=== PATIENT | male | born 1940 | race Caucasian/White ===

== ENCOUNTER → 2020-04-03 13:45 | Outpatient (BNVA) | payer MEDICARE, BC, SELFPAY | PROVIDERS: PCP Internal Medicine; Referring Provider Internal Medicine; Visit Provider Internal Medicine | DX: J44.9 Chronic obstructive pulmonary disease, unspecified (principal); J40 Bronchitis, not specified as acute or chronic; J30.9 Allergic rhinitis, unspecified; Z79.51 Long term (current) use of inhaled steroids | CPT/HCPCS: 99213 ==

== ENCOUNTER → 2020-05-01 13:27 | Outpatient (BNVA) | payer MEDICARE, BC, SELFPAY | PROVIDERS: PCP Internal Medicine; Referring Provider Internal Medicine; Visit Provider Internal Medicine | DX: J44.9 Chronic obstructive pulmonary disease, unspecified (principal); J30.9 Allergic rhinitis, unspecified; R26.81 Unsteadiness on feet; Z79.899 Other long term (current) drug therapy | CPT/HCPCS: 99212 ==

== ENCOUNTER 2020-05-09 | Outpatient (REF) | payer MEDICARE, BC, SELFPAY ==
[2020-05-09 11:08] LABS: MANUAL DIFF FLAG NO
[2020-05-09 11:10] LABS: Basophils Percent Auto 0.3 % (0-2); Eosinophils Absolute Auto 0.1 X10*3/uL (0.0-0.4); Hematocrit 25.4 % (42-52); Hemoglobin 8.5 g/dl (14.0-18.0); Imm Gran Abs Auto 0.33 X10*3/uL (0.00-0.03); Imm Gran Pct Auto 2.8 % (0.0-0.4); Lymphocytes Absolute Auto 1.6 X10*3/uL (1.2-4.9); Lymphocytes Percent Auto 13.5 % (20-40); Mean Corpuscular HGB Conc 33.5 g/dl (31.0-36.0); Mean Corpuscular Hemoglobin 32.4 pg (27.0-33.0); Mean Corpuscular Volume 96.9 fL (80-98); Mean Platelet Volume 10.2 fL (9.4-12.4); Monocytes Absolute Auto 0.7 X10*3/uL (0.1-1.2); Monocytes Percent Auto 6.1 % (2-11); Neutrophils Absolute Auto 9.1 X10*3/uL (2.0-8.3); Neutrophils Percent Auto 76.3 % (45-73); Platelet Count 264 X10*3/uL (160-400); Red Blood Count 2.62 X10*6/uL (4.60-5.80); Red Cell Distribution Width 16.1 % (11.0-16.0); White Blood Count 11.9 X10*3/uL (4.8-10.8)
== END 2020-05-09 00:01 | disposition home or self-care (01) ==
LOC: HO.LHD
PROVIDERS: Visit Provider Internal Medicine
DX: D64.9 Anemia, unspecified (principal)
CPT/HCPCS: 36415; 85025

== ENCOUNTER 2020-05-28 12:38 | Outpatient (REF) | payer MEDICARE, BC, SELFPAY ==
[2020-05-28 12:45] LABS: MANUAL DIFF FLAG NO
[2020-05-28 12:52] LABS: Basophils Percent Auto 0.3 % (0-2); Eosinophils Absolute Auto 0.1 X10*3/uL (0.0-0.4); Eosinophils Percent Auto 0.8 % (0-4); Hematocrit 26.7 % (42-52); Hemoglobin 8.7 g/dl (14.0-18.0); Imm Gran Abs Auto 0.24 X10*3/uL (0.00-0.03); Imm Gran Pct Auto 2.1 % (0.0-0.4); Lymphocytes Absolute Auto 2.6 X10*3/uL (1.2-4.9); Lymphocytes Percent Auto 21.9 % (20-40); Mean Corpuscular HGB Conc 32.6 g/dl (31.0-36.0); Mean Corpuscular Hemoglobin 31.5 pg (27.0-33.0); Mean Corpuscular Volume 96.7 fL (80-98); Mean Platelet Volume 10.7 fL (9.4-12.4); Monocytes Absolute Auto 0.8 X10*3/uL (0.1-1.2); Monocytes Percent Auto 6.5 % (2-11); Neutrophils Percent Auto 68.4 % (45-73); Platelet Count 364 X10*3/uL (160-400); Red Blood Count 2.76 X10*6/uL (4.60-5.80); Red Cell Distribution Width 16.1 % (11.0-16.0); White Blood Count 11.7 X10*3/uL (4.8-10.8)
[2020-05-28 13:33] LABS: Alanine Aminotransferase 19 U/L (0-40); Albumin Level 3.6 g/dL (3.5-5.0); Alkaline Phosphatase 55 U/L (39-117); Anion Gap 15 (12-20); Aspartate Amino Transferase 12 U/L (5-37); Blood Urea Nitrogen 24 mg/dL (9-16); Calcium 8.7 mg/dL (8.4-10.2); Carbon Dioxide 21 mmol/L (22-29); Chloride 109 mmol/L (96-108); Cholesterol 136 mg/dL; Estimated Glomerular Filt Rate > 60; Glucose Random 73 mg/dL (60-115); HDL Cholesterol 45 mg/dL; LDL Cholesterol Calculated 56 mg/dl; Potassium 4.4 mmol/l (3.3-5.1); Sodium 141 mmol/L (135-145); Total Protein 5.7 g/dL (6.5-8.0); Triglycerides 176 mg/dL
[2020-05-28 13:38] LABS: Vitamin D 25-OH Total 48.8 ng/mL (>30)
[2020-05-28 13:41] LABS: Bilirubin Total 0.3 mg/dL (0.0-1.0)
[2020-05-28 13:48] LABS: Creatinine Urine 70.85 mg/dL; Protein/Creatinine Ratio, Ur 1.92 (<0.2); Total Protein Urine Random 136 mg/dL (<12)
[2020-05-28 14:15] LABS: Folate > 20.0 ng/mL (> or = 4.0); Vitamin B12 > 2000 pg/mL (200-900)
[2020-05-28 14:17] LABS: Erythrocyte Sedimentation Rate 46 MM/HR (0-15)
[2020-05-28 17:27] LABS: Creatinine Urine 70.52 mg/dL
[2020-05-28 17:39] LABS: Microalbum/Creatinine Ratio Ur 1286.1 ug/mg cr
== END 2020-05-28 12:39 | disposition home or self-care (01) ==
LOC: HO.LNP 12:38
PROVIDERS: PCP Internal Medicine; Referring Provider Student in an Organized Health Care Education/Training Program; Visit Provider Internal Medicine
DX: E11.22 Type 2 diabetes mellitus with diabetic chronic kidney disease (principal); N18.9 Chronic kidney disease, unspecified; D63.1 Anemia in chronic kidney disease; I25.10 Atherosclerotic heart disease of native coronary artery without angina pectoris
CPT/HCPCS: 36415; 80053; 80061; 82043; 82306; 82607; 82746; 84156; 85025; 85652

== ENCOUNTER → 2020-05-29 11:16 | Outpatient (BNVA) | payer MEDICARE, BC, SELFPAY | PROVIDERS: PCP Internal Medicine; Visit Provider Internal Medicine | DX: J44.9 Chronic obstructive pulmonary disease, unspecified (principal); J30.9 Allergic rhinitis, unspecified; J45.909 Unspecified asthma, uncomplicated; D64.9 Anemia, unspecified; R26.81 Unsteadiness on feet | CPT/HCPCS: 99212 ==

== ENCOUNTER 2020-06-27 | Outpatient (REF) | payer MEDICARE, BC, SELFPAY ==
[2020-06-27 10:49] LABS: Hematocrit 25.9 % (42-52); Hemoglobin 8.6 g/dl (14.0-18.0); Mean Corpuscular HGB Conc 33.2 g/dl (31.0-36.0); Mean Corpuscular Volume 96.3 fL (80-98); Mean Platelet Volume 10.7 fL (9.4-12.4); Platelet Count 316 X10*3/uL (160-400); Red Blood Count 2.69 X10*6/uL (4.60-5.80); Red Cell Distribution Width 13.8 % (11.0-16.0); White Blood Count 13.9 X10*3/uL (4.8-10.8)
[2020-06-27 11:18] LABS: Alanine Aminotransferase 20 U/L (0-40); Albumin Level 3.8 g/dL (3.5-5.0); Alkaline Phosphatase 60 U/L (39-117); Anion Gap 16 (12-20); Aspartate Amino Transferase 10 U/L (5-37); Bilirubin Total 0.3 mg/dL (0.0-1.0); Blood Urea Nitrogen 39 mg/dL (9-16); Calcium 9.8 mg/dL (8.4-10.2); Carbon Dioxide 24 mmol/L (22-29); Chloride 104 mmol/L (96-108); Estimated Glomerular Filt Rate > 60; Glucose Random 196 mg/dL (60-115); Potassium 5.1 mmol/l (3.3-5.1); Sodium 139 mmol/L (135-145); Total Protein 5.8 g/dL (6.5-8.0)
== END 2020-06-27 00:01 | disposition home or self-care (01) ==
LOC: HO.LHD
PROVIDERS: Visit Provider Internal Medicine
DX: D64.9 Anemia, unspecified (principal)
CPT/HCPCS: 36415; 80053; 85027; Q3014

== ENCOUNTER 2020-06-27 23:25 | Inpatient (IN) | payer MEDICARE, BC, SELFPAY ==
[2020-06-27 23:43] VITALS: BP 121/55; PULSE 86; RESP 22; TEMP 36.4; O2SAT 95; BMI 26.6
[2020-06-28] VITALS (18 sets, daily range): BP systolic 128–177; BP diastolic 56–98; PULSE 73–88; RESP 14–24; TEMP 36.1–36.9; O2SAT 93–99
--- NOTE | 2020-06-28 00:16 | ECG_ITS ---
Test Reason : SOB Blood Pressure : / mmHG Vent. 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
--- NOTE | 2020-06-28 00:16 | XR_ITS ---
EXAMINATION: XR CHEST CLINICAL INFORMATION: Shortness of breath COMPARISON: 02/25/2020 TECHNIQUE: Frontal view of the chest was obtained. FINDINGS: Median sternotomy wires appear intact. Cardiac leads overlie the chest. Surgical clips overlie the mediastinum. The lungs are well expanded. There is no focal consolidation, edema, or effusion. No pneumothorax. The cardiomediastinal silhouette is within normal limits. No acute osseous abnormality. XR/XR chest 1V IMPRESSION: No acute pulmonary finding.
[2020-06-28] MEDS: Albuterol Sulfate (0.083%) 2.5 MG/3 ML VIAL.NEB 5 MG INHALE (01:24)
[2020-06-28 01:29] LABS: Basophils Percent Auto 0.1 % (0-2); Eosinophils Absolute Auto 0.1 X10*3/uL (0.0-0.4); Eosinophils Percent Auto 0.3 % (0-4); Hematocrit 25.7 % (42-52); Hemoglobin 8.5 g/dl (14.0-18.0); Imm Gran Abs Auto 0.37 X10*3/uL (0.00-0.03); Imm Gran Pct Auto 2.4 % (0.0-0.4); Lymphocytes Percent Auto 6.2 % (20-40); MANUAL DIFF FLAG NO; Mean Corpuscular HGB Conc 33.1 g/dl (31.0-36.0); Mean Corpuscular Hemoglobin 32.3 pg (27.0-33.0); Mean Corpuscular Volume 97.7 fL (80-98); Mean Platelet Volume 10.4 fL (9.4-12.4); Monocytes Absolute Auto 1.1 X10*3/uL (0.1-1.2); Monocytes Percent Auto 6.8 % (2-11); Neutrophils Percent Auto 84.2 % (45-73); Platelet Count 316 X10*3/uL (160-400); Red Blood Count 2.63 X10*6/uL (4.60-5.80); Red Cell Distribution Width 14.1 % (11.0-16.0); White Blood Count 15.4 X10*3/uL (4.8-10.8)
--- NOTE | 2020-06-28 01:29 | ED.SOB ---
HPI - SOB/Dyspnea General Chief Complaint: Dyspnea Stated Complaint: ASTHMA Time Seen by Provider: 06/28/20 00:02 Source: patient and EMS Mode of arrival: EMS Limitations: no limitations History of Present Illness HPI Narrative: 79-year-old male with history of COPD/asthma, former smoker, on daily steroid and bronchodilators therapy for his condition, was seen at his PCP office today for difficulty breathing was given bronchodilator partially felt better, then shortly started to worsen again called 911 with chief complain of coughing and difficulty breathing. Patient declined chest pain, patient had previous admission for COPD exacerbation in the past. Patient to not use supplemental oxygen at home. No lower extremity swelling or any or tenderness. Related Data Home Medications Medication Instructions Recorded Confirmed albuterol sulfate 90 mcg/actuation 90 mcg INHALATION Q6-8H PRN 03/17/20 06/27/20 aerosol inhaler alprazolam 0.5 mg tablet 0.5 mg PO DAILY PRN 03/17/20 06/27/20 blood sugar diagnostic #10 ea 03/17/20 06/27/20 ferrous sulfate 325 mg (65 mg 325 mg PO DAILY 03/17/20 06/27/20 iron) tablet,delayed release fluticasone 250 mcg-salmeterol 50 1 inh INHALATION DAILY 03/17/20 06/27/20 mcg/dose blistr powdr for inhalation fluticasone propionate 50 1 spray INTRANASAL DAILY 03/17/20 06/27/20 mcg/actuation nasal spray,suspension insulin glargine 100 unit/mL 100 unit SUBCUT DAILY 03/17/20 06/27/20 subcutaneous solution insulin lispro 100 unit/mL 100 sliding scale dose SUBCUT DAILY 03/17/20 06/27/20 subcutaneous solution ipratropium 0.5 mg-albuterol 3 mg 0.5 ml INHALATION Q4-6H 03/17/20 06/27/20 (2.5 mg base)/3 mL nebulization soln losartan 50 mg tablet 50 mg PO DAILY 03/17/20 06/27/20 tizanidine 4 mg tablet 4 mg PO TID 03/17/20 06/27/20 hydrocodone 5 mg-acetaminophen 325 1 tab PO BID PRN 05/29/20 06/27/20 mg tablet Previous Rx's Medication Instructions Recorded nystatin 100,000 unit/mL oral 4 ml PO .4 times a day PRN 90 Days 04/18/20 suspension #180 ml pantoprazole 40 mg tablet,delayed 40 mg PO DAILY #90 tab 05/06/20 release oxycodone 5 mg tablet 5 mg PO DAILY PRN 30 Days #30 tab 05/13/20 prednisone 5 mg tablet 5 mg PO DAILY 90 Days #90 tab 05/26/20 insulin syringe-needle U-100 0.5 #4 box 05/28/20 mL 31 gauge x 5/16 atorvastatin 20 mg tablet 20 mg PO DAILY #90 tab 06/03/20 furosemide 20 mg tablet 20 mg PO Q OTHER DAY 60 Days #30 06/18/20 tab diltiazem HCl 180 mg 180 mg PO BID 90 Days #180 cap 06/23/20 capsule,extended release 24 hr metformin 500 mg tablet 500 mg PO BID 90 Days #180 tab 06/23/20 sucralfate 1 gram tablet 1 g PO BID #180 tab 06/23/20 montelukast 10 mg tablet 10 mg PO DAILY #90 tab 06/25/20 Allergies Allergy/AdvReac Type Severity Reaction Status Date / Time ELLEN Inhibitors Allergy Severe DIFFICULTY Verified 06/28/20 01:47 [ELLEN INHIBITORS] BREATHING egg [EGGS] Allergy Severe DIFFICULTY Verified 06/28/20 01:47 BREATHING nut - unspecified [nut] Allergy Severe ANAPHYLAXIS Verified 06/28/20 01:47 acetic acid [VINEGAR] Allergy Unknown UNKNOWN Verified 06/28/20 01:47 hydrochlorothiazide Allergy Unknown Unknown Verified 06/28/20 01:47 mold Allergy Unknown SHORTNESS Verified 06/28/20 01:47 OF BREATH niacin [From SIMCOR] Allergy Unknown SHORTNESS Verified 06/28/20 01:47 OF BREATH penicillin V Allergy Unknown throat Verified 06/28/20 01:47 swelling simvastatin Allergy Unknown Unknown Verified 06/28/20 01:47 Sulfa (Sulfonamide Allergy Unknown SWELLING Verified 06/28/20 01:47 Antibiotics) [SULFA (SULFONAMIDE ANTIBIOTICS)] tramadol Allergy Unknown Unknown Verified 06/27/20 12:44 wheat Allergy Unknown UNKNOWN Verified 06/27/20 12:44 corn syrup [CORN SYRUP] AdvReac Mild N/D Verified 06/27/20 12:44 lactose [LACTOSE] AdvReac Mild N/V/D Unverified 04/03/20 14:54 FLU VACCINE Allergy Unknown Difficulty Uncoded 04/03/20 14:54 Breathing Review of Systems Review of Systems: All other systems are reviewed and are negative Constitutional: Reports as per HPI and Reports no additional constitutional complaints Eyes: Reports as per HPI and Reports no additional eye complaints Reports system reviewed and no additional complaints, except as documented Cardiovascular: Reports as per HPI and Reports no additional cardiovascular complaints Respiratory: Reports as per HPI and Reports no additional respiratory complaints Gastrointestinal: Reports as per HPI and Reports no additional gastrointestinal complaints Genitourinary: Reports no additional female genitourinary complaints Musculoskeletal: Reports no additional musculoskeletal complaints Skin/Breast: Reports system reviewed and no additional complaints, except as docu Psychiatric: Reports no additional psychiatric complaints Endocrine: Reports no additional endocrine complaints Hematologic/Lymphatic: Reports no additional hematologic/lymphatic complaints Allergic/Immunologic: Reports no additional allergic/immunologic complaints Reports system reviewed and no additional complaints, except as documented and Reports Abnormal speech present [facility] Past Medical History Medical History Allergic rhinitis Anxiety Bronchitis Cancer of skin of right ear Cataracts, bilateral Cholelithiasis Chronic kidney disease (CKD) stage G2/A1, mildly decreased glomerular filtration rate (GFR) between 60-89 mL/min/1.73 square meter and albuminuria creatinine ratio less than 30 mg/g COPD (chronic obstructive pulmonary disease) Coronary artery disease Erectile dysfunction GERD (gastroesophageal reflux disease) Hx of hiatal hernia Hypertension Osteoporosis Peripheral vascular disease PMR (polymyalgia rheumatica) Surgical History Hx of appendectomy S/P triple vessel bypass Family History Family History Family/Other Cancer Social History Social History Smoking Status: Former smoker Packs Per Day: 1 Advance Directives: No Physical Exam Vital Signs: Vital Signs: Last Vital Signs Temp 98.4 F 06/28/20 00:46 Pulse 78 06/28/20 01:35 Resp 20 06/28/20 00:46 BP 155/65 H 06/28/20 00:46 Pulse Ox 96 06/28/20 00:46 Body Mass Index 26.6 Vital signs have been reviewed as normal and appeared to be correct. Blood pressure in the high range. Heart rate normal. Respiration rate normal. Temperature normal. Oxygen saturation normal. Appearance: Alert. Oriented X3. No acute distress. Head: Normal external exam. Normocephalic. Atraumatic. No Jamil signs noted. No raccoon eyes noted Eyes: PERRLA. EOMI. Conjunctiva and sclera normal. Eyelids normal. ENT: EAC normal. TM's Normal. Pharynx normal. Uvula midline. Moist mucous membranes. No trismus noted. No drooling noted. No muffled voice noted. Neck: Normal inspection. Neck supple. FROM. No adenopathy. Thyroid Normal. No meningeal signs. No neck mass noted. CVS: Normal heart rate and rhythm. Heart sound normal. No murmurs noted. Pulses normal throughout. Respiratory: Mild respiratory distress. Painless inspiration. Moderate diffuse expiratory wheezes. No rales/rhonchi noted. Chest nontender. No accessory muscle usage noted, decreased air movement noted. Abdomen: Soft and nontender. Bowel sounds normal in all 4 quadrants. No distention noted. No organomegaly noted. No visible injury noted. Back: No CVA tenderness. Full range of motion noted. Skin: Skin warm and dry. Normal skin color. Normal skin turgor. No rashes/lesions/lacerations noted. Extremities: No lower extremity edema. Extremities exhibit normal range of motion. Extremities nontender. Neuro: Oriented X 3. No motor deficit. No sensory deficit. Reflexes normal. Course Course Course Narrative: Assessment and plan. 79-year-old male with history of COPD presented with COPD exacerbation. Admit for continuous bronchodilator, Solu-Medrol IV, magnesium. Leukocytosis (chronic likely secondary to chronic prednisone use). Not meeting criteria for SIRS. Lactic acidosis due to albuterol. MDM - SOB/Dyspnea Lab Data Result diagrams: 06/28/20 01:17 06/28/20 01:17 Labs: Lab Results 06/28/20 06/28/20 06/28/20 Range/Units 01:17 01:17 01:17 WBC 15.4 H (4.8-10.8) X10*3/uL RBC 2.63 L (4.60-5.80) X10*6/uL Hgb 8.5 L (14.0-18.0) g/dl Hct 25.7 L (42-52) % MCV 97.7 (80-98) fL MCH 32.3 (27.0-33.0) pg MCHC 33.1 (31.0-36.0) g/dl RDW 14.1 (11.0-16.0) % Plt Count 316 (160-400) X10*3/uL MPV 10.4 (9.4-12.4) fL Immature Gran % (Auto) 2.4 H (0.0-0.4) % Neut % (Auto) 84.2 H (45-73) % Lymph % (Auto) 6.2 L (20-40) % [place] % (Auto) 6.8 (2-11) % Eos % (Auto) 0.3 (0-4) % Baso % (Auto) 0.1 (0-2) % Lymph # (Auto) 1.0 L (1.2-4.9) X10*3/uL [place] # (Auto) 1.1 (0.1-1.2) X10*3/uL Eos # (Auto) 0.1 (0.0-0.4) X10*3/uL Baso # (Auto) 0.0 (0.0-0.2) X10*3/uL Abs Immat Gran (auto) 0.37 H (0.00-0.03) X10*3/uL Absolute Neuts (auto) 13.0 H (2.0-8.3) X10*3/uL Absolute Nucleated RBC 0.000 (0.0-0.012) X10*3/uL Nucleated RBC % (auto) 0.0 (0.0-0.2) /100WBC Sodium 140 (135-145) mmol/L Potassium 4.8 (3.3-5.1) mmol/l Chloride 104 (96-108) mmol/L Carbon Dioxide 25 (22-29) mmol/L Anion Gap 16 (12-20) BUN 42 H (9-16) mg/dL Creatinine 1.39 (0.5-1.4) mg/dL Estim Creat Clear Calc 41.0 Estimated GFR 49 Random Glucose 137 H (60-115) mg/dL Lactic Acid 3.3 H* (0.5-2.0) mmol/L Calcium 9.9 (8.4-10.2) mg/dL B-Natriuretic Peptide (<100) pg/mL Lipase 28 (8-78) U/L 06/28/20 Range/Units 01:17 WBC (4.8-10.8) X10*3/uL RBC (4.60-5.80) X10*6/uL Hgb (14.0-18.0) g/dl Hct (42-52) % MCV (80-98) fL MCH (27.0-33.0) pg MCHC (31.0-36.0) g/dl RDW (11.0-16.0) % Plt Count (160-400) X10*3/uL MPV (9.4-12.4) fL Immature Gran % (Auto) (0.0-0.4) % Neut % (Auto) (45-73) % Lymph % (Auto) (20-40) % [place] % (Auto) (2-11) % Eos % (Auto) (0-4) % Baso % (Auto) (0-2) % Lymph # (Auto) (1.2-4.9) X10*3/uL [place] # (Auto) (0.1-1.2) X10*3/uL Eos # (Auto) (0.0-0.4) X10*3/uL Baso # (Auto) (0.0-0.2) X10*3/uL Abs Immat Gran (auto) (0.00-0.03) X10*3/uL Absolute Neuts (auto) (2.0-8.3) X10*3/uL Absolute Nucleated RBC (0.0-0.012) X10*3/uL Nucleated RBC % (auto) (0.0-0.2) /100WBC Sodium (135-145) mmol/L Potassium (3.3-5.1) mmol/l Chloride (96-108) mmol/L Carbon Dioxide (22-29) mmol/L Anion Gap (12-20) BUN (9-16) mg/dL Creatinine (0.5-1.4) mg/dL Estim Creat Clear Calc Estimated GFR Random Glucose (60-115) mg/dL Lactic Acid (0.5-2.0) mmol/L Calcium (8.4-10.2) mg/dL B-Natriuretic Peptide 160 H (<100) pg/mL Lipase (8-78) U/L Imaging Data Chest x-ray: Radiologist's impression: No acute pathology. ECG Data Interpretation: Normal sinus rhythm at 75 beats per minutes, LVH, left axis deviation, normal intervals. Discharge Plan Discharge Clinical Impression: Acute exacerbation of chronic obstructive pulmonary disease Patient Disposition: Admitted As Inpatient
[2020-06-28] MEDS: Albuterol/Iprat 2.5/0.5MG 3 ML AMPUL.NEB INHALE (01:33)
[2020-06-28] MEDS: Magnesium Sulfate/H2O 2 GM/50 ML PIGGYBACK IV (01:55)
[2020-06-28 01:59] LABS: Lactic Acid 3.3 mmol/L (0.5-2.0)
[2020-06-28 02:02] LABS: Anion Gap 16 (12-20); Blood Urea Nitrogen 42 mg/dL (9-16); Calcium 9.9 mg/dL (8.4-10.2); Carbon Dioxide 25 mmol/L (22-29); Chloride 104 mmol/L (96-108); Estimated Glomerular Filt Rate 49; Glucose Random 137 mg/dL (60-115); Lipase 28 U/L (8-78); Potassium 4.8 mmol/l (3.3-5.1); Sodium 140 mmol/L (135-145)
[2020-06-28 02:05] LABS: B Type Natriuretic Peptide 160 pg/mL (<100)
[2020-06-28 02:14] LABS: Troponin-I High Sensitivity 48.9 ng/L (<3.5-35.0)
[2020-06-28 02:17] LABS: Influenza A PCR NEGATIVE (Negative); Influenza B PCR NEGATIVE (Negative); Resp Syncy Virus RNA Qual PCR NEGATIVE (Negative); SARS COV2 PCR INHOUSE NEGATIVE (Negative)
[2020-06-28 03:24] LABS: Reflex Lactate? Lactic Acid Added
--- NOTE | 2020-06-28 03:31 | P.HPHOSP_ITS ---
History of Present Illness Date of Service: 06/28/20 Chief Complaint: Shortness of breath, wheezing, failed outpatient treatment An 79 years old male with PMH of PMR, CKD, COPD on chronic prednisone who presents to the hospital with shortness of breath and wheezing, increased weakness. The patient reports that his baseline has been deteriorating over the last few months as he became much weaker and unable to get up and walk. His COPD has been fairly controlled over that time. Three days ago he started to have difficulty breathing associated with wheezes. He discussed with Dr. Holt and started home prednisone 40 mg daily with usage of the nebulizers 4 times a day but he continued to get worse and more dyspneic with any exertion so we decided to come to the hospital after discussing with Dr. Holt. In the emergency he was found to be hypoxic on multiple occasions on room air in 80s with minimal movement which recovers to 90s when he sits still. Treated with steroids, nebulizer and magnesium with fair response admitted to the hospital for further evaluation and treatment. Review of Systems Review of Systems: No fever, chills but reports general weakness and lethargy No chest pain, palpitation Dyspnea with minimal exertion, wheezes, cough No abdominal pain, nausea or vomiting No urinary symptoms No any rash or wounds PMFSH Medical History Allergic rhinitis Anxiety Bronchitis Cancer of skin of right ear Cataracts, bilateral Cholelithiasis Chronic kidney disease (CKD) stage G2/A1, mildly decreased glomerular filtration rate (GFR) between 60-89 mL/min/1.73 square meter and albuminuria creatinine ratio less than 30 mg/g COPD (chronic obstructive pulmonary disease) Coronary artery disease Erectile dysfunction GERD (gastroesophageal reflux disease) Hx of hiatal hernia Hypertension Osteoporosis Peripheral vascular disease PMR (polymyalgia rheumatica) Family History Family/Other Cancer Surgical History Hx of appendectomy S/P triple vessel bypass Social History Smoking Status: Unknown if ever smoked Packs Per Day: 1 Use of substances other than those prescribed or required for medical reasons: No Advance Directives: No Meds Allergies Allergy/AdvReac Type Severity Reaction Status Date / Time ELLEN Inhibitors Allergy Severe DIFFICULTY Verified 06/28/20 01:47 [ELLEN INHIBITORS] BREATHING egg [EGGS] Allergy Severe DIFFICULTY Verified 06/28/20 01:47 BREATHING nut - unspecified [nut] Allergy Severe ANAPHYLAXIS Verified 06/28/20 01:47 acetic acid [VINEGAR] Allergy Unknown UNKNOWN Verified 06/28/20 01:47 hydrochlorothiazide Allergy Unknown Unknown Verified 06/28/20 01:47 mold Allergy Unknown SHORTNESS Verified 06/28/20 01:47 OF BREATH niacin [From SIMCOR] Allergy Unknown SHORTNESS Verified 06/28/20 01:47 OF BREATH penicillin V Allergy Unknown throat Verified 06/28/20 01:47 swelling simvastatin Allergy Unknown Unknown Verified 06/28/20 01:47 Sulfa (Sulfonamide Allergy Unknown SWELLING Verified 06/28/20 01:47 Antibiotics) [SULFA (SULFONAMIDE ANTIBIOTICS)] tramadol Allergy Unknown Unknown Verified 06/27/20 12:44 wheat Allergy Unknown UNKNOWN Verified 06/27/20 12:44 corn syrup [CORN SYRUP] AdvReac Mild N/D Verified 06/27/20 12:44 lactose [LACTOSE] AdvReac Mild N/V/D Unverified 04/03/20 14:54 FLU VACCINE Allergy Unknown Difficulty Uncoded 04/03/20 14:54 Breathing Home Medications Medication Instructions Recorded Confirmed Type albuterol sulfate 90 mcg/actuation 90 mcg INHALATION Q6-8H PRN 03/17/20 06/27/20 History aerosol inhaler alprazolam 0.5 mg tablet 0.5 mg PO DAILY PRN 03/17/20 06/27/20 History blood sugar diagnostic #10 ea 03/17/20 06/27/20 History ferrous sulfate 325 mg (65 mg 325 mg PO DAILY 03/17/20 06/27/20 History iron) tablet,delayed release fluticasone 250 mcg-salmeterol 50 1 inh INHALATION DAILY 03/17/20 06/27/20 History mcg/dose blistr powdr for inhalation fluticasone propionate 50 1 spray INTRANASAL DAILY 03/17/20 06/27/20 History mcg/actuation nasal spray,suspension insulin glargine 100 unit/mL 100 unit SUBCUT DAILY 03/17/20 06/27/20 History subcutaneous solution insulin lispro 100 unit/mL 100 sliding scale dose SUBCUT DAILY 03/17/20 06/27/20 History subcutaneous solution ipratropium 0.5 mg-albuterol 3 mg 0.5 ml INHALATION Q4-6H 03/17/20 06/27/20 History (2.5 mg base)/3 mL nebulization soln losartan 50 mg tablet 50 mg PO DAILY 03/17/20 06/27/20 History tizanidine 4 mg tablet 4 mg PO TID 03/17/20 06/27/20 History hydrocodone 5 mg-acetaminophen 325 1 tab PO BID PRN 05/29/20 06/27/20 History mg tablet Physical Exam Vital Signs and Narrative: Vital Signs: Last Vital Signs Temp 98.4 F 06/28/20 00:46 Pulse 73 06/28/20 02:20 Resp 20 06/28/20 03:12 BP 140/63 H 06/28/20 02:20 Pulse Ox 96 06/28/20 02:20 Body Mass Index 26.6 Constitutional : Alert, oriented, in mild respiratory distress, O2 sats dropping to 80s during interview while the patient talking Neck : Normal inspection, Supple Cardiovascular : RRR, S1 S2, chronic lower extremities skin changes with no edema Respiratory : Decreased bilateral air entry, bilateral scattered wheezes and rhonchi, no crackles Gastrointestinal: soft, lax, Normal bowel sounds, Non tender Skin : Warm/Dry, No rash Neurological : Alert & oriented x3, No focal deficit Results Labs CBC and Chem 7: 06/28/20 01:17 06/28/20 01:17 Labs: Laboratory Results - last 24 hr 06/28/20 06/28/20 06/28/20 01:17 01:17 01:17 MCV 97.7 MCH 32.3 MCHC 33.1 RDW 14.1 Plt Count 316 MPV 10.4 Immature Gran % (Auto) 2.4 H Neut % (Auto) 84.2 H Lymph % (Auto) 6.2 L [place] % (Auto) 6.8 Eos % (Auto) 0.3 Baso % (Auto) 0.1 Lymph # (Auto) 1.0 L [place] # (Auto) 1.1 Eos # (Auto) 0.1 Baso # (Auto) 0.0 Abs Immat Gran (auto) 0.37 H Absolute Neuts (auto) 13.0 H Absolute Nucleated RBC 0.000 Nucleated RBC % (auto) 0.0 Anion Gap 16 Estim Creat Clear Calc 41.0 Estimated GFR 49 Random Glucose 137 H Lactic Acid Calcium 9.9 Troponin I High Sens B-Natriuretic Peptide Lipase 28 Coronavirus (PCR) NEGATIVE Influenza Type A (PCR) NEGATIVE Influenza Type B (PCR) NEGATIVE RSV RNA Qual (PCR) NEGATIVE 06/28/20 06/28/20 06/28/20 01:17 01:17 01:17 MCV MCH MCHC RDW Plt Count MPV Immature Gran % (Auto) Neut % (Auto) Lymph % (Auto) [place] % (Auto) Eos % (Auto) Baso % (Auto) Lymph # (Auto) [place] # (Auto) Eos # (Auto) Baso # (Auto) Abs Immat Gran (auto) Absolute Neuts (auto) Absolute Nucleated RBC Nucleated RBC % (auto) Anion Gap Estim Creat Clear Calc Estimated GFR Random Glucose Lactic Acid 3.3 H* Calcium Troponin I High Sens 48.9 H B-Natriuretic Peptide 160 H Lipase Coronavirus (PCR) Influenza Type A (PCR) Influenza Type B (PCR) RSV RNA Qual (PCR) Imaging Radiologist's Impressions: Impressions Chest X-Ray 06/28/20 00:16 IMPRESSION: No acute pulmonary finding. 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 Acute hypoxic respiratory failure COPD exacerbation O2 sat drops to 80s on multiple occasions in ED with minimal exertion CXR showing no infiltrates O2 supplement as needed DuoNeb q.4 Subacute a mole Q 2 p.r.n. Methylprednisone 40 mg daily Start azithromycin 500 daily To check home O2 evaluation Physical deconditioning Progressive over the last few months Related to chronic anemia, poor respiratory status, PMR flare up Pending bone Hubbard biopsy by Hematology On chronic prednisone, to continue steroids To check PT Chronic leukocytosis Likely related to chronic prednisone usage History CAD Continue Cardizem, atorvastatin and Lasix Diabetes type 2 Continue Lantus 100 units daily SSI Diabetic diet DVT PPX Lovenox
[2020-06-28] MEDS: Enoxaparin Sodium 40 MG/0.4 ML SYRINGE SUBCUT (04:13)
[2020-06-28] MEDS: Azithromycin 500 MG TABLET PO (04:14)
[2020-06-28 04:56] LABS: Glucose, Whole Blood 282 mg/dL (60-115)
[2020-06-28 05:22] LABS: ~Lactic Acid-LAB USE ONLY 3.8 mmol/L (0.5-2.0)
[2020-06-28 06:59] LABS: Reflex Lactate? 2 Y
[2020-06-28] MEDS: Albuterol/Iprat 2.5/0.5MG 3 ML AMPUL.NEB 0.5 ML INHALE ×3 (07:15→16:24)
[2020-06-28] MEDS: Omeprazole 20 MG CAPSULE.DR PO (07:20)
[2020-06-28 09:21] LABS: Glucose, Whole Blood 366 mg/dL (60-115)
[2020-06-28] MEDS: TiZANidine HCL 4 MG TABLET PO ×3 (10:58→22:00)
[2020-06-28] MEDS: Sucralfate 1 GM TABLET PO ×2 (10:59→21:59)
[2020-06-28] MEDS: Furosemide 20 MG TABLET PO (10:59)
[2020-06-28] MEDS: Losartan Potassium 50 MG TABLET PO (10:59)
[2020-06-28] MEDS: dilTIAZem HCL CD 180 MG CAP.ER.24H PO ×2 (11:00→22:01)
[2020-06-28] MEDS: Atorvastatin Calcium 20 MG TABLET PO (11:00)
[2020-06-28] MEDS: 0.9 % Sodium Chloride Flush 3 ML SYRINGE IVFLUSH ×2 (11:01→18:19)
[2020-06-28] MEDS: Fluticasone Propionate Nasal 16 GM SPRAY 1 SPRAY NOSTRIL-B (11:01)
[2020-06-28] MEDS: Montelukast Sodium 10 MG TABLET PO (11:01)
[2020-06-28] MEDS: ALPRAZolam 0.5 MG TABLET 1 MG PO (11:15)
[2020-06-28] MEDS: Insulin Glargine,Hum.rec.anlog 100 UNIT/ML 10 ML VIAL SUBCUT (11:48)
[2020-06-28 12:54] LABS: ~Lactic Acid-LAB USE ONLY 4.6 mmol/L (0.5-2.0)
--- NOTE | 2020-06-28 14:22 | PM.EVENT ---
Event Note Date of Service: 06/28/20 Event Note: patient seen and examined at bedside reported shortness of breath, was little lethargic but arousable and answering questions on exam lungs bilateral wheezing abdomen soft CVS rate and rhythm regular COPD exacerbation acute hypoxic respiratory failure continue oxygen supplementation steroid and nebulizer treatment lactic acidosis likely secondary to nebulizer treatment not from sepsis see H&P from today for more detail
--- NOTE | 2020-06-28 14:38 | PC.NURSE ---
Pt alert but needs reorientation to plan. Is aware of person and place. NSR on monitor. labored resp with minimal bed movement. cleansed of incontinent urine. trace black stool cleansed. skin pale warm dry. warm blanket. repositioned.
[2020-06-28 14:44] LABS: Glucose, Whole Blood 322 mg/dL (60-115)
[2020-06-28 15:59] LABS: Pt Ventilation O2% 2 L
[2020-06-28 16:05] LABS: ABG PCO2 35 mmhg (32-45); HCO3 ABG 23 mmol/l (22-26); PO2 ABG 72 mmhg (83-108); pH ABG 7.44 (7.35-7.45)
[2020-06-28 16:06] LABS: Blood Gas Serial # 5414; Oxygen Saturation ABG 94.6 %
--- NOTE | 2020-06-28 16:48 | PC.NURSE ---
pt has been sleepuing but arousable to light touch last 1 hr. barely touched food on tray. skin pwd. unlabored resp
[2020-06-28 18:24] LABS: Glucose, Whole Blood 273 mg/dL (60-115)
--- NOTE | 2020-06-28 18:30 | PC.NURSE ---
incontiente of urine. cleansed again and repositioned l side lying. some difficuly swallowing whole pill but succeeded with lots of water. no choking, gagging. skin pwd. sleeping on and off. awaits bed.
[2020-06-28 21:02] LABS: Glucose, Whole Blood 262 mg/dL (60-115)
[2020-06-28] MEDS: Insulin Lispro 100 UNIT/ML 3 ML VIAL SUBCUT (22:00)
[2020-06-28 22:48] LABS: Glucose, Whole Blood 379 mg/dL (60-115)
[2020-06-29] VITALS (11 sets, daily range): BP systolic 132–152; BP diastolic 65–68; PULSE 66–83; RESP 15–22; TEMP 36.4–36.8; O2SAT 92–99
[2020-06-29] MEDS: 0.9 % Sodium Chloride Flush 3 ML SYRINGE IVFLUSH ×2 (00:12→09:29)
[2020-06-29] MEDS: Azithromycin 500 MG TABLET PO (04:29)
[2020-06-29] MEDS: Enoxaparin Sodium 40 MG/0.4 ML SYRINGE SUBCUT (04:29)
[2020-06-29 06:54] LABS: Anion Gap 20 (12-20); Blood Urea Nitrogen 47 mg/dL (9-16); Calcium 9.6 mg/dL (8.4-10.2); Carbon Dioxide 21 mmol/L (22-29); Chloride 105 mmol/L (96-108); Creatinine Clr Calc Pharmacy 53.7; Estimated Glomerular Filt Rate > 60; Glucose Random 173 mg/dL (60-115); Potassium 4.7 mmol/l (3.3-5.1); Sodium 141 mmol/L (135-145)
[2020-06-29] MEDS: Albuterol/Iprat 2.5/0.5MG 3 ML AMPUL.NEB 0.5 ML INHALE ×4 (07:23→20:10)
[2020-06-29] MEDS: TiZANidine HCL 4 MG TABLET PO ×3 (09:21→22:05)
[2020-06-29] MEDS: Sucralfate 1 GM TABLET PO ×2 (09:21→22:03)
[2020-06-29] MEDS: Atorvastatin Calcium 20 MG TABLET PO (09:21)
[2020-06-29] MEDS: Losartan Potassium 50 MG TABLET PO (09:21)
[2020-06-29] MEDS: Omeprazole 20 MG CAPSULE.DR PO (09:22)
[2020-06-29] MEDS: Insulin Glargine,Hum.rec.anlog 100 UNIT/ML 10 ML VIAL SUBCUT (09:27)
[2020-06-29] MEDS: Insulin Lispro 100 UNIT/ML 3 ML VIAL SUBCUT ×4 (09:28→22:02)
[2020-06-29] MEDS: dilTIAZem HCL CD 180 MG CAP.ER.24H PO ×2 (10:30→22:03)
[2020-06-29] MEDS: Montelukast Sodium 10 MG TABLET PO (10:30)
[2020-06-29] MEDS: Fluticasone Propionate Nasal 16 GM SPRAY 1 SPRAY NOSTRIL-B (10:30)
[2020-06-29 12:11] LABS: Glucose, Whole Blood 314 mg/dL (60-115)
--- NOTE | 2020-06-29 16:02 | P.PNIM_ITS ---
Subjective Subjective Date of Service: 06/29/20 Interval History: Patient admitted for generalized weakness with difficulty in ambulation, hypoxic respiratory failure with underlying COPD, this a.m. patient denies shortness of breath but complaining of bilateral lower extremity weakness to the point that requires 2 assist with ambulation, denies chest pain, denies shortness of breath at rest, no chest pain, no headache, no dizziness. Review of Systems General generalized weakness, difficulty in ambulation, no headache, no dizziness, no fever chills. CVS no chest pain, no palpitation. Respiratory no cough, no sputum production, no respiratory distress. Gastrointestinal no nausea, no vomiting, no abdominal pain Physical Exam Vital Signs: Vital Signs: Last Vital Signs Temp 97.0 F 06/28/20 18:29 Pulse 83 06/29/20 15:06 Resp 20 06/29/20 12:30 BP 144/68 H 06/29/20 12:30 Pulse Ox 97 06/29/20 12:30 Body Mass Index 26.6 Const: Other: General patient resting comfortably in no resp. distress. Face edematous, puffy Neck is supple no JVD. CVS regular rate rhythm, Respiratory lungs diminished breath sound clear to auscultation, no respiratory distress Gastrointestinal abdomen soft, nontender, bowel sounds audible, no no guarding , no rigidity. Extremities no clubbing cyanosis or edema. Neuro is speech clear, bilateral lower extremity weakness > upper extremity. Skin no rash Objective Data Current Medications Generic Name Dose Route Start Last Admin Trade Name Freq PRN Reason Stop Dose Admin Acetaminophen 650 mg 06/28/20 03:29 Acetaminophen 325 Mg Tablet PO Q6H PRN Pain, Mild (Pain Scale 1-3) Hydrocodone Bitart/Acetaminophen 1 tab 06/28/20 03:29 Hydrocodone Bit/Acetam 5/325 Tablet PO BID PRN Pain Albuterol Sulfate 2.5 mg 06/28/20 03:29 Albuterol Sulfate (0.083%) 2.5 Mg/3 Ml Vial.Neb INHALE Q2H PRN Shortness of Breath/Wheezing Albuterol/Ipratropium 0.5 ml 06/28/20 04:00 06/29/20 15:04 Albuterol/Iprat 2.5/0.5mg 3 Ml Ampul.Neb INHALE 0.5 ml RQ4H MARIAM Administration Alprazolam 0.5 mg 06/28/20 03:29 Alprazolam 0.5 Mg Tablet PO DAILY PRN Anxiety Atorvastatin Calcium 20 mg 06/28/20 09:00 06/29/20 09:21 Atorvastatin Calcium 20 Mg Tablet PO 20 mg DAILY MARIAM Administration Azithromycin 500 mg 06/28/20 03:30 06/29/20 04:29 Azithromycin 500 Mg Tablet PO 500 mg Q24H MARIAM Administration Diltiazem HCl 180 mg 06/28/20 09:00 06/29/20 10:30 Diltiazem Hcl Cd 180 Mg Cap.Er.24h PO 180 mg BID MARIAM Administration Protocol Enoxaparin Sodium 40 mg 06/28/20 03:30 06/29/20 04:29 Enoxaparin Sodium 40 Mg/0.4 Ml Syringe SUBCUT 40 mg Q24H MARIAM Administration Fluticasone Propionate 1 spray 06/28/20 09:00 06/29/20 10:30 Fluticasone Propionate Nasal 16 Gm Wilber NOSTRIL-B 1 spray DAILY MARIAM Administration Furosemide 20 mg 06/28/20 09:00 06/28/20 10:59 Furosemide 20 Mg Tablet PO 20 mg Q48H MARIAM Administration Protocol Insulin Glargine 100 unit 06/28/20 09:00 06/29/20 09:27 Insulin Glargine,Hum.Rec.Anlog 100 Unit/Ml 10 Ml Vial SUBCUT 100 unit DAILY MARIAM Administration Insulin Human Lispro 0 unit 06/28/20 07:30 06/29/20 14:32 Insulin Lispro 100 Unit/Ml 3 Ml Vial SUBCUT 8 unit QIDACHS MARIAM Administration Protocol Losartan Potassium 50 mg 06/28/20 09:00 06/29/20 09:21 Losartan Potassium 50 Mg Tablet PO 50 mg DAILY MARIAM Administration Protocol Magnesium Hydroxide 30 ml 06/28/20 03:29 Milk Of Magnesia 30 Ml Oral.Susp PO DAILY PRN Constipation Methylprednisolone Sodium Succinate 40 mg 06/28/20 09:00 06/29/20 09:33 Methylprednisolone Sod Succ/Pf 40 Mg/Ml Vial IVPUSH 40 mg DAILY MARIAM Administration Montelukast Sodium 10 mg 06/28/20 09:00 06/29/20 10:30 Montelukast Sodium 10 Mg Tablet PO 10 mg DAILY MARIAM Administration Omeprazole 20 mg 06/28/20 06:30 06/29/20 09:22 Omeprazole 20 Mg Capsule. PO 20 mg DAILY@0630 MARIAM Administration Oxycodone HCl 5 mg 06/28/20 03:29 Oxycodone Hcl Immed Release 5 Mg Tablet PO DAILY PRN pain Sodium Chloride 3 ml 06/28/20 08:00 06/29/20 09:29 0.9 % Sodium Chloride Flush 3 Ml Syringe IVFLUSH 3 ml QSHIFT MARIAM Administration Sucralfate 1 gm 06/28/20 09:00 06/29/20 09:21 Sucralfate 1 Gm Tablet PO 1 gm BID MARIAM Administration Tizanidine HCl 4 mg 06/28/20 09:00 06/29/20 14:33 Tizanidine Hcl 4 Mg Tablet PO 4 mg TID MARIAM Administration Labs CBC & Chem 7: 06/28/20 01:17 06/29/20 06:36 Microbiology Microbiology Results: Microbiology 06/28/20 01:17 Blood - Venous Blood Culture - Preliminary No growth after 24 hours. 06/28/20 01:17 Blood - Venous Blood Culture - Preliminary No growth after 24 hours. Assessment and Plan (1) Acute respiratory failure with hypoxia: Status: Acute (2) Acute exacerbation of chronic obstructive pulmonary disease: Status: Acute (3) correction systemic steroid user: Status: Acute (4) Physical deconditioning: Status: Acute Assessment and Plan: An 79 years old male with PMH of PMR, CKD, COPD on chronic prednisone who presents to the hospital with shortness of breath and wheezing, increased weakness. 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 Grant ESR 46, will check CRP /CPK Await physical therapy input Chronic leukocytosis Likely related to chronic prednisone usage Chronic normocytic anemia with mild iron deficiency and chronic kidney disease status post bone marrow biopsy follow report History CAD Continue Cardizem, atorvastatin and Lasix Diabetes type 2 Continue Lantus 100 units daily,SSI and diabetic diet DVT PPX On Lovenox hematocrit dropping will change to compression boots
[2020-06-29 17:24] LABS: Glucose, Whole Blood 274 mg/dL (60-115)
--- NOTE | 2020-06-29 19:05 | PC.NURSE ---
attempted to give report. radha rn to call back in 5 minutes.
[2020-06-29 20:59] LABS: Glucose, Whole Blood 272 mg/dL (60-115)
[2020-06-29] MEDS: ALPRAZolam 0.5 MG TABLET PO (22:02)
[2020-06-30] VITALS (12 sets, daily range): BP systolic 146–165; BP diastolic 66–82; PULSE 72–85; RESP 17–20; TEMP 36–37.2; O2SAT 81–98
[2020-06-30] MEDS: 0.9 % Sodium Chloride Flush 3 ML SYRINGE IVFLUSH ×3 (00:10→23:39)
[2020-06-30] MEDS: Albuterol/Iprat 2.5/0.5MG 3 ML AMPUL.NEB 0.5 ML INHALE ×5 (00:17→19:32)
[2020-06-30] MEDS: Enoxaparin Sodium 40 MG/0.4 ML SYRINGE SUBCUT (04:31)
[2020-06-30] MEDS: Azithromycin 500 MG TABLET PO (04:31)
[2020-06-30] MEDS: Omeprazole 20 MG CAPSULE.DR PO (06:22)
[2020-06-30 08:12] LABS: Glucose, Whole Blood 145 mg/dL (60-115)
[2020-06-30] MEDS: Montelukast Sodium 10 MG TABLET PO (09:12)
[2020-06-30] MEDS: dilTIAZem HCL CD 180 MG CAP.ER.24H PO ×2 (09:12→20:32)
[2020-06-30] MEDS: Sucralfate 1 GM TABLET PO ×2 (09:12→20:27)
[2020-06-30] MEDS: Losartan Potassium 50 MG TABLET PO (09:12)
[2020-06-30] MEDS: Furosemide 20 MG TABLET PO (09:12)
[2020-06-30] MEDS: TiZANidine HCL 4 MG TABLET PO ×3 (09:13→20:26)
[2020-06-30] MEDS: Insulin Glargine,Hum.rec.anlog 100 UNIT/ML 10 ML VIAL SUBCUT (09:13)
[2020-06-30] MEDS: Atorvastatin Calcium 20 MG TABLET PO (09:13)
[2020-06-30] MEDS: Fluticasone Propionate Nasal 16 GM SPRAY 1 SPRAY NOSTRIL-B (09:15)
--- NOTE | 2020-06-30 10:24 | MHC.CM.PN ---
Addendum entered by Ayana Murillo RN 07/02/20 08:30: CAROL PINA () [phone] Original Note: IMM 06/30/20, PT DISCHARGE PLAN HOME W/RESUMPTION OF [facility] FOR NURSING/PT AND OT VS STR/PULMONARY REHAB, PER PT NEEDS ASSISTANCE WITH TRANSPORTATION BECAUSE HE HASN'T BEEN ABLE TO MANAGE STAIRS, PT REPORTS HE HAS BEEN MUCH WEAKER LATELY, PER PT'S HE HAS DECLINED SINCE LAST Tuesday06/23/20, PER PT HE HAS A VNA, OT/PT THROUGH [facility] AN USES A WHEELED WALKER AT HOME,PT'S ASSISTS W ADL'S, PT REPORTS HAVING R LEG PAIN SINCE A FALL PERVIOUS TO LAST ADMISSION. HCP-CAROL PINA () CELL [phone] ALTERNATE HERNAN EDGAR (DAUGHTER) [phone] PAIN MANAGEMENT FOR LEG PAIN- [facility] PAIN MANAGEMENT PULMONOLOGY- DR VERONICA EMANUEL CM SPOKE WITH WHO WAS CONCERNED ABOUT PT'S MOBILITY AND NEEDING A HOSPITAL BED. REPORTS PT CAN WALK TO THE BR ONCE A DAY AND THEN DOES NOT HAVE THE ENERGY TO WALK ANYMORE SO HE USES HIS URINAL AND HAS BEEN SLEEPING IN A RECLINER FOR THE LAST 6MOS, [facility]IF[facility] GIVEN INFO ON MEDICAL SUPPLY COMPANIES AND SPECIFICALLY [facility] DUE TO THEM ACCEPTING MEDICARE INSURANCE FOR PT'S WITH SPECIFIC DIAGNOSES SUCH COPD WHICH PT HAS. PT'S INSTRUCTED ON PROCESS AND REPORTS SHE WILL CALL DR EMANUEL'S OFFICE DUE TO NEED FOR DETAILED OUPATIENT NOTES, SCRIPT AND DOCUMENTATION OF NEED.
[2020-06-30] MEDS: Insulin Lispro 100 UNIT/ML 3 ML VIAL SUBCUT (11:59)
[2020-06-30] MEDS: Milk of Magnesia 30 ML ORAL.SUSP PO (12:03)
[2020-06-30 12:05] LABS: Glucose, Whole Blood 157 mg/dL (60-115)
--- NOTE | 2020-06-30 12:40 | HO.PM.IMPN ---
Subjective Subjective Date of Service: 07/01/20 Interval History: Patient complaining of generalized weakness, shortness of breath with movement, no other acute issues overnight. General generalized weakness, no headache, no dizziness no fever chills. CVS no chest pain, no palpitation. Respiratory no cough, no sputum production, no respiratory distress. Gastrointestinal no nausea , no vomiting, no abdominal pain Physical Exam Vital Signs: Vital Signs: Last Vital Signs Temp 96.8 F 06/30/20 11:42 Pulse 84 06/30/20 11:46 Resp 20 06/30/20 11:42 BP 165/77 H 06/30/20 11:42 Pulse Ox 98 06/30/20 11:42 Body Mass Index 26.6 Const: Other: General patient resting comfortably in no resp. distress. Face edematous, puffy Neck is supple no JVD. CVS regular rate rhythm, Respiratory lungs diminished breath sound, clear to auscultation, no respiratory distress Gastrointestinal abdomen soft, nontender, bowel sounds audible, no no guarding , no rigidity. Extremities no clubbing cyanosis, pitting edema. Neuro is speech clear, normal sensation,strength bilateral lower extremity improved since yesterday. Skin no rash Objective Data Current Medications Generic Name Dose Route Start Last Admin Trade Name Freq PRN Reason Stop Dose Admin Acetaminophen 650 mg 06/28/20 03:29 Acetaminophen 325 Mg Tablet PO Q6H PRN Pain, Mild (Pain Scale 1-3) Hydrocodone Bitart/Acetaminophen 1 tab 06/28/20 03:29 Hydrocodone Bit/Acetam 5/325 Tablet PO BID PRN Pain Albuterol Sulfate 2.5 mg 06/28/20 03:29 Albuterol Sulfate (0.083%) 2.5 Mg/3 Ml Vial.Neb INHALE Q2H PRN Shortness of Breath/Wheezing Albuterol/Ipratropium 0.5 ml 06/28/20 04:00 06/30/20 11:46 Albuterol/Iprat 2.5/0.5mg 3 Ml Ampul.Neb INHALE 0.5 ml RQ4H MARIAM Administration Alprazolam 0.5 mg 06/30/20 12:39 Alprazolam 0.5 Mg Tablet PO BID PRN Anxiety Atorvastatin Calcium 20 mg 06/28/20 09:00 06/30/20 09:13 Atorvastatin Calcium 20 Mg Tablet PO 20 mg DAILY MARIAM Administration Azithromycin 500 mg 06/28/20 03:30 06/30/20 04:31 Azithromycin 500 Mg Tablet PO 500 mg Q24H MARIAM Administration Diltiazem HCl 180 mg 06/28/20 09:00 06/30/20 09:12 Diltiazem Hcl Cd 180 Mg Cap.Er.24h PO 180 mg BID MARIAM Administration Protocol Enoxaparin Sodium 40 mg 06/28/20 03:30 06/30/20 04:31 Enoxaparin Sodium 40 Mg/0.4 Ml Syringe SUBCUT 40 mg Q24H MARIAM Administration Fluticasone Propionate 1 spray 06/28/20 09:00 06/30/20 09:15 Fluticasone Propionate Nasal 16 Gm Miracle NOSTRIL-B 1 spray DAILY MARIAM Administration Furosemide 20 mg 06/28/20 09:00 06/30/20 09:12 Furosemide 20 Mg Tablet PO 20 mg Q48H MARIAM Administration Protocol Insulin Glargine 100 unit 06/28/20 09:00 06/30/20 09:13 Insulin Glargine,Hum.Rec.Anlog 100 Unit/Ml 10 Ml Vial SUBCUT 100 unit DAILY MARIAM Administration Insulin Human Lispro 0 unit 06/28/20 07:30 06/30/20 11:59 Insulin Lispro 100 Unit/Ml 3 Ml Vial SUBCUT 2 unit QIDACHS MARIAM Administration Protocol Losartan Potassium 50 mg 06/28/20 09:00 06/30/20 09:12 Losartan Potassium 50 Mg Tablet PO 50 mg DAILY MARIAM Administration Protocol Magnesium Hydroxide 30 ml 06/28/20 03:29 06/30/20 12:03 Milk Of Magnesia 30 Ml Oral.Susp PO 30 ml DAILY PRN Administration Constipation Methylprednisolone Sodium Succinate 40 mg 06/28/20 09:00 06/30/20 09:11 Methylprednisolone Sod Succ/Pf 40 Mg/Ml Vial IVPUSH 40 mg DAILY MARIAM Administration Montelukast Sodium 10 mg 06/28/20 09:00 06/30/20 09:12 Montelukast Sodium 10 Mg Tablet PO 10 mg DAILY MARIAM Administration Omeprazole 20 mg 06/28/20 06:30 06/30/20 06:22 Omeprazole 20 Mg Capsule.Dr PO 20 mg DAILY@0630 MARIAM Administration Oxycodone HCl 5 mg 06/28/20 03:29 Oxycodone Hcl Immed Release 5 Mg Tablet PO DAILY PRN pain Sodium Chloride 3 ml 06/28/20 08:00 06/30/20 09:11 0.9 % Sodium Chloride Flush 3 Ml Syringe IVFLUSH 3 ml QSHIFT MARIAM Administration Sucralfate 1 gm 06/28/20 09:00 06/30/20 09:12 Sucralfate 1 Gm Tablet PO 1 gm BID MARIAM Administration Tizanidine HCl 4 mg 06/28/20 09:00 06/30/20 09:13 Tizanidine Hcl 4 Mg Tablet PO 4 mg TID MARIAM Administration Labs CBC & Chem 7: 06/28/20 01:17 06/29/20 06:36 Microbiology Microbiology Results: Microbiology 06/28/20 01:17 Blood - Venous Blood Culture - Preliminary No growth after 48 hours. 06/28/20 01:17 Blood - Venous Blood Culture - Preliminary No growth after 48 hours. Assessment and Plan (1) Acute respiratory failure with hypoxia: Problem details: This gentleman has an acute exacerbation of his respiratory problems, but there is no evidence of any acute infection at this time. He has chronic leukocytosis probably related to steroids. The new finding is presence of hypoxemia and with the use of oxygen supplementation he seems to be better. 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 Seen by Physical therapy they are recommending short-term rehab due to impaired sitting and standing balance decreased activity tolerance and impaired bed mobility Chronic leukocytosis Likely related to chronic prednisone usage Chronic normocytic anemia with mild iron deficiency and chronic kidney disease being followed by Hematology History CAD Continue Cardizem, atorvastatin and Lasix Diabetes type 2 Continue Lantus 100 units daily,SSI and diabetic diet DVT PPX On Lovenox hematocrit dropping will change to compression boots
[2020-06-30] MEDS: ALPRAZolam 0.5 MG TABLET PO (12:55)
--- NOTE | 2020-06-30 15:40 | PC.NURSE ---
P_IV not intact found in bed I-area cleansed ,sterile drsg applied E-will monitor
[2020-06-30 16:24] LABS: Glucose, Whole Blood 75 mg/dL (60-115)
[2020-06-30 20:59] LABS: Glucose, Whole Blood 64 mg/dL (60-115)
[2020-06-30 20:59] LABS: Glucose, Whole Blood 113 mg/dL (60-115)
[2020-07-01] VITALS (9 sets, daily range): BP systolic 126–155; BP diastolic 64–76; PULSE 69–82; RESP 18–19; TEMP 36.6–37; O2SAT 96–99
[2020-07-01] MEDS: Azithromycin 500 MG TABLET PO (03:02)
[2020-07-01] MEDS: ALPRAZolam 0.5 MG TABLET PO (03:05)
[2020-07-01] MEDS: Albuterol/Iprat 2.5/0.5MG 3 ML AMPUL.NEB 0.5 ML INHALE ×2 (04:48→07:19)
[2020-07-01] MEDS: Omeprazole 20 MG CAPSULE.DR PO (05:35)
[2020-07-01] MEDS: Milk of Magnesia 30 ML ORAL.SUSP PO (05:35)
[2020-07-01 08:14] LABS: Glucose, Whole Blood 49 mg/dL (60-115)
[2020-07-01 08:26] LABS: Glucose, Whole Blood 91 mg/dL (60-115)
[2020-07-01] MEDS: dilTIAZem HCL CD 180 MG CAP.ER.24H PO ×2 (08:33→21:21)
[2020-07-01] MEDS: Sucralfate 1 GM TABLET PO ×2 (08:33→21:20)
[2020-07-01] MEDS: TiZANidine HCL 4 MG TABLET PO ×3 (08:33→21:21)
[2020-07-01] MEDS: Montelukast Sodium 10 MG TABLET PO (08:33)
[2020-07-01] MEDS: Losartan Potassium 50 MG TABLET PO (08:33)
[2020-07-01] MEDS: predniSONE 10 MG TABLET PO (08:33)
[2020-07-01] MEDS: 0.9 % Sodium Chloride Flush 3 ML SYRINGE IVFLUSH ×2 (08:33→15:08)
[2020-07-01] MEDS: Atorvastatin Calcium 20 MG TABLET PO (08:33)
[2020-07-01] MEDS: Fluticasone Propionate Nasal 16 GM SPRAY 1 SPRAY NOSTRIL-B (08:37)
--- NOTE | 2020-07-01 08:41 | P.PNPL_ITS ---
Subjective Subjective Date of Service: 07/01/20 Principal diagnosis: Exacerbation of bronchial asthma/COPD Interval history: This note is of pulmonary consultation. 79 years old gentleman is followed by me for the past several years for his the chronic respiratory problems. He does have history of bronchial asthma/COPD, predominantly bronchial asthma because in between his acute exacerbations his pulmonary function is almost near normal. He has history of very frequent acute exacerbations., and has been dependent on oral steroids as well as small does of inhaled steroids. During the previous admissions he has had to evidence of by lateral basilar infections and during 1 admission it was proven to be secondary to MRSA infection. This gentleman has multiple comorbidities, and lately he has been very deconditioned, especially due to weakness of his lower extremities and inability to stand and walk. He has been mostly homebound, and getting home physical therapy as well as visits by the visiting nurses. Now he comes because of increased cough congested feeling and shortness of breath for the last few days, without fever or chills or chest pain. He was started on prednisone 40 mg a day as outpatient a few days ago, but in spite of that his respiratory status worsened. He feels congested, he does have cough but not able to expectorates. He also has mild to moderate nasal congestion with postnasal discharge, Contributing to his cough . His major problem however is the marked generalized weakness inability to stand and walk, which is not getting better. He has a long list of comorbidities including: Chronic anxiety with tendency to Hap panic attacks. Chronic allergic rhinitis. Bronchial asthma/COPD. Coronary artery disease. GERD symptoms, Diabetes mellitus, with development of peripheral neuropathy. Chronic kidney disease. Polymyalgia rheumatica Lately he has developed to anemia considered to be due to chronic disease. Patient has been a nonsmoker. Objective Data Labs CBC & Chem 7: 06/28/20 01:17 06/29/20 06:36 Labs: Laboratory Results - last 24 hr 06/30/20 06/30/20 06/30/20 08:08 11:41 16:20 POC Glucose 157 H 75 Total Creatine Kinase 23 L C-Reactive Protein 0.40 06/30/20 06/30/20 07/01/20 20:27 20:54 08:04 POC Glucose 64 113 49 L* Total Creatine Kinase C-Reactive Protein 07/01/20 08:22 POC Glucose 91 Total Creatine Kinase C-Reactive Protein Microbiology Microbiology Results: Microbiology 06/28/20 01:17 Blood - Venous Blood Culture - Preliminary No growth after 48 hours. 06/28/20 01:17 Blood - Venous Blood Culture - Preliminary No growth after 48 hours. Review of Systems Constitutional: Reports fatigue and Reports weakness Eyes: Reports dry eyes Reports nasal congestion and Reports nasal discharge Cardiovascular: Reports dyspnea and Reports dyspnea on exertion Respiratory: Reports cough, Reports dyspnea and Reports dyspnea on exertion Gastrointestinal: Reports heartburn Musculoskeletal: Reports abnormal gait, Reports back pain and Reports muscle weakness Reports abnormal gait and Reports weakness Psychiatric: Reports anxiety Endocrine: Reports fatigue Physical Exam Vital Signs: Vital Signs: Last Vital Signs Temp 98.6 F 07/01/20 08:05 Pulse 69 07/01/20 08:33 Resp 18 07/01/20 08:05 BP 140/74 H 07/01/20 08:33 Pulse Ox 98 07/01/20 08:05 Body Mass Index 26.6 Const: General: comfortable, no acute distress, alert and awake; No healthy appearing (chronically sick,) Orientation/consciousness: patient oriented x3 HENMT: Head: Yes normal to inspection General nose exam: No nasal polyps present and No nasal discharge present Face and sinus: Yes sinuses nontender and Yes other (mild nasal congestion ) Mouth: oropharynx normal Throat: Yes posterior oropharynx normal and Yes other (No thrush ) Eyes: General: appearance normal, both eyes and all related structures Neck: Neck: Yes normal visual inspection, Yes no lymphadenopathy, Yes trachea midline and Yes no JVD Thyroid: Thyroid normal Chest: Chest palpation & inspection: normal inspection of the chest Resp: Auscultation: no crackles, no rhonchi, no wheezes and diminished lung sounds Cardio: Palpation: normal PMI Rate: regular rate Rhythm: regular rhythm Heart sounds: no gallops and no murmurs GI: Palpation (GI): Soft to palpation, nontender, No hepatosplenomegaly present and no masses Auscultation: normal bowel sounds Back/Spine/Pelvis: Thoracic/Lumbar Spine: thoracic and lumbar spine normal to inspection Skin: General skin exam: no rashes or lesions noted Neuro: General: patient oriented x3 and No gait normal (not able to walk .) Cranial nerves: Yes CN's II-XII intact bilaterally Extrem: General: Yes normal to inspection, Yes no calf tenderness, Yes edema (trace of edema around the ankles.) and Yes venous stasis dermatitis Psych: Appearance: grossly normal Speech and movement: Normal speech and movement present Assessment and Plan Assessment and plan (1) Acute respiratory failure with hypoxia: Problem details: This gentleman has an acute exacerbation of his respiratory problems, but there is no evidence of any acute infection at this time. He has chronic leukocytosis probably related to steroids. The new finding is presence of hypoxemia and with the use of oxygen suppleme ntation he seems to be better. Status: Acute (2) Physical deconditioning: Problem details: Physical deconditioning is due to combination of multi factors and almost multi organ type of failure, associated with moderate anemia. Status: Acute (3) Acute exacerbation of chronic obstructive pulmonary disease: Problem details: He has some worsening of his chronic respiratory symptoms but as noted above does not seem to have any acute respiratory infection. Patient is dependent upon steroids for many years. We have discussed pros and cons. Try to keep him on the lowest possible does but sometime his need increases due to associated symptoms of backache considered to be due to polymyalgia rheumatic. This time he is getting better with IV Solu-Medrol and hopefully we can convert to oral prednisone with a tapering does over the next week Status: Acute (4) senior care systemic steroid user: Problem details: As noted above under COPD. It should be noted that the patient has anxiety with panic syndrome and off and demands to up his steroid dose. He has been fully apprised of risks of long-term steroid use but for quality of life he has opted to use oral prednisone in spite of expected side effects Status: Acute (5) PMR (polymyalgia rheumatica): Status: Acute (6) GERD (gastroesophageal reflux disease): Status: Acute (7) Hypertension: Status: Acute (8) Anxiety: Problem details: He does have chronic anxiety with the history of post traumatic stress disorder. It is easily controlled with small doses of alprazolam Status: Acute (9) Coronary artery disease: Problem details: CABG Dr. Diaz 2005, echo normal left ventricular October 2018 Status: Acute (10) Allergic rhinitis: Problem details: CONTINUE FLONASE 2 SPRAY EACH NOSTRIL DAILY, AND SINGULAIR 10 MG DAILY Status: Acute (11) Anemia: Problem details: IT IS SEC TO ANEMIA OF CHRONIC DISEASE , AND ALSO POSSIBLE LOW GRADE GI BLEEDS . CONT. TO G U WITH HEMATOLOGY . Status: Chronic (12) Bronchitis: Problem details: PATIENT HAS THE RECURRENT BOUTS OF ACUTE BRONCHITIS, MOSTLY INFLAMMATORY. AT PRESENT HIS AIRWAYS SEEMED TO BE QUITE CLEAR. NO NEED OF ANY ANTIBIOTICS AT THIS TIME. Status: Acute (13) COPD (chronic obstructive pulmonary disease): Problem details: PULMONARY STATUS IS STABLE . CONTINUE THE CURRENT REGIMEN, INCLUDING PREDNISONE 5 MG DAILY ADVAIR 250-50 ONE INH BID DUONEB UDs Q 6 HRS PRN W/A PROAIR 2 PUFFS Q 4-6 HRS PRN ( FOR OUTDOORS ) NYSTATIN SWISHES BID Status: Acute Time Spent With Patient Time: Total time spent is greater than 50% in coordination of care (as documented) at patient's floor/unit and/or counseling patient: Time with patient: 25 - 35 minutes
[2020-07-01 09:39] LABS: Glucose, Whole Blood 141 mg/dL (60-115)
[2020-07-01] MEDS: Insulin Lispro 100 UNIT/ML 3 ML VIAL SUBCUT (11:49)
[2020-07-01 12:08] LABS: Glucose, Whole Blood 244 mg/dL (60-115)
--- NOTE | 2020-07-01 12:13 | MHC.CM.PN ---
Addendum entered by Ayana Murillo RN 07/01/20 16:16: CM CONTACTED [facility] REGARDING PT AND THEY WILL REVIEW PT IN AM. Addendum entered by Ayana Murillo RN 07/01/20 16:15: PT CONTACTED Original Note: CM RECEIVED CALL FROM PT'S DAUGHTER/HCP HERNAN WHO HAS CONCERNS REGARDING PT'S 'S ABILITY TO CARE FOR HIM AT HOME AND PT REFUSING SHORT TERM REHAB. PER DAUGHTER HER AND ANOTHER MALE HAD TO LIFT PT OFF TOILET PRIOR TO HOSPITAL STAY, DAUGHTER DID ASK ABOUT SERVICES AVAILABLE AND PROCESS REGARDING HOSPITAL BED. PT'S DAUGHTER WILL ARRANGE FOR CONFERENCE CALL BETWEEEN PT, AND HERSELF AND ASKED CM TO SIT IN [employer] [place], CM AGREEABLE AND WILL WAIT FOR CALL FROM DAUGHTER WITH TIME. CM TO REQUEST BINDER [facility] THROUGH [facility] WHICH PT IS ACTIVE IN, CM WILL ALSO CONTACT [facility] WELL. CM RECEIVED CALL BACK FROM DAUGHTER WHO REPORTS PT HAS AGREED TO SHORT TERM REHAB, PER DAUGHTER CM TO ACCEPT OFFERED BED AT [facility].
[2020-07-01] MEDS: Albuterol Sulfate (0.083%) 2.5 MG/3 ML VIAL.NEB INHALE ×2 (12:37→23:44)
[2020-07-01] MEDS: Lactulose 20 GM/30 ML SOLUTION 15 GM PO (12:53)
--- NOTE | 2020-07-01 12:56 | MHC.CM.PN ---
CM RESCHEDULED PT'S BONE DENSITY TEST THAT HAD BEEN CANCELLED BY DAUGHTER DUE TO TRANSPORTATION ISSUES, CM SPOKE WITH DAUGHTER ABOUT SNF ARRANGING FOR TRANSPORTATION, APPT RESCHEDULED FOR 07/08/20 AT 2PM, DAUGHTER HERNAN NOTIFIED.
--- NOTE | 2020-07-01 14:22 | MHC.CM.PN ---
CM UPDATED [facility] OF PT'S DISPOSITION AND REQUESTED CASE MANAGEMENT/ [facility] FOR PT AND FAMILY. PER [facility] CONTACT THEY WILL REQUEST SOCIAL WORK BE ADDED WHEN PT IS READY TO RETURN HOME FROM STR.
[2020-07-01] MEDS: Albuterol/Iprat 2.5/0.5MG 3 ML AMPUL.NEB INHALE ×3 (15:20→20:40)
--- NOTE | 2020-07-01 15:32 | P.PNIM_ITS ---
Subjective Subjective Date of Service: 07/01/20 Interval History: Patient somnolent this morning likely due to using Xanax at night also noted to have low blood sugar, patient feels his breathing has significantly improved still complaining of weakness and wants to go home with physical therapy. Review of Systems General generalized weakness, no headache, no dizziness, no fever chills. CVS no chest pain, no palpitation. Respiratory no cough, no sputum production no respiratory distress. Gastrointestinal no nausea, no vomiting, no abdominal pain Physical Exam Vital Signs: Vital Signs: Last Vital Signs Temp 98.6 F 07/01/20 08:05 Pulse 69 07/01/20 08:58 Resp 18 07/01/20 08:05 BP 140/74 H 07/01/20 08:58 Pulse Ox 98 07/01/20 08:05 Body Mass Index 26.6 Const: Other: General patient resting comfortably in no resp. distress. Face edematous, puffy Neck is supple no JVD. CVS regular rate rhythm, Respiratory lungs diminished breath sound, clear to auscultation, no respiratory distress Gastrointestinal abdomen soft, nontender, bowel sounds audible, no no guarding , no rigidity. Extremities no clubbing cyanosis, pitting edema. Neuro is speech clear, normal sensation,strength bilateral lower extremity symmetrical 4/5. Skin no rash Objective Data Current Medications Generic Name Dose Route Start Last Admin Trade Name Freq PRN Reason Stop Dose Admin Acetaminophen 650 mg 06/28/20 03:29 Acetaminophen 325 Mg Tablet PO Q6H PRN Pain, Mild (Pain Scale 1-3) Hydrocodone Bitart/Acetaminophen 1 tab 06/28/20 03:29 Hydrocodone Bit/Acetam 5/325 Tablet PO BID PRN Pain Albuterol Sulfate 2.5 mg 06/28/20 03:29 07/01/20 12:37 Albuterol Sulfate (0.083%) 2.5 Mg/3 Ml Vial.Neb INHALE 2.5 mg Q2H PRN Administration Shortness of Breath/Wheezing Albuterol/Ipratropium 3 ml 07/01/20 16:00 07/01/20 15:20 Albuterol/Iprat 2.5/0.5mg 3 Ml Ampul.Neb INHALE 3 ml RQ4H MARIAM Administration Alprazolam 0.25 mg 07/01/20 12:33 Alprazolam 0.25 Mg Tablet PO BID PRN Anxiety Atorvastatin Calcium 20 mg 06/28/20 09:00 07/01/20 08:33 Atorvastatin Calcium 20 Mg Tablet PO 20 mg DAILY [facility] Administration Azithromycin 500 mg 06/28/20 03:30 07/01/20 03:02 Azithromycin 500 Mg Tablet PO 500 mg Q24H MARIAM Administration Diltiazem HCl 180 mg 06/28/20 09:00 07/01/20 08:33 Diltiazem Hcl Cd 180 Mg Cap.Er.24h PO 180 mg BID [facility] Administration Protocol Fluticasone Propionate 1 spray 06/28/20 09:00 07/01/20 08:37 Fluticasone Propionate Nasal 16 Gm [place] NOSTRIL-B 1 spray DAILY [facility] Administration Furosemide 20 mg 06/28/20 09:00 06/30/20 09:12 Furosemide 20 Mg Tablet PO 20 mg Q48H [facility] Administration Protocol Insulin Glargine 50 unit 07/02/20 09:00 Insulin Glargine,Hum.Rec.Anlog 100 Unit/Ml 10 Ml Vial SUBCUT DAILY [facility] Insulin Human Lispro 0 unit 06/28/20 07:30 07/01/20 11:49 Insulin Lispro 100 Unit/Ml 3 Ml Vial SUBCUT 4 unit QIDACHS [facility] Administration Protocol Losartan Potassium 50 mg 06/28/20 09:00 07/01/20 08:33 Losartan Potassium 50 Mg Tablet PO 50 mg DAILY [facility] Administration Protocol Magnesium Hydroxide 30 ml 06/28/20 03:29 07/01/20 05:35 Milk Of Magnesia 30 Ml Oral.Susp PO 30 ml DAILY PRN Administration Constipation Montelukast Sodium 10 mg 06/28/20 09:00 07/01/20 08:33 Montelukast Sodium 10 Mg Tablet PO 10 mg DAILY [facility] Administration Omeprazole 20 mg 06/28/20 06:30 07/01/20 05:35 Omeprazole 20 Mg Capsule.Dr PO 20 mg DAILY@0630 [facility] Administration Oxycodone HCl 5 mg 06/28/20 03:29 Oxycodone Hcl Immed Release 5 Mg Tablet PO DAILY PRN pain Prednisone 10 mg 07/01/20 09:00 07/01/20 08:33 Prednisone 10 Mg Tablet PO 10 mg DAILY [facility] Administration Psyllium Hydrophilic Mucilloid 3.4 gm 07/02/20 09:00 Psyllium Seed 3.4 Gm Powd.Pack PO DAILY MARIAM Sodium Chloride 3 ml 06/28/20 08:00 07/01/20 15:08 0.9 % Sodium Chloride Flush 3 Ml Syringe IVFLUSH 3 ml QSHIFT MARIAM Administration Sucralfate 1 gm 06/28/20 09:00 07/01/20 08:33 Sucralfate 1 Gm Tablet PO 1 gm BID MARIAM Administration Tizanidine HCl 4 mg 06/28/20 09:00 07/01/20 15:07 Tizanidine Hcl 4 Mg Tablet PO 4 mg TID MARIAM Administration Labs CBC & Chem 7: 06/28/20 01:17 06/29/20 06:36 Microbiology Microbiology Results: Microbiology 06/28/20 01:17 Blood - Venous Blood Culture - Preliminary No growth after 48 hours. 06/28/20 01:17 Blood - Venous Blood Culture - Preliminary No growth after 48 hours. 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 Acute hypoxic respiratory failure due to COPD exacerbation Patient clinically improving with less shortness of breath patient is not on home oxygen On admission O2 sat mid 80s in the emergency room, chest x-ray showed no infiltrate, currently on 2 L with finger oximetry 98% on DuoNeb q.4, prednisone 10 mg, Singulair and Flonase Patient seen by Dr. 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 Seen by Physical therapy they are recommending short-term rehab due to impaired sitting and standing balance decreased activity tolerance and impaired bed mobility initially patient was not agreeable but later agreed to go to rehab. Chronic leukocytosis Likely related to chronic prednisone usage Chronic normocytic anemia with mild iron deficiency and chronic kidney disease being followed by Hematology recommend outpatient Oncology follow History CAD Continue Cardizem, atorvastatin and Lasix Diabetes type 2 Noted to have low blood sugar this a.m. likely due to reducing dose of steroids will decrease dose of Lantus to 50 units and continue,SSI and diabetic diet Mood disorder patient is on Xanax 0.5 mg daily which she takes in 2 divided doses will reduce dose of Xanax to 0.25 mg b.i.d. as needed DVT PPX On Lovenox hematocrit dropping will change to compression boots
[2020-07-01 16:28] LABS: Glucose, Whole Blood 89 mg/dL (60-115)
[2020-07-01 20:04] LABS: Glucose, Whole Blood 142 mg/dL (60-115)
[2020-07-01] MEDS: ALPRAZolam 0.25 MG TABLET PO (21:25)
[2020-07-02 00:08] VITALS: BP 116/62; PULSE 76; RESP 16; TEMP 36.6; O2SAT 96
[2020-07-02] MEDS: Benzonatate 100 MG CAPSULE PO (00:11)
[2020-07-02] MEDS: 0.9 % Sodium Chloride Flush 3 ML SYRINGE IVFLUSH ×2 (00:11→07:32)
[2020-07-02] MEDS: Azithromycin 500 MG TABLET PO (04:31)
[2020-07-02] MEDS: Omeprazole 20 MG CAPSULE.DR PO (06:03)
[2020-07-02 06:23] LABS: MANUAL DIFF FLAG NO
[2020-07-02 06:35] LABS: Basophils Percent Auto 0.1 % (0-2); Eosinophils Absolute Auto 0.1 X10*3/uL (0.0-0.4); Eosinophils Percent Auto 0.8 % (0-4); Hemoglobin 8.8 g/dl (14.0-18.0); Imm Gran Abs Auto 0.41 X10*3/uL (0.00-0.03); Imm Gran Pct Auto 2.5 % (0.0-0.4); Lymphocytes Absolute Auto 2.7 X10*3/uL (1.2-4.9); Lymphocytes Percent Auto 15.9 % (20-40); Mean Corpuscular HGB Conc 33.8 g/dl (31.0-36.0); Mean Corpuscular Hemoglobin 32.2 pg (27.0-33.0); Mean Corpuscular Volume 95.2 fL (80-98); Mean Platelet Volume 10.5 fL (9.4-12.4); Monocytes Absolute Auto 1.1 X10*3/uL (0.1-1.2); Monocytes Percent Auto 6.6 % (2-11); Neutrophils Absolute Auto 12.4 X10*3/uL (2.0-8.3); Neutrophils Percent Auto 74.1 % (45-73); Platelet Count 304 X10*3/uL (160-400); Red Blood Count 2.73 X10*6/uL (4.60-5.80); Red Cell Distribution Width 13.7 % (11.0-16.0); White Blood Count 16.7 X10*3/uL (4.8-10.8)
[2020-07-02 07:15] LABS: Anion Gap 15 (12-20); Blood Urea Nitrogen 45 mg/dL (9-16); Calcium 8.7 mg/dL (8.4-10.2); Carbon Dioxide 28 mmol/L (22-29); Chloride 99 mmol/L (96-108); Creatinine Clr Calc Pharmacy 58.1; Estimated Glomerular Filt Rate > 60; Glucose Random 40 mg/dL (60-115); Sodium 138 mmol/L (135-145)
[2020-07-02] MEDS: Albuterol/Iprat 2.5/0.5MG 3 ML AMPUL.NEB INHALE ×2 (07:25→11:23)
[2020-07-02] MEDS: Montelukast Sodium 10 MG TABLET PO (07:30)
[2020-07-02] MEDS: dilTIAZem HCL CD 180 MG CAP.ER.24H PO (07:30)
[2020-07-02] MEDS: Losartan Potassium 50 MG TABLET PO (07:31)
[2020-07-02] MEDS: TiZANidine HCL 4 MG TABLET PO (07:31)
[2020-07-02] MEDS: Furosemide 20 MG TABLET PO (07:31)
[2020-07-02] MEDS: Atorvastatin Calcium 20 MG TABLET PO (07:31)
[2020-07-02 07:32] VITALS: PULSE 74; O2SAT 98
[2020-07-02] MEDS: Sucralfate 1 GM TABLET PO (07:33)
[2020-07-02] MEDS: Fluticasone Propionate Nasal 16 GM SPRAY 1 SPRAY NOSTRIL-B (07:33)
[2020-07-02] MEDS: predniSONE 10 MG TABLET PO (07:33)
[2020-07-02 07:34] LABS: Glucose, Whole Blood 50 mg/dL (60-115)
[2020-07-02 08:00] VITALS: BP 126/59; PULSE 74; RESP 18; TEMP 36.6; O2SAT 98
[2020-07-02 08:35] LABS: Glucose, Whole Blood 161 mg/dL (60-115)
--- NOTE | 2020-07-02 08:40 | MHC.CM.PN ---
CM RECEIVED CALL FROM PT'S WHO WANTED TO KNOW WHERE TO DROP OFF BELONGINGS TO PT, DIRECTIONS GIVE. 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
--- NOTE | 2020-07-02 09:24 | P.PNPL_ITS ---
Subjective Subjective Date of Service: 07/02/20 Principal diagnosis: Exacerbation of bronchial asthma/COPD Interval history: Mr Kim is feeling better today, during the night he had intermittent bouts of cough with minimal expectoration. Has soon as he can expectorates a small goblet of mucus he feels better. He has had no fever chills or chest pain. He still requires O2 2 L/minute. He is the on prednisone 10 mg a day which will be reduced to 5 mg a day for his maintenance dose. The prednisone is being given to him mainly for his PMR. His main problem is continued by weakness of lower extremities and inability to stand or ambulate. This is due to combination of peripheral neuropathy/steroid related myopathy . Respiratory carlson his main problem is reactive airways/bronchial asthma with frequent flare ups. He has lot of hypersensitivity to environmental agents. Objective Data Labs CBC & Chem 7: 07/02/20 05:59 07/02/20 05:59 Labs: Laboratory Results - last 24 hr 07/01/20 07/01/20 07/01/20 09:28 11:08 16:24 WBC RBC Hgb Hct MCV MCH MCHC RDW Plt Count MPV Immature Gran % (Auto) Neut % (Auto) Lymph % (Auto) [place] % (Auto) Eos % (Auto) Baso % (Auto) Lymph # (Auto) [place] # (Auto) Eos # (Auto) Baso # (Auto) Abs Immat Gran (auto) Absolute Neuts (auto) Absolute Nucleated RBC Nucleated RBC % (auto) Sodium Potassium Chloride Carbon Dioxide Anion Gap BUN Creatinine Estim Creat Clear Calc Estimated GFR POC Glucose 141 H 244 H 89 Random Glucose Calcium 07/01/20 07/02/20 07/02/20 20:00 05:59 05:59 WBC 16.7 H RBC 2.73 L Hgb 8.8 L Hct 26.0 L MCV 95.2 MCH 32.2 MCHC 33.8 RDW 13.7 Plt Count 304 MPV 10.5 Immature Gran % (Auto) 2.5 H Neut % (Auto) 74.1 H Lymph % (Auto) 15.9 L [place] % (Auto) 6.6 Eos % (Auto) 0.8 Baso % (Auto) 0.1 Lymph # (Auto) 2.7 [place] # (Auto) 1.1 Eos # (Auto) 0.1 Baso # (Auto) 0.0 Abs Immat Gran (auto) 0.41 H Absolute Neuts (auto) 12.4 H Absolute Nucleated RBC 0.000 Nucleated RBC % (auto) 0.0 Sodium 138 Potassium 4.0 Chloride 99 Carbon Dioxide 28 Anion Gap 15 BUN 45 H Creatinine 0.98 Estim Creat Clear Calc 58.1 Estimated GFR > 60 POC Glucose 142 H Random Glucose 40 L* Calcium 8.7 D 07/02/20 07/02/20 07:22 08:31 WBC RBC Hgb Hct MCV MCH MCHC RDW Plt Count MPV Immature Gran % (Auto) Neut % (Auto) Lymph % (Auto) [place] % (Auto) Eos % (Auto) Baso % (Auto) Lymph # (Auto) [place] # (Auto) Eos # (Auto) Baso # (Auto) Abs Immat Gran (auto) Absolute Neuts (auto) Absolute Nucleated RBC Nucleated RBC % (auto) Sodium Potassium Chloride Carbon Dioxide Anion Gap BUN Creatinine Estim Creat Clear Calc Estimated GFR POC Glucose 50 L* 161 H Random Glucose Calcium Microbiology Microbiology Results: Microbiology 06/28/20 01:17 Blood - Venous Blood Culture - Preliminary No growth after 48 hours. 06/28/20 01:17 Blood - Venous Blood Culture - Preliminary No growth after 48 hours. Review of Systems Constitutional: Reports weakness Musculoskeletal: Reports abnormal gait Reports abnormal gait and Reports weakness Physical Exam Vital Signs: Vital Signs: Last Vital Signs Temp 97.9 F 07/02/20 08:00 Pulse 74 07/02/20 08:00 Resp 18 07/02/20 08:00 BP 126/59 L 07/02/20 08:00 Pulse Ox 98 07/02/20 08:00 Body Mass Index 26.6 Const: General: comfortable, no acute distress, alert and awake; No healthy appearing (chronically sick and weak ) Orientation/consciousness: patient oriented x3 HENMT: Head: Yes normal to inspection General nose exam: No nasal polyps present, No nasal discharge present and Other nasal findings present (mild nasal congestion , chronic ) Face and sinus: Yes sinuses nontender Mouth: oropharynx normal (no obvious thrush ) Throat: Yes posterior oropharynx normal Eyes: General: appearance normal, both eyes and all related structures Neck: Neck: Yes normal visual inspection, Yes no lymphadenopathy, Yes trachea midline and Yes no JVD Thyroid: Thyroid normal Chest: Chest palpation & inspection: normal inspection of the chest and normal palpation of entire chest wall Resp: Auscultation: clear to auscultation bilaterally, no crackles, no wheezes and diminished lung sounds Cardio: Palpation: normal PMI Rate: regular rate Rhythm: regular rhythm Heart sounds: no gallops and no murmurs GI: Palpation (GI): Soft to palpation, nontender, No hepatosplenomegaly present and no masses Auscultation: normal bowel sounds Back/Spine/Pelvis: Thoracic/Lumbar Spine: thoracic and lumbar spine normal to inspection Skin: General skin exam: no rashes or lesions noted Neuro: General: patient oriented x3 and other (marked weakness of both legs .) Cranial nerves: Yes CN's II-XII intact bilaterally Extrem: General: Yes normal to inspection, Yes no calf tenderness, Yes edema (minimal edema around ankles ) and No venous stasis dermatitis Psych: Appearance: grossly normal Speech and movement: Normal speech and movement present Assessment and Plan Assessment and plan (1) Acute respiratory failure with hypoxia: Problem details: Improving slowly, but he still requires oxygen supplementation 2 L/minute. Status: Acute (2) Acute exacerbation of chronic obstructive pulmonary disease: Problem details: There was no evidence of pneumonia, he is prone to recurrent bouts of b ronchitis. He has the severe reactive airways disorder, at present he has improved. He requires small dose of prednisone on a long-term basis. He also needs continued use of Advair 250-50 b.i.d. and DuoNeb updrafts q.i.d.. He is prone to have with thrush of the upper airways and benefits from use of nystatin swish is twice a day. Status: Acute (3) PMR (polymyalgia rheumatica): Problem details: He is being followed by rheumatology. He needs small dose of prednisone like 5 mg a day for maintenance therapy. 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 It is easily controlled with small doses of alprazolam Status: Acute (6) Allergic rhinitis: Problem details: CONTINUE FLONASE 2 SPRAY EACH NOSTRIL DAILY, AND SINGULAIR 10 MG DAILY Status: Acute (7) Bronchitis: Problem details: PATIENT HAS THE RECURRENT BOUTS OF ACUTE BRONCHITIS, MOSTLY INFLAMMATORY. AT PRESENT HIS AIRWAYS SEEMED TO BE QUITE CLEAR. NO NEED OF ANY ANTIBIOTICS AT THIS TIME. Status: Acute Time Spent With Patient Time: Total time spent is greater than 50% in coordination of care (as documented) at patient's floor/unit and/or counseling patient: Time with patient: 15 - 24 minutes
--- NOTE | 2020-07-02 09:39 | PM.PNPUL ---
Subjective Subjective Date of Service: 07/02/20 Principal diagnosis: Exacerbation of bronchial asthma/COPD Objective Data Labs CBC & Chem 7: 07/02/20 05:59 07/02/20 05:59 Labs: Laboratory Results - last 24 hr 07/01/20 07/01/20 07/01/20 09:28 11:08 16:24 WBC RBC Hgb Hct MCV MCH MCHC RDW Plt Count MPV Immature Gran % (Auto) Neut % (Auto) Lymph % (Auto) [place] % (Auto) Eos % (Auto) Baso % (Auto) Lymph # (Auto) [place] # (Auto) Eos # (Auto) Baso # (Auto) Abs Immat Gran (auto) Absolute Neuts (auto) Absolute Nucleated RBC Nucleated RBC % (auto) Sodium Potassium Chloride Carbon Dioxide Anion Gap BUN Creatinine Estim Creat Clear Calc Estimated GFR POC Glucose 141 H 244 H 89 Random Glucose Calcium 07/01/20 07/02/20 07/02/20 20:00 05:59 05:59 WBC 16.7 H RBC 2.73 L Hgb 8.8 L Hct 26.0 L MCV 95.2 MCH 32.2 MCHC 33.8 RDW 13.7 Plt Count 304 MPV 10.5 Immature Gran % (Auto) 2.5 H Neut % (Auto) 74.1 H Lymph % (Auto) 15.9 L [place] % (Auto) 6.6 Eos % (Auto) 0.8 Baso % (Auto) 0.1 Lymph # (Auto) 2.7 [place] # (Auto) 1.1 Eos # (Auto) 0.1 Baso # (Auto) 0.0 Abs Immat Gran (auto) 0.41 H Absolute Neuts (auto) 12.4 H Absolute Nucleated RBC 0.000 Nucleated RBC % (auto) 0.0 Sodium 138 Potassium 4.0 Chloride 99 Carbon Dioxide 28 Anion Gap 15 BUN 45 H Creatinine 0.98 Estim Creat Clear Calc 58.1 Estimated GFR > 60 POC Glucose 142 H Random Glucose 40 L* Calcium 8.7 D 07/02/20 07/02/20 07:22 08:31 WBC RBC Hgb Hct MCV MCH MCHC RDW Plt Count MPV Immature Gran % (Auto) Neut % (Auto) Lymph % (Auto) [place] % (Auto) Eos % (Auto) Baso % (Auto) Lymph # (Auto) [place] # (Auto) Eos # (Auto) Baso # (Auto) Abs Immat Gran (auto) Absolute Neuts (auto) Absolute Nucleated RBC Nucleated RBC % (auto) Sodium Potassium Chloride Carbon Dioxide Anion Gap BUN Creatinine Estim Creat Clear Calc Estimated GFR POC Glucose 50 L* 161 H Random Glucose Calcium Microbiology Microbiology Results: Microbiology 06/28/20 01:17 Blood - Venous Blood Culture - Preliminary No growth after 48 hours. 06/28/20 01:17 Blood - Venous Blood Culture - Preliminary No growth after 48 hours. Review of Systems Constitutional: Reports weakness Musculoskeletal: Reports abnormal gait Reports abnormal gait and Reports weakness Physical Exam Vital Signs: Vital Signs: Last Vital Signs Temp 97.9 F 07/02/20 08:00 Pulse 74 07/02/20 08:00 Resp 18 07/02/20 08:00 BP 126/59 L 07/02/20 08:00 Pulse Ox 98 07/02/20 08:00 Body Mass Index 26.6 Assessment and Plan Time Spent With Patient Time: Total time spent is greater than 50% in coordination of care (as documented) at patient's floor/unit and/or counseling patient:
--- NOTE | 2020-07-02 09:40 | PM.EVENT ---
Event Note Date of Service: 07/02/20 Event Note: SPECIAL NOTE : THIS GENTLEMAN HAS CHRONIC BRONCHIAL ASTHMA/RECURRENT BRONCHITIS, AND HAS CHRONIC OBSTRUCTIVE PULMONARY DISEASE. HE IS STEROIDS DEPENDENT OVER THE LONG.. HE HAS MULTIPLE COMORBIDITIES SPECIALLY DIABETES MELLITUS AND PERIPHERAL NEUROPATHY. HE ALSO HAS POLYMYALGIA RHEUMATICA REQUIRING LONG-TERM USE OF STEROIDS. HE HAS DEVELOPED STEROIDS RELATED MYOPATHY. DUE TO ALL THE ABOVE FACTORS HIS AMBULATION AND MOBILITY IS SIGNIFICANTLY IMPAIRED. FOR HIS CHRONIC OBSTRUCTIVE PULMONARY DISEASE AND NEED TO CLEAR HIS AIRWAYS FREQUENTLY, HE NEEDS TO SLEEP IN A PROPPED UP POSITION, HE ALSO NEEDS FREQUENT CHANGES IN HIS POSITIONS. CURRENTLY HE NEEDS ACUTE REHABILITATION PROGRAM, BUT SUBSEQUENTLY HE WOULD BENEFIT FROM HAVING A HOSPITAL BED AT HIS HOME, FOR HIS COMFORT AND FREQUENT CHANGES IN POSITION.
--- NOTE | 2020-07-02 11:26 | PM.DS ---
DS: Providers Provider Date of Service: 07/02/20 Date of admission: 06/28/20 03:29 Primary care physician: Unknown Physician Consults: 06/30/20 07:52 Consult to Pulmonology Routine Consulting Provider: Chente Holt Reason for consultation: copd steroid dependent Has provider been notified: No DS: Diagnosis Discharge Diagnosis (1) Acute respiratory failure with hypoxia: Status: Acute Problem details: Improving slowly, but he still requires oxygen supplementation 2 L/minute. (2) Acute exacerbation of chronic obstructive pulmonary disease: Status: Acute Problem details: There was no evidence of pneumonia, he is prone to recurrent bouts of bronchitis. He has the severe reactive airways disorder, at present he has improved. He requires small dose of prednisone on a long-term basis. He also needs continued use of Advair 250-50 b.i.d. and DuoNeb updrafts q.i.d.. He is prone to have with thrush of the upper airways and benefits from use of nystatin swish is twice a day. (3) PMR (polymyalgia rheumatica): Status: Acute Problem details: He is being followed by rheumatology. He needs small dose of prednisone like 5 mg a day for maintenance therapy. Currently with the use of tizanidine 4 mg a day his muscle pains and aches are less (4) [facility] systemic steroid user: Status: Acute Problem details: See the above doubt (5) Anxiety: Status: Acute Problem details: He does have chronic anxiety with the history of post traumatic stress disorder. It is easily controlled with small doses of alprazolam (6) Allergic rhinitis: Status: Acute Problem details: CONTINUE FLONASE 2 SPRAY EACH NOSTRIL DAILY, AND SINGULAIR 10 MG DAILY (7) Bronchitis: Status: Acute Problem details: PATIENT HAS THE RECURRENT BOUTS OF ACUTE BRONCHITIS, MOSTLY INFLAMMATORY. AT PRESENT HIS AIRWAYS SEEMED TO BE QUITE CLEAR. NO NEED OF ANY ANTIBIOTICS AT THIS TIME. DS: Medications Discharge Medications Home Medications: Home Medications Medication Instructions Recorded Confirmed albuterol sulfate 90 mcg/actuation 90 mcg INHALATION Q6-8H PRN 03/17/20 06/27/20 aerosol inhaler blood sugar diagnostic #10 ea 03/17/20 06/27/20 ferrous sulfate 325 mg (65 mg 325 mg PO DAILY 03/17/20 06/27/20 iron) tablet,delayed release fluticasone 250 mcg-salmeterol 50 1 inh INHALATION DAILY 03/17/20 06/27/20 mcg/dose blistr powdr for inhalation fluticasone propionate 50 1 spray INTRANASAL DAILY 03/17/20 06/27/20 mcg/actuation nasal spray,suspension insulin lispro 100 unit/mL 100 sliding scale dose SUBCUT DAILY 03/17/20 06/27/20 subcutaneous solution losartan 50 mg tablet 50 mg PO DAILY 03/17/20 06/27/20 tizanidine 4 mg tablet 4 mg PO TID 03/17/20 06/27/20 hydrocodone 5 mg-acetaminophen 325 1 tab PO BID PRN 05/29/20 06/27/20 mg tablet Previous Rx's Medication Instructions Recorded nystatin 100,000 unit/mL oral 4 ml PO .4 times a day PRN 90 Days 04/18/20 suspension #180 ml pantoprazole 40 mg tablet,delayed 40 mg PO DAILY #90 tab 05/06/20 release prednisone 5 mg tablet 5 mg PO DAILY 90 Days #90 tab 05/26/20 insulin syringe-needle U-100 0.5 #4 box 05/28/20 mL 31 gauge x 5/16 atorvastatin 20 mg tablet 20 mg PO DAILY #90 tab 06/03/20 furosemide 20 mg tablet 20 mg PO Q OTHER DAY 60 Days #30 06/18/20 tab diltiazem HCl 180 mg 180 mg PO BID 90 Days #180 cap 06/23/20 capsule,extended release 24 hr sucralfate 1 gram tablet 1 g PO BID #180 tab 06/23/20 montelukast 10 mg tablet 10 mg PO DAILY #90 tab 06/25/20 alprazolam 0.25 mg PO BID PRN #14 tab 07/02/20 benzonatate 100 mg PO TID PRN #30 cap 07/02/20 guaifenesin [Mucinex] 600 mg PO BID PRN #30 tab 07/02/20 insulin glargine [Lantus U-100 12 unit SUBCUT BEDTIME #10 ml 07/02/20 Insulin] ipratropium-albuterol 3 ml INHALATION RQID #90 ml 07/02/20 psyllium husk (aspartame) 3.4 g PO DAILY #30 ea 07/02/20 [Metamucil Fiber Singles] DS: Summary Hospital Course Hospital Course: History of presenting illness Chief Complaint: Shortness of breath, wheezing, failed outpatient treatment An 79 years old male with PMH of PMR, CKD, COPD on chronic prednisone who presents to the hospital with shortness of breath and wheezing, increased weakness. The patient reports that his baseline has been deteriorating over the last few months as he became much weaker and unable to get up and walk. His COPD has been fairly controlled over that time. Three days ago he started to have difficulty breathing associated with wheezes. He discussed with Dr. Holt and started home prednisone 40 mg daily with usage of the nebulizers 4 times a day but he continued to get worse and more dyspneic with any exertion so we decided to come to the hospital after discussing with Dr. Holt. In the emergency he was found to be hypoxic on multiple occasions on room air in 80s with minimal movement which recovers to 90s when he sits still. Treated with steroids, nebulizer and magnesium with fair response admitted to the hospital for further evaluation and treatment. Hospital course 79 years old male with PMH of PMR, CKD, COPD on chronic prednisone who presents to the hospital with shortness of breath and wheezing, increased weakness. Acute hypoxic respiratory failure due to COPD exacerbation Patient clinically improving with less shortness of breath patient is not on home oxygen, currently on 2 L of oxygen, high respiratory status seems stable, continue DuoNeb qid, prednisone 5 mg, Singulair and Flonase, continue Mucinex as needed Patient seen by Dr. 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 Recently started on tizanidine. Minimize narcotics. Chronic leukocytosis Likely related to chronic prednisone usage Chronic normocytic anemia with mild iron deficiency and chronic kidney disease being followed by Hematology recommend outpatient Oncology follow History CAD Continue Cardizem, atorvastatin and Lasix being followed by Dr. Encarnacion as outpatient, cardiac status is stable Diabetes type 2 Noted to have low blood sugar therefore dose of Lantus has been reduced to 12 unit Glucophage has been discontinued continue diabetic diet and insulin sliding scale Mood disorder patient is on Xanax 0.25 mg as needed for anxiety Time Spent with Patient Time attestation: Total time spent providing and/or coordinating discharge services: Discharge coordination time: Greater than 30 minutes Physical Exam Vital Signs: Vital Signs: Last Vital Signs Temp 97.9 F 07/02/20 08:00 Pulse 74 07/02/20 08:00 Resp 18 07/02/20 08:00 BP 126/59 L 07/02/20 08:00 Pulse Ox 98 07/02/20 08:00 Body Mass Index 26.6 General patient resting comfortably in no resp. distress. Face edematous, puffy Neck is supple no JVD. CVS regular rate rhythm, Respiratory lungs diminished course breath sound, , no respiratory distress Gastrointestinal abdomen soft, nontender, bowel sounds audible, no guarding , no rigidity. Extremities no clubbing cyanosis, pitting edema. Neuro speech clear, normal sensation, mild decreased strength left lower extremity . Skin no rash DS: Data Data Completed and Pending Labs on day of discharge: Laboratory Tests 06/28/20 06/28/20 06/28/20 01:17 01:17 01:17 WBC 15.4 H RBC 2.63 L Hgb 8.5 L Hct 25.7 L MCV 97.7 MCH 32.3 MCHC 33.1 RDW 14.1 Plt Count 316 MPV 10.4 Immature Gran % (Auto) 2.4 H Neut % (Auto) 84.2 H Lymph % (Auto) 6.2 L [place] % (Auto) 6.8 Eos % (Auto) 0.3 Baso % (Auto) 0.1 Lymph # (Auto) 1.0 L [place] # (Auto) 1.1 Eos # (Auto) 0.1 Baso # (Auto) 0.0 Abs Immat Gran (auto) 0.37 H Absolute Neuts (auto) 13.0 H Absolute Nucleated RBC 0.000 Nucleated RBC % (auto) 0.0 ABG pH ABG pCO2 ABG pO2 ABG HCO3 ABG O2 Saturation ABG Base Excess Oxygen Given Sodium 140 Potassium 4.8 Chloride 104 Carbon Dioxide 25 Anion Gap 16 BUN 42 H Creatinine 1.39 Estim Creat Clear Calc 41.0 Estimated GFR 49 POC Glucose Random Glucose 137 H Lactic Acid Lactic Acid Fup @ 2Hr Lactic Acid Fup @ 4Hr Calcium 9.9 Total Creatine Kinase Troponin I High Sens C-Reactive Protein B-Natriuretic Peptide Lipase 28 Coronavirus (PCR) NEGATIVE Influenza Type A (PCR) NEGATIVE Influenza Type B (PCR) NEGATIVE RSV RNA Qual (PCR) NEGATIVE 06/28/20 06/28/20 06/28/20 01:17 01:17 01:17 WBC RBC Hgb Hct MCV MCH MCHC RDW Plt Count MPV Immature Gran % (Auto) Neut % (Auto) Lymph % (Auto) [place] % (Auto) Eos % (Auto) Baso % (Auto) Lymph # (Auto) [place] # (Auto) Eos # (Auto) Baso # (Auto) Abs Immat Gran (auto) Absolute Neuts (auto) Absolute Nucleated RBC Nucleated RBC % (auto) ABG pH ABG pCO2 ABG pO2 ABG HCO3 ABG O2 Saturation ABG Base Excess Oxygen Given Sodium Potassium Chloride Carbon Dioxide Anion Gap BUN Creatinine Estim Creat Clear Calc Estimated GFR POC Glucose Random Glucose Lactic Acid 3.3 H* Lactic Acid Fup @ 2Hr Lactic Acid Fup @ 4Hr Calcium Total Creatine Kinase Troponin I High Sens 48.9 H C-Reactive Protein B-Natriuretic Peptide 160 H Lipase Coronavirus (PCR) Influenza Type A (PCR) Influenza Type B (PCR) RSV RNA Qual (PCR) 06/28/20 06/28/20 06/28/20 04:49 04:49 04:49 WBC RBC Hgb Hct MCV MCH MCHC RDW Plt Count MPV Immature Gran % (Auto) Neut % (Auto) Lymph % (Auto) [place] % (Auto) Eos % (Auto) Baso % (Auto) Lymph # (Auto) [place] # (Auto) Eos # (Auto) Baso # (Auto) Abs Immat Gran (auto) Absolute Neuts (auto) Absolute Nucleated RBC Nucleated RBC % (auto) ABG pH ABG pCO2 ABG pO2 ABG HCO3 ABG O2 Saturation ABG Base Excess Oxygen Given Sodium Potassium Chloride Carbon Dioxide Anion Gap BUN Creatinine Estim Creat Clear Calc Estimated GFR POC Glucose 282 H Random Glucose Lactic Acid Lactic Acid Fup @ 2Hr 3.8 H* Lactic Acid Fup @ 4Hr Calcium Total Creatine Kinase Troponin I High Sens 37.0 H C-Reactive Protein B-Natriuretic Peptide Lipase Coronavirus (PCR) Influenza Type A (PCR) Influenza Type B (PCR) RSV RNA Qual (PCR) 06/28/20 06/28/20 06/28/20 08:50 12:23 14:22 WBC RBC Hgb Hct MCV MCH MCHC RDW Plt Count MPV Immature Gran % (Auto) Neut % (Auto) Lymph % (Auto) [place] % (Auto) Eos % (Auto) Baso % (Auto) Lymph # (Auto) [place] # (Auto) Eos # (Auto) Baso # (Auto) Abs Immat Gran (auto) Absolute Neuts (auto) Absolute Nucleated RBC Nucleated RBC % (auto) ABG pH ABG pCO2 ABG pO2 ABG HCO3 ABG O2 Saturation ABG Base Excess Oxygen Given Sodium Potassium Chloride Carbon Dioxide Anion Gap BUN Creatinine Estim Creat Clear Calc Estimated GFR POC Glucose 366 H* 322 H Random Glucose Lactic Acid Lactic Acid Fup @ 2Hr Lactic Acid Fup @ 4Hr 4.6 H* Calcium Total Creatine Kinase Troponin I High Sens C-Reactive Protein B-Natriuretic Peptide Lipase Coronavirus (PCR) Influenza Type A (PCR) Influenza Type B (PCR) RSV RNA Qual (PCR) 06/28/20 06/28/20 06/28/20 15:45 18:18 20:47 WBC RBC Hgb Hct MCV MCH MCHC RDW Plt Count MPV Immature Gran % (Auto) Neut % (Auto) Lymph % (Auto) [place] % (Auto) Eos % (Auto) Baso % (Auto) Lymph # (Auto) [place] # (Auto) Eos # (Auto) Baso # (Auto) Abs Immat Gran (auto) Absolute Neuts (auto) Absolute Nucleated RBC Nucleated RBC % (auto) ABG pH 7.44 ABG pCO2 35 ABG pO2 72 L ABG HCO3 23 ABG O2 Saturation 94.6 ABG Base Excess -1.0 Oxygen Given 2 L Sodium Potassium Chloride Carbon Dioxide Anion Gap BUN Creatinine Estim Creat Clear Calc Estimated GFR POC Glucose 273 H 262 H Random Glucose Lactic Acid Lactic Acid Fup @ 2Hr Lactic Acid Fup @ 4Hr Calcium Total Creatine Kinase Troponin I High Sens C-Reactive Protein B-Natriuretic Peptide Lipase Coronavirus (PCR) Influenza Type A (PCR) Influenza Type B (PCR) RSV RNA Qual (PCR) 06/28/20 06/29/20 06/29/20 22:40 06:36 12:01 WBC RBC Hgb Hct MCV MCH MCHC RDW Plt Count MPV Immature Gran % (Auto) Neut % (Auto) Lymph % (Auto) [place] % (Auto) Eos % (Auto) Baso % (Auto) Lymph # (Auto) [place] # (Auto) Eos # (Auto) Baso # (Auto) Abs Immat Gran (auto) Absolute Neuts (auto) Absolute Nucleated RBC Nucleated RBC % (auto) ABG pH ABG pCO2 ABG pO2 ABG HCO3 ABG O2 Saturation ABG Base Excess Oxygen Given Sodium 141 Potassium 4.7 Chloride 105 Carbon Dioxide 21 L Anion Gap 20 BUN 47 H Creatinine 1.06 Estim Creat Clear Calc 53.7 Estimated GFR > 60 POC Glucose 379 H* 314 H Random Glucose 173 H Lactic Acid Lactic Acid Fup @ 2Hr Lactic Acid Fup @ 4Hr Calcium 9.6 Total Creatine Kinase Troponin I High Sens C-Reactive Protein B-Natriuretic Peptide Lipase Coronavirus (PCR) Influenza Type A (PCR) Influenza Type B (PCR) RSV RNA Qual (PCR) 06/29/20 06/29/20 06/30/20 17:05 20:51 08:07 WBC RBC Hgb Hct MCV MCH MCHC RDW Plt Count MPV Immature Gran % (Auto) Neut % (Auto) Lymph % (Auto) [place] % (Auto) Eos % (Auto) Baso % (Auto) Lymph # (Auto) [place] # (Auto) Eos # (Auto) Baso # (Auto) Abs Immat Gran (auto) Absolute Neuts (auto) Absolute Nucleated RBC Nucleated RBC % (auto) ABG pH ABG pCO2 ABG pO2 ABG HCO3 ABG O2 Saturation ABG Base Excess Oxygen Given Sodium Potassium Chloride Carbon Dioxide Anion Gap BUN Creatinine Estim Creat Clear Calc Estimated GFR POC Glucose 274 H 272 H 145 H Random Glucose Lactic Acid Lactic Acid Fup @ 2Hr Lactic Acid Fup @ 4Hr Calcium Total Creatine Kinase Troponin I High Sens C-Reactive Protein B-Natriuretic Peptide Lipase Coronavirus (PCR) Influenza Type A (PCR) Influenza Type B (PCR) RSV RNA Qual (PCR) 06/30/20 06/30/20 06/30/20 08:08 11:41 16:20 WBC RBC Hgb Hct MCV MCH MCHC RDW Plt Count MPV Immature Gran % (Auto) Neut % (Auto) Lymph % (Auto) [place] % (Auto) Eos % (Auto) Baso % (Auto) Lymph # (Auto) [place] # (Auto) Eos # (Auto) Baso # (Auto) Abs Immat Gran (auto) Absolute Neuts (auto) Absolute Nucleated RBC Nucleated RBC % (auto) ABG pH ABG pCO2 ABG pO2 ABG HCO3 ABG O2 Saturation ABG Base Excess Oxygen Given Sodium Potassium Chloride Carbon Dioxide Anion Gap BUN Creatinine Estim Creat Clear Calc Estimated GFR POC Glucose 157 H 75 Random Glucose Lactic Acid Lactic Acid Fup @ 2Hr Lactic Acid Fup @ 4Hr Calcium Total Creatine Kinase 23 L Troponin I High Sens C-Reactive Protein 0.40 B-Natriuretic Peptide Lipase Coronavirus (PCR) Influenza Type A (PCR) Influenza Type B (PCR) RSV RNA Qual (PCR) 06/30/20 06/30/20 07/01/20 20:27 20:54 08:04 WBC RBC Hgb Hct MCV MCH MCHC RDW Plt Count MPV Immature Gran % (Auto) Neut % (Auto) Lymph % (Auto) [place] % (Auto) Eos % (Auto) Baso % (Auto) Lymph # (Auto) [place] # (Auto) Eos # (Auto) Baso # (Auto) Abs Immat Gran (auto) Absolute Neuts (auto) Absolute Nucleated RBC Nucleated RBC % (auto) ABG pH ABG pCO2 ABG pO2 ABG HCO3 ABG O2 Saturation ABG Base Excess Oxygen Given Sodium Potassium Chloride Carbon Dioxide Anion Gap BUN Creatinine Estim Creat Clear Calc Estimated GFR POC Glucose 64 113 49 L* Random Glucose Lactic Acid Lactic Acid Fup @ 2Hr Lactic Acid Fup @ 4Hr Calcium Total Creatine Kinase Troponin I High Sens C-Reactive Protein B-Natriuretic Peptide Lipase Coronavirus (PCR) Influenza Type A (PCR) Influenza Type B (PCR) RSV RNA Qual (PCR) 07/01/20 07/01/20 07/01/20 08:22 09:28 11:08 WBC RBC Hgb Hct MCV MCH MCHC RDW Plt Count MPV Immature Gran % (Auto) Neut % (Auto) Lymph % (Auto) [place] % (Auto) Eos % (Auto) Baso % (Auto) Lymph # (Auto) [place] # (Auto) Eos # (Auto) Baso # (Auto) Abs Immat Gran (auto) Absolute Neuts (auto) Absolute Nucleated RBC Nucleated RBC % (auto) ABG pH ABG pCO2 ABG pO2 ABG HCO3 ABG O2 Saturation ABG Base Excess Oxygen Given Sodium Potassium Chloride Carbon Dioxide Anion Gap BUN Creatinine Estim Creat Clear Calc Estimated GFR POC Glucose 91 141 H 244 H Random Glucose Lactic Acid Lactic Acid Fup @ 2Hr Lactic Acid Fup @ 4Hr Calcium Total Creatine Kinase Troponin I High Sens C-Reactive Protein B-Natriuretic Peptide Lipase Coronavirus (PCR) Influenza Type A (PCR) Influenza Type B (PCR) RSV RNA Qual (PCR) 07/01/20 07/01/20 07/02/20 16:24 20:00 05:59 WBC 16.7 H RBC 2.73 L Hgb 8.8 L Hct 26.0 L MCV 95.2 MCH 32.2 MCHC 33.8 RDW 13.7 Plt Count 304 MPV 10.5 Immature Gran % (Auto) 2.5 H Neut % (Auto) 74.1 H Lymph % (Auto) 15.9 L [place] % (Auto) 6.6 Eos % (Auto) 0.8 Baso % (Auto) 0.1 Lymph # (Auto) 2.7 [place] # (Auto) 1.1 Eos # (Auto) 0.1 Baso # (Auto) 0.0 Abs Immat Gran (auto) 0.41 H Absolute Neuts (auto) 12.4 H Absolute Nucleated RBC 0.000 Nucleated RBC % (auto) 0.0 ABG pH ABG pCO2 ABG pO2 ABG HCO3 ABG O2 Saturation ABG Base Excess Oxygen Given Sodium Potassium Chloride Carbon Dioxide Anion Gap BUN Creatinine Estim Creat Clear Calc Estimated GFR POC Glucose 89 142 H Random Glucose Lactic Acid Lactic Acid Fup @ 2Hr Lactic Acid Fup @ 4Hr Calcium Total Creatine Kinase Troponin I High Sens C-Reactive Protein B-Natriuretic Peptide Lipase Coronavirus (PCR) Influenza Type A (PCR) Influenza Type B (PCR) RSV RNA Qual (PCR) 07/02/20 07/02/20 07/02/20 05:59 07:22 08:31 WBC RBC Hgb Hct MCV MCH MCHC RDW Plt Count MPV Immature Gran % (Auto) Neut % (Auto) Lymph % (Auto) [place] % (Auto) Eos % (Auto) Baso % (Auto) Lymph # (Auto) [place] # (Auto) Eos # (Auto) Baso # (Auto) Abs Immat Gran (auto) Absolute Neuts (auto) Absolute Nucleated RBC Nucleated RBC % (auto) ABG pH ABG pCO2 ABG pO2 ABG HCO3 ABG O2 Saturation ABG Base Excess Oxygen Given Sodium 138 Potassium 4.0 Chloride 99 Carbon Dioxide 28 Anion Gap 15 BUN 45 H Creatinine 0.98 Estim Creat Clear Calc 58.1 Estimated GFR > 60 POC Glucose 50 L* 161 H Random Glucose 40 L* Lactic Acid Lactic Acid Fup @ 2Hr Lactic Acid Fup @ 4Hr Calcium 8.7 D Total Creatine Kinase Troponin I High Sens C-Reactive Protein B-Natriuretic Peptide Lipase Coronavirus (PCR) Influenza Type A (PCR) Influenza Type B (PCR) RSV RNA Qual (PCR) Preliminary micro results at discharge 06/28/20 01:17 Blood Culture - Preliminary Blood - Venous No growth after 48 hours. 06/28/20 01:17 Blood Culture - Preliminary Blood - Venous No growth after 48 hours. Discharge Plan Discharge Patient Disposition: er [facility] Referrals: [facility] [Other] [facility] [Other] (BONE DENSITY ON 07/08/20 AT 2PM) [facility]io [Outside] (SHORT TERM REHAB, PHYSICAL THERAPY AND PULMONARY ) Physician,Unknown [Primary Care Provider] - Discharge Medications: New Lantus U-100 Insulin 100 unit/mL Solution 12 unit subcut BEDTIME Qty: 10 RF: 0 Metamucil Fiber Singles 3.4 gram Powder In Packet 3.4 g PO DAILY Qty: 30 RF: 0 benzonatate 100 mg Capsule 100 mg PO TID PRN (Reason: cough) Qty: 30 RF: 0 alprazolam 0.25 mg Tablet 0.25 mg PO BID PRN (Reason: Anxiety) Qty: 14 RF: 0 guaifenesin [Mucinex] 600 mg Tablet Extended Release 12hr 600 mg PO BID PRN (Reason: cough) Qty: 30 RF: 0 ipratropium-albuterol 0.5 mg-3 mg(2.5 mg base)/3 mL Solution For Nebulization 3 ml inhalation RQID Qty: 90 RF: 0 Continued nystatin 100,000 unit/mL suspension 4 ml PO .4 times a day PRN (Reason: thrush) 90 Days Qty: 180 RF: 1 pantoprazole 40 mg tablet,delayed release (DR/EC) 40 mg PO DAILY Qty: 90 RF: 3 prednisone 5 mg tablet 5 mg PO DAILY 90 Days Qty: 90 RF: 1 (DME) insulin syringe-needle U-100 0.5 mL 31 gauge x 5/16 syringe See Rx Instructions ml .ROUTE .MEDSUPPLY Qty: 4 RF: 3 atorvastatin 20 mg tablet 20 mg PO DAILY Qty: 90 RF: 3 furosemide [Lasix] 20 mg tablet 20 mg PO Q OTHER DAY 60 Days Qty: 30 RF: 1 montelukast 10 mg tablet 10 mg PO DAILY Qty: 90 RF: 3 diltiazem HCl 180 mg capsule,extended release 24hr 180 mg PO BID 90 Days Qty: 180 RF: 2 sucralfate 1 gram tablet 1 g PO BID Qty: 180 RF: 3 albuterol sulfate 90 mcg/actuation HFA aerosol inhaler 90 mcg inhalation Q6-8H PRN (Reason: Wheezing) RF: 0 fluticasone propion-salmeterol 250-50 mcg/dose blister with device 1 inh inhalation DAILY RF: 0 tizanidine 4 mg tablet 4 mg PO TID RF: 0 losartan 50 mg tablet 50 mg PO DAILY RF: 0 insulin lispro 100 unit/mL solution 100 sliding scale dose subcut DAILY RF: 0 (DME) blood sugar diagnostic Strip See Rx Instructions strip .ROUTE .MEDSUPPLY Qty: 10 RF: 0 fluticasone propionate 50 mcg/actuation spray,suspension 1 spray intranasal DAILY RF: 0 ferrous sulfate 325 mg (65 mg iron) tablet,delayed release (DR/EC) 325 mg PO DAILY RF: 0 hydrocodone-acetaminophen 5-325 mg tablet 1 tab PO BID PRN (Reason: Pain) RF: 0 Discontinued oxycodone 5 mg tablet 5 mg PO DAILY PRN (Reason: pain) 30 Days Qty: 30 RF: 0 metformin 500 mg tablet 500 mg PO BID 90 Days Qty: 180 RF: 3 alprazolam 0.5 mg tablet 0.5 mg PO DAILY PRN (Reason: Anxiety) RF: 0 Lantus U-100 Insulin 100 unit/mL solution 100 unit subcut DAILY RF: 0 ipratropium-albuterol 0.5 mg-3 mg(2.5 mg base)/3 mL solution for nebulization 0.5 ml inhalation Q4-6H RF: 0 Discharge Orders: Discharge Order (Routine); Ordered 07/02/20 Ordered By: Ariel Randle Diet: diabetic diet and low fat, low cholesterol Activity on Discharge: As tolerated Visit Report Forms: Patient Portal Discharge page Care Plan Goals: Physical therapy for muscle strengthing Health Concerns: asthma wean o2 not on home o2 Plan of Treatment: Close outpatient follow-up with primary care physician, Dr. Holt from pulmonology and Dr. Encarnacion from Cardiology
[2020-07-02 11:27] VITALS: PULSE 73; O2SAT 98
[2020-07-02 11:42] LABS: Glucose, Whole Blood 138 mg/dL (60-115)
[2020-07-02 12:03] LABS: COVID-19 Test Negative (Negative); IDNOW Serial# 9DD0AD1C
--- NOTE | 2020-07-02 12:34 | MHC.CM.PN ---
[facility] AT 1:30PM VIA BLS TRANSPORTATION, PT'S / HCP CAROL HAS BEEN NOTIFIED. CM CONTACTED DR. CHAUHAN'S OFFICE REGARDING PAPERWORK NEEDED FOR MEDICAL BED, PER DR CHAUHAN'S EMDICAL PLASTERING SUPERVISOR THIS IS USUALLY DONE BY PCP HOWEVER THEY ARE WILLING TO START PROCESS FOR PT. UPDATED.
== END 2020-07-02 13:43 | disposition skilled nursing facility (03) | DRG 190 ==
LOC: HO.ED 06-28 01:39 → HO.S3 06-29 19:07
PROVIDERS: Internal Medicine; Admitting Provider Student in an Organized Health Care Education/Training Program; Emergency Provider Emergency Medicine; Visit Provider Hospitalist
DX: J44.0 Chronic obstructive pulmonary disease with (acute) lower respiratory infection (principal); J96.01 Acute respiratory failure with hypoxia; E87.2 Acidosis; J44.1 Chronic obstructive pulmonary disease with (acute) exacerbation; I25.10 Atherosclerotic heart disease of native coronary artery without angina pectoris; Z20.828 Contact with and (suspected) exposure to other viral communicable diseases; N18.9 Chronic kidney disease, unspecified; E11.22 Type 2 diabetes mellitus with diabetic chronic kidney disease; D72.829 Elevated white blood cell count, unspecified; M35.3 Polymyalgia rheumatica; E11.42 Type 2 diabetes mellitus with diabetic polyneuropathy; D63.1 Anemia in chronic kidney disease; Z87.891 Personal history of nicotine dependence; Z95.1 Presence of aortocoronary bypass graft; Z88.0 Allergy status to penicillin; Z88.2 Allergy status to sulfonamides; Z79.4 Long term (current) use of insulin; Z79.51 Long term (current) use of inhaled steroids; Z79.52 Long term (current) use of systemic steroids; Z79.899 Other long term (current) drug therapy; F41.9 Anxiety disorder, unspecified; J20.9 Acute bronchitis, unspecified
CPT/HCPCS: 0241U; 36415; 71045; 80048; 80053; 82550; 82803; 82947; 83605; 83690; 83880; 84484; 85025; 85027; 86140; 87040; 87635; 93005; 94640; 94644; 96365; 96366; 96375; 97110; 97162; 99285; J1650; J2920; J2930; J3475

== ENCOUNTER 2020-07-08 13:38 | Outpatient (REF) | payer OTHER, MEDICARE, BC, SELFPAY ==
--- NOTE | 2020-07-08 13:42 | MM_ITS ---
EXAMINATION: BONE DENSITOMETRY CLINICAL INDICATION: Other osteoporosis without current pathological fracture. COMPARISON: Baseline BD dated 05/02/2015. TECHNIQUE: Using a [email or web address] DXA System (software version: 13.1) manufactured by [employer], dual-energy x-ray absorptiometry was performed of the lumbar spine and left hip. The images are of good technical quality. Summary results are attached. FINDINGS: AP SPINE L1-L4: Current: BMD 1.019 g/cm2, Z-score -0.8, T-score -1.7, osteopenia, 0.3% increase from baseline (<5% change is not significant). Baseline: BMD 1.016 g/cm2. LEFT FEMUR, NECK: Current: BMD 0.546 g/cm2, Z-score -2.4, T-score -4.0, osteoporosis. Baseline: BMD 0.668 g/cm2. LEFT FEMUR, TOTAL: Current: BMD 0.700 g/cm2, Z-score -1.6, T-score -2.8, osteoporosis, 15.4% decrease from baseline (<5% change is not significant). Baseline: BMD 0.827 g/cm2. IDENTIFIED RISK FACTORS: Osteoporosis, secondary osteoporosis, glucocorticoids (chronic). HISTORY OF FRACTURE: None listed. MEDICATIONS: Calcium supplements or multivitamin, vitamin D. MM/XR DEXA axial skeleton IMPRESSION: 1. DIAGNOSIS: Osteoporosis based on the lowest T-score value of -4.0 in the femoral neck applying World Health Organization criteria. 2. 10-YEAR FRACTURE RISK PREDICTION, FRAX: Major osteoporotic fracture (clinical spine, forearm, hip or shoulder) 26.5%. Hip fracture 16.6%. 3. Treatment Recommendations: NOF guidelines recommend consideration for treatment in postmenopausal women and men age 50 and older presenting with the following: -A hip or vertebral (clinical or morphometric) fracture. -T-score less than or equal to -2.5 at the femoral neck or spine after appropriate evaluation to exclude secondary causes. -Low bone mass at the hip or spine and a 10-year fracture probability by FRAX of greater than or equal to 3% for hip fracture or greater than or equal to 20% for major osteoporotic fracture based on the [place] adapted WHO algorithm. 4. Other Recommendations: All treatment decisions require clinical judgment and consideration of individual patient factors, including patient preferences, comorbidities, previous drug use, risk factors not captured in the FRAX model (e.g. frailty, falls, vitamin D deficiency, increased bone turnover, interval significant decline in bone density) and possible under or overestimation of fracture risk by FRAX. Additional medical evaluation for secondary cause of low bone mineral density may be appropriate. FUTURE SCAN RECOMMENDATION: People with diagnosed cases of osteoporosis or at high risk for fracture should have regular bone mineral density tests. For patients eligible for Medicare, routine testing is allowed once every 2 years. The testing frequency can be increased to one year for patients who have rapidly progressing disease, those who are receiving or discontinuing medical therapy to restore bone mass, or have additional risk factors.
== END 2020-07-08 13:39 | disposition home or self-care (01) ==
LOC: HO.MAMMO 13:38
PROVIDERS: Visit Provider Student in an Organized Health Care Education/Training Program
DX: M81.8 Other osteoporosis without current pathological fracture (principal)
CPT/HCPCS: 77080

== ENCOUNTER 2020-07-27 21:56 | Emergency (ER) | payer OTHER, SELFPAY ==
--- NOTE | 2020-07-27 | ECG_ITS ---
Test Reason : COUGH Blood Pressure : / mmHG Vent. Rate : 089 BPM Atrial Rate : 089 BPM P-R Int : 132 ms QRS Dur : 108 ms QT Int : 350 ms P-R-T Axes : 050 014 234 degrees QTc Int : 425 ms Normal sinus rhythm Possible Inferior infarct (cited on or before 28-JUN-2020) ST & T wave abnormality, consider lateral ischemia Abnormal ECG When compared with ECG of 28-JUN-2020 00:42, T wave inversion now evident in Anterolateral leads Referred By: Brady Hardy Electronically Signed By:SERJIO MAI
--- NOTE | ~2020-07-27 | XR_ITS ---
EXAMINATION: XR CHEST CLINICAL INFORMATION: Question COVID pneumonia COMPARISON: 06/28/2020 TECHNIQUE: Frontal view of the chest was obtained. FINDINGS: The patient's head and chin overlie the lung apices, particularly the left. Elevation or mass. No pleural effusion or pneumothorax. Sternal wires and mediastinal vascular clips. Tortuous aorta. Normal heart size. Degenerative changes of the shoulders. XR/XR chest 1V IMPRESSION: No acute pulmonary disease.
--- NOTE | 2020-07-27 22:06 | ED_ITS ---
HPI - SOB/Dyspnea General Chief Complaint: Upper Respiratory Symptoms Stated Complaint: sob covid Time Seen by Provider: 07/27/20 22:06 Source: patient Mode of arrival: ambulatory Limitations: no limitations History of Present Illness HPI Narrative: Patient with history of COPD on chronic prednisone treatment 5 mg daily tested positive for COVID 2 days ago comes here for cough and increased shortness of breath after the news of COVID result, saturating 95% room air on arrival coughing a lot without any significant phlegm feeling okay otherwise MD elicited complaint: shortness of breath and cough Pertinent past history: COPD Onset (ago): day(s) (Today) Timing: constant Severity: mild Exacerbating factors: exertion Relieving factors: oxygen Known history of: COPD Related Data Home Medications Medication Instructions Recorded Confirmed albuterol sulfate 90 mcg/actuation 90 mcg INHALATION Q6-8H PRN 03/17/20 06/27/20 aerosol inhaler blood sugar diagnostic #10 ea 03/17/20 06/27/20 ferrous sulfate 325 mg (65 mg 325 mg PO DAILY 03/17/20 06/27/20 iron) tablet,delayed release fluticasone 250 mcg-salmeterol 50 1 inh INHALATION DAILY 03/17/20 06/27/20 mcg/dose blistr powdr for inhalation fluticasone propionate 50 1 spray INTRANASAL DAILY 03/17/20 06/27/20 mcg/actuation nasal spray,suspension insulin lispro 100 unit/mL 100 sliding scale dose SUBCUT DAILY 03/17/20 06/27/20 subcutaneous solution losartan 50 mg tablet 50 mg PO DAILY 03/17/20 06/27/20 tizanidine 4 mg tablet 4 mg PO TID 03/17/20 06/27/20 hydrocodone 5 mg-acetaminophen 325 1 tab PO BID PRN 05/29/20 06/27/20 mg tablet Previous Rx's Medication Instructions Recorded nystatin 100,000 unit/mL oral 4 ml PO .4 times a day PRN 90 Days 04/18/20 suspension #180 ml pantoprazole 40 mg tablet,delayed 40 mg PO DAILY #90 tab 05/06/20 release prednisone 5 mg tablet 5 mg PO DAILY 90 Days #90 tab 05/26/20 insulin syringe-needle U-100 0.5 #4 box 05/28/20 mL 31 gauge x 5/16 atorvastatin 20 mg tablet 20 mg PO DAILY #90 tab 06/03/20 furosemide 20 mg tablet 20 mg PO Q OTHER DAY 60 Days #30 06/18/20 tab diltiazem HCl 180 mg 180 mg PO BID 90 Days #180 cap 06/23/20 capsule,extended release 24 hr sucralfate 1 gram tablet 1 g PO BID #180 tab 06/23/20 montelukast 10 mg tablet 10 mg PO DAILY #90 tab 06/25/20 alprazolam 0.25 mg PO BID PRN #14 tab 07/02/20 benzonatate 100 mg PO TID PRN #30 cap 07/02/20 guaifenesin [Mucinex] 600 mg PO BID PRN #30 tab 07/02/20 insulin glargine [Lantus U-100 12 unit SUBCUT BEDTIME #10 ml 07/02/20 Insulin] ipratropium-albuterol 3 ml INHALATION RQID #90 ml 07/02/20 psyllium husk (aspartame) 3.4 g PO DAILY #30 ea 07/02/20 [Metamucil Fiber Singles] epinephrine 0.3 mg/0.3 mL 0.3 mg IM Q10M PRN #2 ea 07/25/20 injection, auto-injector benzonatate [Tessalon Perles] 100 mg PO TID PRN #30 cap 07/27/20 prednisone 40 mg PO DAILY #12 tab 07/27/20 Allergies Allergy/AdvReac Type Severity Reaction Status Date / Time ELLEN Inhibitors Allergy Severe DIFFICULTY Verified 06/28/20 01:47 [ELLEN INHIBITORS] BREATHING egg [EGGS] Allergy Severe DIFFICULTY Verified 06/28/20 01:47 BREATHING nut - unspecified [nut] Allergy Severe ANAPHYLAXIS Verified 06/28/20 01:47 acetic acid [VINEGAR] Allergy Unknown UNKNOWN Verified 06/28/20 01:47 hydrochlorothiazide Allergy Unknown Unknown Verified 06/28/20 01:47 mold Allergy Unknown SHORTNESS Verified 06/28/20 01:47 OF BREATH niacin [From SIMCOR] Allergy Unknown SHORTNESS Verified 06/28/20 01:47 OF BREATH penicillin V Allergy Unknown throat Verified 06/28/20 01:47 swelling simvastatin Allergy Unknown Unknown Verified 06/28/20 01:47 Sulfa (Sulfonamide Allergy Unknown SWELLING Verified 06/28/20 01:47 Antibiotics) [SULFA (SULFONAMIDE ANTIBIOTICS)] tramadol Allergy Unknown Unknown Verified 06/27/20 12:44 wheat Allergy Unknown UNKNOWN Verified 06/27/20 12:44 corn syrup [CORN SYRUP] AdvReac Mild N/D Verified 06/27/20 12:44 lactose [LACTOSE] AdvReac Mild N/V/D Verified 06/28/20 14:37 FLU VACCINE Allergy Unknown Difficulty Uncoded 04/03/20 14:54 Breathing Review of Systems Review of Systems: Constitutional : No Weight loss, No Fever, No Chills ENT/Mouth : No sore throat, No Rhinorrhea Eyes: No Eye Pain, No Swelling Cardiovascular : No Chest Pain, no palpitations Respiratory : +Cough, No Sputum, no shortness of breath Gastrointestinal : no Nausea, No Vomiting, No Diarrhea, No abdominal Pain, no black stools Genitourinary : No Dysuria, No Urinary Frequency Musculoskeletal : No joint pain, No Myalgias, No Joint Swelling Skin : No Skin Lesions, No rash Neuro : No Weakness, No Numbness, No Dizziness, No Headache Psych : No Anxiety/Panic, No Depression Heme/Lymph: No Bruising, No Lymphadenopathy Endocrine : No Polyuria, No Polydipsia All other systems reviewed and are negative [facility] Past Medical History Medical History Allergic rhinitis Anxiety Bronchitis Cancer of skin of right ear Cataracts, bilateral Cholelithiasis Chronic kidney disease (CKD) stage G2/A1, mildly decreased glomerular filtration rate (GFR) between 60-89 mL/min/1.73 square meter and albuminuria creatinine ratio less than 30 mg/g COPD (chronic obstructive pulmonary disease) Coronary artery disease Erectile dysfunction GERD (gastroesophageal reflux disease) Hx of hiatal hernia Hypertension Osteoporosis Peripheral vascular disease PMR (polymyalgia rheumatica) Surgical History Hx of appendectomy S/P triple vessel bypass Family History Family History Family/Other Cancer Social History Social History Household Members: Spouse Housing: House Smoking Status: Unknown if ever smoked Packs Per Day: 1 Smoked in Last 30 Days: No Use of substances other than those prescribed or required for medical reasons: No Any prior treatment program specific to substance use: No Advance Directives: No Advance Directives Information Provided: Yes service: No Current occupational status: retired Physical Exam Vital Signs: Vital Signs: Last Vital Signs Temp 99.8 F 07/27/20 22:37 Pulse 89 07/27/20 22:16 Resp 18 07/27/20 22:16 BP 127/62 07/27/20 22:16 Pulse Ox 95 07/27/20 22:37 Body Mass Index 26.1 Appearance: Alert. Oriented X3. No acute distress. Eyes: Pupils equal, round and reactive to light. ENT: Pharynx normal. Neck: Normal inspection. Neck supple. CVS: Normal heart rate and rhythm. Pulses normal. Respiratory: No respiratory distress. Prolonged expiration, no wheezing no rales Abdomen: Soft and nontender. Bowel sounds are present, no mass palpable, no CVA tenderness Skin: Skin warm and dry. Normal skin color. Normal skin turgor. Extremities: No lower extremity edema. Neuro: Oriented X 3. No motor deficit. No sensory deficit. MDM - SOB/Dyspnea MDM Narrative Medical decision making narrative: Patient COVID positive chest x-ray negative for any infiltrate saturating 95% patient already on prednisone 5 mg daily will increase the dose to 40 mg daily for next 6 days advised to continue his inhaler and come to ER if increased shortness of breath Differential Diagnosis Differential diagnosis: Likely acute exacerbation of chronic obstructive airways disease Medical Records Attestation: I reviewed the patient's medical records. Lab Data Attestation: I reviewed the patient's lab results. Labs: Lab Results 07/27/20 Range/Units 22:29 COVID-19 ([facility]AVANI) Positive A (Negative) COVID-19 Clin Com See Note Imaging Data Chest x-ray: Attestation: I personally reviewed and interpreted this imaging study as follows: Radiologist's impression: [facility], [place] [address]RLoo ReportSigned Patient: Kwesi Kim WMR#: [id number]: [id number]:[id number]/Sex: 79 / MADM Date: 07/27/20Loc: HO.EDAttending Dr: Ordering Physician: Brady Hardy MD Date of Service: 07/27/20 Procedure(s): XR chest 1V Accession Number(s): [id number] cc: Brady Hardy MD~ EXAMINATION: XR CHEST CLINICAL INFORMATION: Question COVID pneumonia COMPARISON: 06/28/2020 TECHNIQUE: Frontal view of the chest was obtained. FINDINGS: The patient's head and chin overlie the lung apices, particularly the left. Elevation or mass. No pleural effusion or pneumothorax. Sternal wires and mediastinal vascular clips. Tortuous aorta. Normal heart size. Degenerative changes of the shoulders. XR/XR chest 1V IMPRESSION: No acute pulmonary disease. Discharge Plan Discharge Clinical Impression: COVID-19 Patient Disposition: Home, Self-Care Instructions: COVID-19 (Coronavirus Disease 2019) (ED) Additional Instructions: Increased dose of prednisone to 40 mg daily for next 6 days. Report to the ER if worsening of shortness of breath Prescriptions: New prednisone 20 mg tablet 40 mg PO DAILY Qty: 12 RF: 0 benzonatate [Tessalon Perles] 100 mg capsule 100 mg PO TID PRN (Reason: cough) Qty: 30 RF: 0 No Action nystatin 100,000 unit/mL suspension 4 ml PO .4 times a day PRN (Reason: thrush) 90 Days Qty: 180 RF: 1 pantoprazole 40 mg tablet,delayed release (DR/EC) 40 mg PO DAILY Qty: 90 RF: 3 prednisone 5 mg tablet 5 mg PO DAILY 90 Days Qty: 90 RF: 1 (DME) insulin syringe-needle U-100 0.5 mL 31 gauge x 5/16 syringe See Rx Instructions ml .ROUTE .MEDSUPPLY Qty: 4 RF: 3 atorvastatin 20 mg tablet 20 mg PO DAILY Qty: 90 RF: 3 furosemide [Lasix] 20 mg tablet 20 mg PO Q OTHER DAY 60 Days Qty: 30 RF: 1 montelukast 10 mg tablet 10 mg PO DAILY Qty: 90 RF: 3 epinephrine 0.3 mg/0.3 mL auto-injector 0.3 mg IM Q10M PRN (Reason: anaphylaxis) Qty: 2 RF: 0 Lantus U-100 Insulin 100 unit/mL Solution 12 unit subcut BEDTIME Qty: 10 RF: 0 Metamucil Fiber Singles 3.4 gram Powder In Packet 3.4 g PO DAILY Qty: 30 RF: 0 benzonatate 100 mg Capsule 100 mg PO TID PRN (Reason: cough) Qty: 30 RF: 0 alprazolam 0.25 mg Tablet 0.25 mg PO BID PRN (Reason: Anxiety) Qty: 14 RF: 0 guaifenesin [Mucinex] 600 mg Tablet Extended Release 12hr 600 mg PO BID PRN (Reason: cough) Qty: 30 RF: 0 ipratropium-albuterol 0.5 mg-3 mg(2.5 mg base)/3 mL Solution For Nebulization 3 ml inhalation RQID Qty: 90 RF: 0 diltiazem HCl 180 mg capsule,extended release 24hr 180 mg PO BID 90 Days Qty: 180 RF: 2 sucralfate 1 gram tablet 1 g PO BID Qty: 180 RF: 3 albuterol sulfate 90 mcg/actuation HFA aerosol inhaler 90 mcg inhalation Q6-8H PRN (Reason: Wheezing) RF: 0 fluticasone propion-salmeterol 250-50 mcg/dose blister with device 1 inh inhalation DAILY RF: 0 tizanidine 4 mg tablet 4 mg PO TID RF: 0 losartan 50 mg tablet 50 mg PO DAILY RF: 0 insulin lispro 100 unit/mL solution 100 sliding scale dose subcut DAILY RF: 0 (DME) blood sugar diagnostic Strip See Rx Instructions strip .ROUTE .MEDSUPPLY Qty: 10 RF: 0 fluticasone propionate 50 mcg/actuation spray,suspension 1 spray intranasal DAILY RF: 0 ferrous sulfate 325 mg (65 mg iron) tablet,delayed release (DR/EC) 325 mg PO DAILY RF: 0 hydrocodone-acetaminophen 5-325 mg tablet 1 tab PO BID PRN (Reason: Pain) RF: 0
[2020-07-27 22:16] VITALS: BP 127/62; PULSE 89; RESP 18; TEMP 37.7; O2SAT 95; BMI 26.1
[2020-07-27 22:37] VITALS: TEMP 37.7; O2SAT 95
[2020-07-27 23:07] LABS: COVID-19 Test Positive (Negative); IDNOW Serial# 9DD0AD1C
[2020-07-28] MEDS: predniSONE 20 MG TABLET 40 MG PO (00:13)
== END 2020-07-28 02:11 | disposition home or self-care (01) ==
PROVIDERS: Emergency Provider Internal Medicine
DX: U07.1 COVID-19 (principal); I12.9 Hypertensive chronic kidney disease with stage 1 through stage 4 chronic kidney disease, or unspecified chronic kidney disease; N18.2 Chronic kidney disease, stage 2 (mild)
CPT/HCPCS: 36415; 71045; 87635; 93005; 99283; 99285

== ENCOUNTER 2020-07-31 13:06 | Inpatient (IN) | payer OTHER, MEDICARE, BC, SELFPAY ==
[2020-07-31] VITALS (12 sets, daily range): BP systolic 131–177; BP diastolic 54–85; PULSE 71–92; RESP 18–27; TEMP 36.4–37.3; O2SAT 91–98; BMI 25.2; BMI 27.3
--- NOTE | ~2020-07-31 | XR_ITS ---
EXAMINATION: XR CHEST CLINICAL INFORMATION: 79-year-old male patient with worsening hypoxia. COMPARISON: CT the chest on 07/31/2020. (Covid pneumonia). Chest x-ray on 07/08/2020. (No acute). TECHNIQUE: AP portable semierect view view of the chest was obtained. The time of examination was 10:45 AM. FINDINGS: Since July 27, the patient has developed abnormal lung opacities in both upper lobes greater on the right than left and the right middle lobe. The extent of disease is similar to that seen on the CT examination of 07/31/2020 and is consistent with atypical pneumonia due to Covid. There is no pleural effusion. The dependent atelectatic changes of both lower lobes on the CT exam are not apparent on this semierect portable view. XR/XR chest 1V IMPRESSION: Atypical pneumonia involving both upper lobes worse on the right than left. Involvement also is seen in the right middle lobe. There has has been a deterioration of both lungs since the admission film of 07/27/2020.
--- NOTE | ~2020-07-31 | XR_ITS ---
EXAMINATION: XR CHEST CLINICAL INFORMATION: Follow-up Covid infection COMPARISON: Previous chest x-rays most recent 08/03/2020 TECHNIQUE: Frontal view of the chest was obtained. FINDINGS: The patient is rotated to the left. The cardiac and mediastinal contours are stable. 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 There are bilateral areas of increased attenuation and denser atelectasis or small infiltrate. These are seen in the lower lungs appear increased from previous exam. There is no pleural effusion or pneumothorax. There are degenerative changes of the spine. XR/XR chest 1V IMPRESSION: Limited exam due to patient positioning. Increasing bilateral lower lung infiltrates previous exams.
--- NOTE | ~2020-07-31 | CT_ITS ---
EXAMINATION: CT CHEST WITHOUT CONTRAST CLINICAL INFORMATION: COVID pneumonia, hypoxia COMPARISON: Chest radiograph 07/27/2020, CT chest noncontrast 05/07/2019. TECHNIQUE: Multidetector volumetric CT imaging of the chest was done. Axial MIP volume rendering provided. Sagittal and coronal reformatted images were obtained. This CT examination was performed using dose optimization techniques as appropriate, variously including the following: *Automated exposure control *Adjustment of mA and/or kV according to patient size (this includes techniques or standardized protocols for targeted exams where dose is matched to indication/reason for exam; i.e. extremities or head) *Use of iterative reconstruction technique DLP: 277 mGy-cm FINDINGS: LUNGS: There is patchy bilateral geographic central and peripheral groundglass opacities, greater on the right and greater in the upper zones consistent with the history COVID pneumonia. There is bilateral posterior basilar subsegmental atelectasis. There is no flowing lobar or segmental airspace consolidation. No pneumothorax or pneumomediastinum. The central airways are clear. MEDIASTINUM: No hilar or mediastinal mass or adenopathy. No pericardial effusion. Thoracic aorta normal in caliber. Stable nodule posterior lower pole right thyroid. No supraclavicular adenopathy. PLEURA: There is no pleural effusion. No pleural mass or thickening. AXILLA: No lymphadenopathy. UPPER ABDOMEN: Unremarkable. OSSEOUS STRUCTURES: Prior median sternotomy. No acute bony abnormality. CT/CT chest wo con IMPRESSION: 1. Patchy bilateral groundglass opacities greater on right, consistent with history COVID pneumonia. 2. No confluent lobar or segmental airspace consolidation or effusion.
--- NOTE | 2020-07-31 13:23 | ECG_ITS ---
Test Reason : SOB Blood Pressure : / mmHG Vent. Rate : 089 BPM Atrial Rate : 089 BPM P-R Int : 128 ms QRS Dur : 100 ms QT Int : 466 ms P-R-T Axes : 022 -03 126 degrees QTc Int : 566 ms Normal sinus rhythm Minimal voltage criteria for LVH, may be normal variant Inferior infarct , age undetermined Abnormal ECG When compared to the previous EKG of ST changes have improved Referred By: Brady Hardy Electronically Signed By:RAFA LOERA MD
--- NOTE | 2020-07-31 13:28 | ED_ITS ---
HPI - SOB/Dyspnea General Chief Complaint: Dyspnea Stated Complaint: +COVID,INCREASED SOB, COUGH Time Seen by Provider: 07/31/20 13:23 Source: patient Mode of arrival: EMS Limitations: no limitations History of Present Illness HPI Narrative: Patient with hx of COPD on chronic prednisone treatment 5 mg daily for PMR was seen here on 07/27 for COVID positive at that time patient was saturating 95% started on higher dose of prednisone 40 mg gradually patient getting worse and worse very exhausted short of breath and coughing a lot still saturating 95% at room air but tachypneic MD elicited complaint: shortness of breath and cough Pertinent past history: COPD Onset (ago): day(s) (6) Timing: constant Severity: moderate Exacerbating factors: exertion and coughing Relieving factors: nothing Known history of: COPD Associated symptoms: other (weakness) Treatment prior to arrival: oxygen Related Data Home Medications Medication Instructions Recorded Confirmed albuterol sulfate 90 mcg/actuation 90 mcg INHALATION Q6-8H PRN 03/17/20 07/31/20 aerosol inhaler ferrous sulfate 325 mg (65 mg 325 mg PO DAILY 03/17/20 07/31/20 iron) tablet,delayed release fluticasone 250 mcg-salmeterol 50 1 inh INHALATION BID 03/17/20 07/31/20 mcg/dose blistr powdr for inhalation fluticasone propionate 50 1 spray INTRANASAL DAILY 03/17/20 07/31/20 mcg/actuation nasal spray,suspension insulin lispro 100 unit/mL 5 unit SUBCUT TIDAC 03/17/20 07/31/20 subcutaneous solution losartan 50 mg tablet 50 mg PO DAILY 03/17/20 07/31/20 alprazolam 0.5 mg PO Q6H PRN 07/31/20 07/31/20 ascorbic acid (vitamin C) [Vitamin 500 mg PO DAILY 07/31/20 07/31/20 C] atorvastatin 20 mg PO BEDTIME 07/31/20 07/31/20 cholecalciferol (vitamin D3) 25 mcg PO DAILY 07/31/20 07/31/20 montelukast 10 mg PO BEDTIME 07/31/20 07/31/20 nystatin 4 ml PO BID 07/31/20 07/31/20 Previous Rx's Medication Instructions Recorded pantoprazole 40 mg tablet,delayed 40 mg PO DAILY #90 tab 05/06/20 release furosemide 20 mg tablet 20 mg PO Q OTHER DAY 60 Days #30 06/18/20 tab diltiazem HCl 180 mg 180 mg PO BID 90 Days #180 cap 06/23/20 capsule,extended release 24 hr sucralfate 1 gram tablet 1 g PO BID #180 tab 06/23/20 guaifenesin [Mucinex] 600 mg PO BID PRN #30 tab 07/02/20 insulin glargine [Lantus U-100 12 unit SUBCUT BEDTIME #10 ml 07/02/20 Insulin] benzonatate [Tessalon Perles] 100 mg PO TID PRN #30 cap 07/27/20 prednisone 40 mg PO DAILY #12 tab 07/27/20 Allergies Allergy/AdvReac Type Severity Reaction Status Date / Time ELLEN Inhibitors Allergy Severe DIFFICULTY Verified 07/31/20 13:22 [ELLEN INHIBITORS] BREATHING egg [EGGS] Allergy Severe DIFFICULTY Verified 07/31/20 13:22 BREATHING nut - unspecified [nut] Allergy Severe ANAPHYLAXIS Verified 07/31/20 13:22 acetic acid [VINEGAR] Allergy Unknown UNKNOWN Verified 07/31/20 13:22 hydrochlorothiazide Allergy Unknown Unknown Verified 07/31/20 13:22 mold Allergy Unknown SHORTNESS Verified 07/31/20 13:22 OF BREATH niacin [From SIMCOR] Allergy Unknown SHORTNESS Verified 07/31/20 13:22 OF BREATH penicillin V Allergy Unknown throat Verified 07/31/20 13:22 swelling simvastatin Allergy Unknown Unknown Verified 07/31/20 13:22 Sulfa (Sulfonamide Allergy Unknown SWELLING Verified 07/31/20 13:22 Antibiotics) [SULFA (SULFONAMIDE ANTIBIOTICS)] tramadol Allergy Unknown Unknown Verified 07/31/20 13:22 wheat Allergy Unknown UNKNOWN Verified 07/31/20 13:22 corn syrup [CORN SYRUP] AdvReac Mild N/D Verified 07/31/20 13:22 lactose [LACTOSE] AdvReac Mild N/V/D Verified 07/31/20 13:22 FLU VACCINE Allergy Unknown Difficulty Uncoded 07/31/20 13:22 Breathing Review of Systems Review of Systems: Constitutional : No Weight loss, subjective Fever, No Chills ENT/Mouth : No sore throat, No Rhinorrhea Eyes: No Eye Pain, No Swelling Cardiovascular : No Chest Pain, no palpitations Respiratory : ++Cough, No Sputum, +++ shortness of breath Gastrointestinal : no Nausea, No Vomiting, No Diarrhea, No abdominal Pain, no black stools Genitourinary : No Dysuria, No Urinary Frequency Musculoskeletal : No joint pain, No Myalgias, No Joint Swelling Skin : No Skin Lesions, No rash Neuro : ++ Weakness, No Numbness, No Dizziness, No Headache Psych : No Anxiety/Panic, No Depression Heme/Lymph: No Bruising, No Lymphadenopathy Endocrine : No Polyuria, No Polydipsia All other systems reviewed and are negative [facility] Past Medical History Medical History Allergic rhinitis Anxiety Bronchitis Cancer of skin of right ear Cataracts, bilateral Cholelithiasis Chronic kidney disease (CKD) stage G2/A1, mildly decreased glomerular filtration rate (GFR) between 60-89 mL/min/1.73 square meter and albuminuria creatinine ratio less than 30 mg/g COPD (chronic obstructive pulmonary disease) Coronary artery disease Erectile dysfunction GERD (gastroesophageal reflux disease) Hx of hiatal hernia Hypertension Osteoporosis Peripheral vascular disease PMR (polymyalgia rheumatica) Surgical History Hx of appendectomy S/P triple vessel bypass Family History Family History Family/Other Cancer Social History Social History Household Members: Spouse Housing: House Alcohol intake: never Smoking Status: Former smoker Packs Per Day: 1 Smoked in Last 30 Days: No Advance Directives: Yes Advance Directives Information Provided: No (ISOLATION) Advance Directives on File: Yes Advance Directives Date on File: 07/03/20 service: No Current occupational status: retired Physical Exam Vital Signs: Vital Signs: Last Vital Signs Temp 97.7 F 07/31/20 16:07 Pulse 83 07/31/20 16:07 Resp 18 07/31/20 16:07 BP 164/65 H 07/31/20 16:07 Pulse Ox 93 07/31/20 16:07 Body Mass Index 25.2 Const: General: well developed, alert, in distress and other (Coughing frequently) Nutritional Appearance: thin Orientation/consciousness: patient oriented x3 Limitations: no limitations HENMT: Head: Yes normal to inspection Ears: hearing grossly normal bilaterally Mouth: Normal oral and palatal mucosa present Eyes: General: appearance normal, both eyes and all related structures Neck: Neck: Yes normal visual inspection and Yes no lymphadenopathy Thyroid: Thyroid normal Chest: Chest palpation & inspection: normal inspection of the chest Resp: Effort & Inspection: labored and nasal flaring Auscultation: crackles bilateral and diffuse, rales bilateral and diffuse, rhonchi throughout and wheezes throughout Cardio: Jugular venous distension: no JVD Palpation: normal PMI Rate: regular rate Rhythm: regular rhythm Heart sounds: S1 normal heart sound present and S2 normal heart sound present GI: Inspection: Yes normal to inspection Palpation (GI): Soft to palpation and nontender Auscultation: normal bowel sounds : General: Yes no CVA tenderness Back/Spine/Pelvis: Back: no CVA tenderness Thoracic/Lumbar Spine: thoracic and lumbar spine normal to inspection Skin: General skin exam: no rashes or lesions noted Neuro: General: patient oriented x3 and no focal motor deficits Extrem: General: Yes normal to inspection, Yes no calf tenderness and No pedal edema MDM - SOB/Dyspnea MDM Narrative Medical decision making narrative: Patient with COVID-[address] showed diffuse B/L infiltrates patient is symptomatic weak , hypoxic on minimal exertion already on prednisone with multiple comorbid conditions will admit patient for supportive treatment IV steroids and oxygen Differential Diagnosis Differential diagnosis: Likely acute exacerbation of chronic obstructive airways disease, congestive heart failure and pneumonia Medical Records Attestation: I reviewed the patient's medical records. Lab Data Attestation: I reviewed the patient's lab results. Result diagrams: 07/31/20 14:25 07/31/20 14:25 Labs: Lab Results 07/31/20 07/31/20 07/31/20 Range/Units 14:25 14:25 14:25 WBC 11.9 H (4.8-10.8) X10*3/uL RBC 2.81 L (4.60-5.80) X10*6/uL Hgb 9.0 L (14.0-18.0) g/dl Hct 27.1 L (42-52) % MCV 96.4 (80-98) fL MCH 32.0 (27.0-33.0) pg MCHC 33.2 (31.0-36.0) g/dl RDW 13.8 (11.0-16.0) % Plt Count 293 (160-400) X10*3/uL MPV 10.6 (9.4-12.4) fL Immature Gran % (Auto) 1.3 H (0.0-0.4) % Neut % (Auto) 91.4 H (45-73) % Lymph % (Auto) 3.3 L (20-40) % [place] % (Auto) 3.9 (2-11) % Eos % (Auto) 0.0 (0-4) % Baso % (Auto) 0.1 (0-2) % Lymph # (Auto) 0.4 L (1.2-4.9) X10*3/uL [place] # (Auto) 0.5 (0.1-1.2) X10*3/uL Eos # (Auto) 0.0 (0.0-0.4) X10*3/uL Baso # (Auto) 0.0 (0.0-0.2) X10*3/uL Abs Immat Gran (auto) 0.16 H (0.00-0.03) X10*3/uL Absolute Neuts (auto) 10.9 H (2.0-8.3) X10*3/uL Absolute Nucleated RBC 0.000 (0.0-0.012) X10*3/uL Nucleated RBC % (auto) 0.0 (0.0-0.2) /100WBC Smear Tech's Comments VERIFIED PT 10.7 L (10.8-13.0) SEC INR 0.9 (0.9-1.1) APTT 28.5 (24.1-38.0) SEC D-Dimer 437 NG/ML VBG pH (7.32-7.43) VBG pCO2 mmHg VBG pO2 mmHg VBG HCO3 mmol/L VBG O2 Saturation % VBG Base Excess mmol/L Sodium 143 (135-145) mmol/L Potassium 4.9 (3.3-5.1) mmol/L Chloride 111 H (96-108) mmol/L Carbon Dioxide 18 L (22-29) mmol/L Anion Gap 19 (12-20) BUN 44 H (9-16) mg/dL Creatinine 1.42 H (0.5-1.4) mg/dL Estim Creat Clear Calc 40.1 Estimated GFR 48 Random Glucose 221 H D (60-115) mg/dL Lactic Acid (0.5-2.0) mmol/L Calcium 8.8 (8.4-10.2) mg/dL Ferritin 364 H (20-250) ng/mL Total Bilirubin 0.2 (0.0-1.0) mg/dL Direct Bilirubin < 0.2 (0.0-0.5) mg/dL AST 14 (5-37) U/L ALT 11 (0-40) U/L Alkaline Phosphatase 71 (39-117) U/L Troponin I High Sens (<3.5-35.0) ng/L C-Reactive Protein 1.69 H (< or = 0.50) mg/dL Total Protein 6.0 L (6.5-8.0) g/dL Albumin 3.7 (3.5-5.0) g/dL Procalcitonin ng/mL 07/31/20 07/31/20 07/31/20 Range/Units 14:25 14:25 14:25 WBC (4.8-10.8) X10*3/uL RBC (4.60-5.80) X10*6/uL Hgb (14.0-18.0) g/dl Hct (42-52) % MCV (80-98) fL MCH (27.0-33.0) pg MCHC (31.0-36.0) g/dl RDW (11.0-16.0) % Plt Count (160-400) X10*3/uL MPV (9.4-12.4) fL Immature Gran % (Auto) (0.0-0.4) % Neut % (Auto) (45-73) % Lymph % (Auto) (20-40) % [place] % (Auto) (2-11) % Eos % (Auto) (0-4) % Baso % (Auto) (0-2) % Lymph # (Auto) (1.2-4.9) X10*3/uL [place] # (Auto) (0.1-1.2) X10*3/uL Eos # (Auto) (0.0-0.4) X10*3/uL Baso # (Auto) (0.0-0.2) X10*3/uL Abs Immat Gran (auto) (0.00-0.03) X10*3/uL Absolute Neuts (auto) (2.0-8.3) X10*3/uL Absolute Nucleated RBC (0.0-0.012) X10*3/uL Nucleated RBC % (auto) (0.0-0.2) /100WBC Smear Tech's Comments PT (10.8-13.0) SEC INR (0.9-1.1) APTT (24.1-38.0) SEC D-Dimer NG/ML VBG pH (7.32-7.43) VBG pCO2 mmHg VBG pO2 mmHg VBG HCO3 mmol/L VBG O2 Saturation % VBG Base Excess mmol/L Sodium (135-145) mmol/L Potassium (3.3-5.1) mmol/L Chloride (96-108) mmol/L Carbon Dioxide (22-29) mmol/L Anion Gap (12-20) BUN (9-16) mg/dL Creatinine (0.5-1.4) mg/dL Estim Creat Clear Calc Estimated GFR Random Glucose (60-115) mg/dL Lactic Acid 3.5 H* (0.5-2.0) mmol/L Calcium (8.4-10.2) mg/dL Ferritin (20-250) ng/mL Total Bilirubin (0.0-1.0) mg/dL Direct Bilirubin (0.0-0.5) mg/dL AST (5-37) U/L ALT (0-40) U/L Alkaline Phosphatase (39-117) U/L Troponin I High Sens 12.3 D (<3.5-35.0) ng/L C-Reactive Protein (< or = 0.50) mg/dL Total Protein (6.5-8.0) g/dL Albumin (3.5-5.0) g/dL Procalcitonin 0.06 ng/mL 07/31/20 Range/Units 14:25 WBC (4.8-10.8) X10*3/uL RBC (4.60-5.80) X10*6/uL Hgb (14.0-18.0) g/dl Hct (42-52) % MCV (80-98) fL MCH (27.0-33.0) pg MCHC (31.0-36.0) g/dl RDW (11.0-16.0) % Plt Count (160-400) X10*3/uL MPV (9.4-12.4) fL Immature Gran % (Auto) (0.0-0.4) % Neut % (Auto) (45-73) % Lymph % (Auto) (20-40) % [place] % (Auto) (2-11) % Eos % (Auto) (0-4) % Baso % (Auto) (0-2) % Lymph # (Auto) (1.2-4.9) X10*3/uL [place] # (Auto) (0.1-1.2) X10*3/uL Eos # (Auto) (0.0-0.4) X10*3/uL Baso # (Auto) (0.0-0.2) X10*3/uL Abs Immat Gran (auto) (0.00-0.03) X10*3/uL Absolute Neuts (auto) (2.0-8.3) X10*3/uL Absolute Nucleated RBC (0.0-0.012) X10*3/uL Nucleated RBC % (auto) (0.0-0.2) /100WBC Smear Tech's Comments PT (10.8-13.0) SEC INR (0.9-1.1) APTT (24.1-38.0) SEC D-Dimer NG/ML VBG pH 7.39 (7.32-7.43) VBG pCO2 32 mmHg VBG pO2 76 mmHg VBG HCO3 20 mmol/L VBG O2 Saturation 94.0 % VBG Base Excess -3.9 mmol/L Sodium (135-145) mmol/L Potassium (3.3-5.1) mmol/L Chloride (96-108) mmol/L Carbon Dioxide (22-29) mmol/L Anion Gap (12-20) BUN (9-16) mg/dL Creatinine (0.5-1.4) mg/dL Estim Creat Clear Calc Estimated GFR Random Glucose (60-115) mg/dL Lactic Acid (0.5-2.0) mmol/L Calcium (8.4-10.2) mg/dL Ferritin (20-250) ng/mL Total Bilirubin (0.0-1.0) mg/dL Direct Bilirubin (0.0-0.5) mg/dL AST (5-37) U/L ALT (0-40) U/L Alkaline Phosphatase (39-117) U/L Troponin I High Sens (<3.5-35.0) ng/L C-Reactive Protein (< or = 0.50) mg/dL Total Protein (6.5-8.0) g/dL Albumin (3.5-5.0) g/dL Procalcitonin ng/mL ECG Data Attestation: I personally reviewed and interpreted this ECG as follows: Interpretation: Normal sinus rhythm with heart rate 89 beats per minute LVH normal axis no acute ST T wave changes no acute ischemia Discharge Plan Discharge Prescriptions: No Action pantoprazole 40 mg tablet,delayed release (DR/EC) 40 mg PO DAILY Qty: 90 RF: 3 furosemide [Lasix] 20 mg tablet 20 mg PO Q OTHER DAY 60 Days Qty: 30 RF: 1 Lantus U-100 Insulin 100 unit/mL Solution 12 unit subcut BEDTIME Qty: 10 RF: 0 guaifenesin [Mucinex] 600 mg Tablet Extended Release 12hr 600 mg PO BID PRN (Reason: cough) Qty: 30 RF: 0 prednisone 20 mg tablet 40 mg PO DAILY Qty: 12 RF: 0 benzonatate [Tessalon Perles] 100 mg capsule 100 mg PO TID PRN (Reason: cough) Qty: 30 RF: 0 alprazolam 0.5 mg tablet 0.5 mg PO Q6H PRN (Reason: Anxiety) RF: 0 ascorbic acid (vitamin C) [Vitamin C] 500 mg Tablet,Chewable 500 mg PO DAILY RF: 0 nystatin 100,000 unit/mL suspension 4 ml PO BID RF: 0 atorvastatin 20 mg tablet 20 mg PO BEDTIME RF: 0 montelukast 10 mg tablet 10 mg PO BEDTIME RF: 0 cholecalciferol (vitamin D3) 25 mcg (1,000 unit) Tablet 25 mcg PO DAILY RF: 0 diltiazem HCl 180 mg capsule,extended release 24hr 180 mg PO BID 90 Days Qty: 180 RF: 2 sucralfate 1 gram tablet 1 g PO BID Qty: 180 RF: 3 albuterol sulfate 90 mcg/actuation HFA aerosol inhaler 90 mcg inhalation Q6-8H PRN (Reason: Wheezing) RF: 0 fluticasone propion-salmeterol 250-50 mcg/dose blister with device 1 inh inhalation BID RF: 0 losartan 50 mg tablet 50 mg PO DAILY RF: 0 insulin lispro 100 unit/mL solution 5 unit subcut TIDAC RF: 0 fluticasone propionate 50 mcg/actuation spray,suspension 1 spray intranasal DAILY RF: 0 ferrous sulfate 325 mg (65 mg iron) tablet,delayed release (DR/EC) 325 mg PO DAILY RF: 0
[2020-07-31 14:37] LABS: Basophils Percent Auto 0.1 % (0-2); Hematocrit 27.1 % (42-52); Imm Gran Abs Auto 0.16 X10*3/uL (0.00-0.03); Imm Gran Pct Auto 1.3 % (0.0-0.4); Lymphocytes Absolute Auto 0.4 X10*3/uL (1.2-4.9); Lymphocytes Percent Auto 3.3 % (20-40); MANUAL DIFF FLAG SCAN; Mean Corpuscular HGB Conc 33.2 g/dl (31.0-36.0); Mean Corpuscular Volume 96.4 fL (80-98); Mean Platelet Volume 10.6 fL (9.4-12.4); Monocytes Absolute Auto 0.5 X10*3/uL (0.1-1.2); Monocytes Percent Auto 3.9 % (2-11); Neutrophils Absolute Auto 10.9 X10*3/uL (2.0-8.3); Neutrophils Percent Auto 91.4 % (45-73); Platelet Count 293 X10*3/uL (160-400); Red Blood Count 2.81 X10*6/uL (4.60-5.80); Red Cell Distribution Width 13.8 % (11.0-16.0); SCAN SMEAR FLAG 1; White Blood Count 11.9 X10*3/uL (4.8-10.8)
[2020-07-31 14:40] LABS: Base Excess VBG -3.9 mmol/L; HCO3 VBG 20 mmol/L; PO2 VBG 76 mmHg
[2020-07-31 14:41] LABS: PCO2 VBG 32 mmHg; pH VBG 7.39 (7.32-7.43)
[2020-07-31 14:43] LABS: INTERNATIONAL NORM RATIO 0.9 (0.9-1.1); Prothrombin Time 10.7 SEC (10.8-13.0)
[2020-07-31] MEDS: Albuterol Sulfate (0.083%) 2.5 MG/3 ML VIAL.NEB 5 MG INHALE (14:45)
[2020-07-31] MEDS: cefTRIAXone sodium 1 GM in 0.9 % Sodium Chloride 50 ML IV (14:45)
[2020-07-31 14:46] LABS: D Dimer 437 NG/ML; Partial Thromboplastin Time 28.5 SEC (24.1-38.0)
[2020-07-31] MEDS: Albuterol/Iprat 2.5/0.5MG 3 ML AMPUL.NEB INHALE (14:46)
[2020-07-31 15:01] LABS: Lactic Acid 3.5 mmol/L (0.5-2.0)
[2020-07-31 15:09] LABS: Alanine Aminotransferase 11 U/L (0-40); Albumin Level 3.7 g/dL (3.5-5.0); Alkaline Phosphatase 71 U/L (39-117); Anion Gap 19 (12-20); Aspartate Amino Transferase 14 U/L (5-37); Bilirubin Direct < 0.2 mg/dL (0.0-0.5); Bilirubin Total 0.2 mg/dL (0.0-1.0); Blood Urea Nitrogen 44 mg/dL (9-16); C Reactive Protein 1.69 mg/dL (< or = 0.50); Calcium 8.8 mg/dL (8.4-10.2); Carbon Dioxide 18 mmol/L (22-29); Chloride 111 mmol/L (96-108); Creatinine Clr Calc Pharmacy 40.1; Estimated Glomerular Filt Rate 48; Glucose Random 221 mg/dL (60-115); Potassium 4.9 mmol/L (3.3-5.1); Sodium 143 mmol/L (135-145); Troponin-I High Sensitivity 12.3 ng/L (<3.5-35.0)
[2020-07-31 15:11] LABS: SLIDE REVIEW VERIFIED
[2020-07-31 15:26] LABS: Procalcitonin 0.06 ng/mL
[2020-07-31] MEDS: Doxycycline Hyclate 100 MG in 0.9 % Sodium Chloride 250 ML 166.67 MG IV (15:29)
[2020-07-31 15:31] LABS: Ferritin 364 ng/mL (20-250)
--- NOTE | 2020-07-31 16:12 | PC.NURSE ---
pt changed to dry scan d/t tough stick, second set of cultures being sent d/t same
[2020-07-31 16:34] LABS: Reflex Lactate? Lactic Acid Added
--- NOTE | 2020-07-31 16:49 | PM.EVENT ---
Event Note Date of Service: 07/31/20 Event Note: Patient seen and examined. Case discussed with LESLIE Singletary. Agree with her history and physical + plan as documented above This is a 79-year-old male with COPD, on chronic prednisone at 5 mg daily who reports that he tested positive on 07/25/2019 for COVID(as part of routine screening, no symptoms at this time). He reports that with he was discharged back home the next day and on 07/27/2019 was called with a positive report so he presented to the emergency room. At that time there was no hypoxia and he was deemed stable so he was discharged home with 40 mg of prednisone. He reports that since then his shortness of breath as significantly worsened as of this morning. Reports worsening of his baseline cough and shortness of breath. In the ED, he was noted to be tachypneic and was placed on 4 L. Was given dose of steroids and empiric antibiotics and admission was requested. Assessment and plan 79-year-old male with COPD, diabetes, chronic prednisone use who presents to the hospital with worsening respiratory symptoms and is diagnosed with acute respiratory failure with hypoxia secondary to COVID-19 pneumonia. IV Decadron ID consult to see if he qualifies for remdesivir Remainder of H&P
--- NOTE | 2020-07-31 17:08 | PM.IMHP ---
History of Present Illness Date of Service: 07/31/20 Chief Complaint: shortness of breath This is an 79-year-old male with history of asthma/COPD who presents to the emergency department with shortness of breath. He was discharged from the hospital on July 02 and sent to [facility]. His last covid test at rehab was done last Tuesday 07/25. He was called the following day and told it was positive. He was seen in the emergency department on 07/27. At that time his chest x-ray was unremarkable and he was not requiring oxygen therefore he was sent home with steroid taper. Returns to the emergency room today with increasing shortness of breath worsening since this morning. In addition he reports an increase from his baseline cough. He was noted to be tachypneic and hypoxic on arrival and was placed on 4 L of supplemental oxygen. Glass opacities consistent with COVID pneumonia. ADALBERTO with creatinine 1.42 and lactic acid 3.5. Given hypoxia the decision was made to admit him for further management. Review of Systems Review of Systems: Yes all other systems are reviewed and are negative Constitutional: Constitutional: Denies chills and Denies fever(s) Cardiovascular: Cardiovascular: Denies chest pain and Reports dyspnea Respiratory: Respiratory: Reports cough and Reports dyspnea Gastrointestinal: Gastrointestinal: Denies abdominal pain [facility] Medical History Allergic rhinitis Anxiety Bronchitis Cancer of skin of right ear Cataracts, bilateral Cholelithiasis Chronic kidney disease (CKD) stage G2/A1, mildly decreased glomerular filtration rate (GFR) between 60-89 mL/min/1.73 square meter and albuminuria creatinine ratio less than 30 mg/g COPD (chronic obstructive pulmonary disease) Coronary artery disease Erectile dysfunction GERD (gastroesophageal reflux disease) Hx of hiatal hernia Hypertension Osteoporosis Peripheral vascular disease PMR (polymyalgia rheumatica) Functional capacity: independent ambulation Family History Family/Other Cancer Surgical History Hx of appendectomy S/P triple vessel bypass Social History Household Members: Spouse Housing: House Alcohol intake: never Smoking Status: Former smoker Packs Per Day: 1 Smoked in Last 30 Days: No Advance Directives: Yes Advance Directives Information Provided: No (ISOLATION) Advance Directives on File: Yes Advance Directives Date on File: 07/03/20 service: No Current occupational status: retired Meds Allergies Allergy/AdvReac Type Severity Reaction Status Date / Time ELLEN Inhibitors Allergy Severe DIFFICULTY Verified 07/31/20 13:22 [ELLEN INHIBITORS] BREATHING egg [EGGS] Allergy Severe DIFFICULTY Verified 07/31/20 13:22 BREATHING nut - unspecified [nut] Allergy Severe ANAPHYLAXIS Verified 07/31/20 13:22 acetic acid [VINEGAR] Allergy Unknown UNKNOWN Verified 07/31/20 13:22 hydrochlorothiazide Allergy Unknown Unknown Verified 07/31/20 13:22 mold Allergy Unknown SHORTNESS Verified 07/31/20 13:22 OF BREATH niacin [From SIMCOR] Allergy Unknown SHORTNESS Verified 07/31/20 13:22 OF BREATH penicillin V Allergy Unknown throat Verified 07/31/20 13:22 swelling simvastatin Allergy Unknown Unknown Verified 07/31/20 13:22 Sulfa (Sulfonamide Allergy Unknown SWELLING Verified 07/31/20 13:22 Antibiotics) [SULFA (SULFONAMIDE ANTIBIOTICS)] tramadol Allergy Unknown Unknown Verified 07/31/20 13:22 wheat Allergy Unknown UNKNOWN Verified 07/31/20 13:22 corn syrup [CORN SYRUP] AdvReac Mild N/D Verified 07/31/20 13:22 lactose [LACTOSE] AdvReac Mild N/V/D Verified 07/31/20 13:22 FLU VACCINE Allergy Unknown Difficulty Uncoded 07/31/20 13:22 Breathing Active Medications: Current Medications Generic Name Dose Route Start Last Admin Trade Name Melquiadesq PRN Reason Stop Dose Admin Remdesivir 200 mg/ Sodium 210 mls @ 105 mls/hr 07/31/20 18:00 Chloride IV 07/31/20 19:59 ONCE@1800 [facility] Remdesivir 100 mg/ Sodium 250 mls @ 125 mls/hr 08/01/20 18:00 Chloride IV 08/04/20 19:59 DAILY@1800 [facility] Pharmacy Consult 1 each 07/31/20 15:17 Consult Rx Perform Med Rec MISCELLANE ONCE PRN Consult order Home Medications Medication Instructions Recorded Confirmed Last Taken Type albuterol sulfate 90 mcg/actuation 90 mcg INHALATION Q6-8H PRN 03/17/20 07/31/2021 History aerosol inhaler ferrous sulfate 325 mg (65 mg 325 mg PO DAILY 03/17/20 07/31/20 07/31/20 History iron) tablet,delayed release fluticasone 250 mcg-salmeterol 50 1 inh INHALATION BID 03/17/20 07/31/20 07/31/20 History mcg/dose blistr powdr for inhalation fluticasone propionate 50 1 spray INTRANASAL DAILY 03/17/20 07/31/20 07/30/20 History mcg/actuation nasal spray,suspension insulin lispro 100 unit/mL 5 unit SUBCUT TIDAC 03/17/20 07/31/20 07/31/20 History subcutaneous solution losartan 50 mg tablet 50 mg PO DAILY 03/17/20 07/31/20 07/31/20 History alprazolam 0.5 mg PO Q6H PRN 07/31/20 07/31/20 07/31/20 History ascorbic acid (vitamin C) [Vitamin 500 mg PO DAILY 07/31/20 07/31/20 07/31/20 History C] atorvastatin 20 mg PO BEDTIME 07/31/20 07/31/20 07/30/20 History cholecalciferol (vitamin D3) 25 mcg PO DAILY 07/31/20 07/31/20 07/31/20 History montelukast 10 mg PO BEDTIME 07/31/20 07/31/20 07/30/20 History nystatin 4 ml PO BID 07/31/20 07/31/20 07/31/20 History Physical Exam Vital Signs and Narrative: Vital Signs: Last Vital Signs Temp 97.5 F 07/31/20 16:52 Pulse 79 07/31/20 16:52 Resp 19 07/31/20 16:52 BP 139/57 L 07/31/20 16:52 Pulse Ox 93 07/31/20 16:52 Body Mass Index 25.2 Const: General: alert and awake Nutritional Appearance: well nourished Orientation/consciousness: patient oriented x3 HENMT: Head: Yes normocephalic and Yes atraumatic Eyes: Sclerae: sclerae normal Chest: Chest palpation & inspection: normal inspection of the chest Resp: Effort & Inspection: tachypneic Cardio: Rate: regular rate Rhythm: regular rhythm GI: Palpation (GI): Soft to palpation and nontender Skin: General skin exam: no rashes or lesions noted Neuro: General: patient oriented x3 Cranial nerves: Yes CN's II-XII intact bilaterally and Yes Bilaterally intact EOM present Extrem: General: Yes normal to inspection Results Labs CBC and Chem 7: 07/31/20 14:25 07/31/20 14:25 Labs: Laboratory Results - last 24 hr 07/31/20 07/31/20 07/31/20 14:25 14:25 14:25 MCV 96.4 MCH 32.0 MCHC 33.2 RDW 13.8 Plt Count 293 MPV 10.6 Immature Gran % (Auto) 1.3 H Neut % (Auto) 91.4 H Lymph % (Auto) 3.3 L [place] % (Auto) 3.9 Eos % (Auto) 0.0 Baso % (Auto) 0.1 Lymph # (Auto) 0.4 L [place] # (Auto) 0.5 Eos # (Auto) 0.0 Baso # (Auto) 0.0 Abs Immat Gran (auto) 0.16 H Absolute Neuts (auto) 10.9 H Absolute Nucleated RBC 0.000 Nucleated RBC % (auto) 0.0 Smear Tech's Comments VERIFIED PT 10.7 L INR 0.9 APTT 28.5 D-Dimer 437 VBG pH VBG pCO2 VBG pO2 VBG HCO3 VBG O2 Saturation VBG Base Excess Anion Gap 19 Estim Creat Clear Calc 40.1 Estimated GFR 48 Random Glucose 221 H D Lactic Acid Calcium 8.8 Ferritin 364 H Total Bilirubin 0.2 Direct Bilirubin < 0.2 AST 14 ALT 11 Alkaline Phosphatase 71 Troponin I High Sens C-Reactive Protein 1.69 H Total Protein 6.0 L Albumin 3.7 Procalcitonin 07/31/20 07/31/20 07/31/20 14:25 14:25 14:25 MCV MCH MCHC RDW Plt Count MPV Immature Gran % (Auto) Neut % (Auto) Lymph % (Auto) [place] % (Auto) Eos % (Auto) Baso % (Auto) Lymph # (Auto) [place] # (Auto) Eos # (Auto) Baso # (Auto) Abs Immat Gran (auto) Absolute Neuts (auto) Absolute Nucleated RBC Nucleated RBC % (auto) Smear Tech's Comments PT INR APTT D-Dimer VBG pH VBG pCO2 VBG pO2 VBG HCO3 VBG O2 Saturation VBG Base Excess Anion Gap Estim Creat Clear Calc Estimated GFR Random Glucose Lactic Acid 3.5 H* Calcium Ferritin Total Bilirubin Direct Bilirubin AST ALT Alkaline Phosphatase Troponin I High Sens 12.3 D C-Reactive Protein Total Protein Albumin Procalcitonin 0.06 07/31/20 14:25 MCV MCH MCHC RDW Plt Count MPV Immature Gran % (Auto) Neut % (Auto) Lymph % (Auto) [place] % (Auto) Eos % (Auto) Baso % (Auto) Lymph # (Auto) [place] # (Auto) Eos # (Auto) Baso # (Auto) Abs Immat Gran (auto) Absolute Neuts (auto) Absolute Nucleated RBC Nucleated RBC % (auto) Smear Tech's Comments PT INR APTT D-Dimer VBG pH 7.39 VBG pCO2 32 VBG pO2 76 VBG HCO3 20 VBG O2 Saturation 94.0 VBG Base Excess -3.9 Anion Gap Estim Creat Clear Calc Estimated GFR Random Glucose Lactic Acid Calcium Ferritin Total Bilirubin Direct Bilirubin AST ALT Alkaline Phosphatase Troponin I High Sens C-Reactive Protein Total Protein Albumin Procalcitonin Imaging Radiologist's Impressions: Impressions Chest CT 07/31/20 15:21 IMPRESSION: 1. Patchy bilateral groundglass opacities greater on right, consistent with history COVID pneumonia. 2. No confluent lobar or segmental airspace consolidation or effusion. Assessment and Plan (1) COVID-19: Status: Acute This is an 79-year-old male with a history of steroid dependent COPD, anxiety, diabetes, polymyalgia rheumatica, PUD among others, recently diagnosed with COVID-19 here with shortness of breath and hypoxia Acute respiratory failure with hypoxia Pneumonia secondary to COVID-19 Viral sepsis -IV dexamethasone -supplemental oxygen as needed -ID consult to evaluate need for remdesivir ADALBERTO Creatinine 1.42 Hold Lasix, losartan Monitor renal function closely Diabetes -continue home dose of Lantus -SSI, POCs Anxiety Continue alprazolam Hyperlipidemia Continue statin Polymyalgia rheumatica Will be on dexamethasone, hold prednisone Hypertension Continue diltiazem, hold losartan, Lasix for ADALBERTO PUD Continue sucralfate, ppi DVT prophylaxis-Lovenox Code status-full code This case was discussed with Dr. Guadalupe
[2020-07-31 17:49] LABS: ~Lactic Acid-LAB USE ONLY 3.8 mmol/L (0.5-2.0)
[2020-07-31] MEDS: Remdesivir 200 MG in 0.9 % Sodium Chloride 210 ML 105 MG IV (18:12)
[2020-07-31 19:20] LABS: Reflex Lactate? 2 Y
[2020-07-31] MEDS: Enoxaparin Sodium 40 MG/0.4 ML SYRINGE SUBCUT (19:28)
--- NOTE | 2020-07-31 20:19 | PC.NURSE ---
Called IM for report at 2018. Waiting for callback from nurse.
--- NOTE | 2020-07-31 21:25 | PC.NURSE ---
Pt difficult stick- several attempts from multiple staff members to get lactic acid
[2020-07-31 21:55] LABS: Glucose, Whole Blood 361 mg/dL (60-115)
[2020-07-31 21:58] LABS: ~Lactic Acid-LAB USE ONLY 3.1 mmol/L (0.5-2.0)
[2020-07-31] MEDS: Atorvastatin Calcium 20 MG TABLET PO (21:59)
[2020-07-31] MEDS: dilTIAZem HCL CD 180 MG CAP.ER.24H PO (21:59)
[2020-07-31] MEDS: Sucralfate 1 GM TABLET PO (21:59)
[2020-07-31] MEDS: Insulin Glargine,Hum.rec.anlog 100 UNIT/ML 10 ML VIAL 12 UNIT SUBCUT (21:59)
[2020-07-31] MEDS: Montelukast Sodium 10 MG TABLET PO (21:59)
[2020-07-31] MEDS: Insulin Lispro 100 UNIT/ML 3 ML VIAL SUBCUT (22:00)
[2020-07-31] MEDS: guaiFENesin LA 600 MG TAB.ER.12H PO (22:08)
[2020-07-31] MEDS: ALPRAZolam 0.5 MG TABLET PO (22:19)
[2020-08-01] VITALS (9 sets, daily range): BP systolic 154–177; BP diastolic 65–84; PULSE 72–77; RESP 18–20; TEMP 36.1–37; O2SAT 90–96
[2020-08-01 00:19] LABS: Glucose, Whole Blood 319 mg/dL (60-115)
[2020-08-01 00:19] LABS: Glucose, Whole Blood 374 mg/dL (60-115)
[2020-08-01] MEDS: 0.9 % Sodium Chloride Flush 3 ML SYRINGE IVFLUSH ×4 (00:26→20:32)
[2020-08-01] MEDS: Omeprazole 20 MG CAPSULE.DR PO (05:47)
[2020-08-01] MEDS: ALPRAZolam 0.5 MG TABLET PO ×3 (05:47→20:31)
[2020-08-01 07:05] LABS: Basophils Percent Auto 0.2 % (0-2); Hematocrit 29.4 % (42-52); Hemoglobin 9.4 g/dl (14.0-18.0); Imm Gran Pct Auto 1.8 % (0.0-0.4); Lymphocytes Absolute Auto 0.7 X10*3/uL (1.2-4.9); Lymphocytes Percent Auto 6.2 % (20-40); MANUAL DIFF FLAG SCAN; Mean Corpuscular Hemoglobin 30.8 pg (27.0-33.0); Mean Corpuscular Volume 96.4 fL (80-98); Mean Platelet Volume 11.1 fL (9.4-12.4); Monocytes Absolute Auto 0.5 X10*3/uL (0.1-1.2); Monocytes Percent Auto 4.7 % (2-11); Neutrophils Absolute Auto 9.6 X10*3/uL (2.0-8.3); Neutrophils Percent Auto 87.1 % (45-73); Platelet Count 301 X10*3/uL (160-400); Red Blood Count 3.05 X10*6/uL (4.60-5.80); Red Cell Distribution Width 13.7 % (11.0-16.0); SCAN SMEAR FLAG 1
[2020-08-01 07:29] LABS: Anion Gap 23 (12-20); Blood Urea Nitrogen 43 mg/dL (9-16); Calcium 8.6 mg/dL (8.4-10.2); Carbon Dioxide 14 mmol/L (22-29); Chloride 112 mmol/L (96-108); Creatinine Clr Calc Pharmacy 49.5; Estimated Glomerular Filt Rate > 60; Glucose Random 190 mg/dL (60-115); Potassium 4.7 mmol/L (3.3-5.1); Sodium 144 mmol/L (135-145)
[2020-08-01] MEDS: Fluticasone/Vilanterol 200/25 BLST.W.DEV 1 PUFF INHALE (07:39)
[2020-08-01 08:00] LABS: Glucose, Whole Blood 185 mg/dL (60-115)
[2020-08-01 08:06] LABS: Base Excess VBG -1.7 mmol/L; HCO3 VBG 22 mmol/L; PCO2 VBG 35 mmHg; PO2 VBG 50 mmHg
[2020-08-01 08:29] LABS: SLIDE REVIEW VERIFIED
[2020-08-01] MEDS: Insulin Lispro 100 UNIT/ML 3 ML VIAL SUBCUT ×4 (08:33→21:44)
[2020-08-01] MEDS: Sucralfate 1 GM TABLET PO ×2 (08:34→20:31)
[2020-08-01] MEDS: Ferrous Sulfate 324 MG TABLET.DR PO (08:34)
[2020-08-01] MEDS: Fluticasone Propionate Nasal 16 GM SPRAY 1 SPRAY NOSTRIL-B (08:34)
[2020-08-01] MEDS: dilTIAZem HCL CD 180 MG CAP.ER.24H PO ×2 (08:34→20:31)
[2020-08-01] MEDS: Ascorbic Acid 500 MG TABLET PO (08:34)
[2020-08-01] MEDS: Cholecalciferol (Vitamin D3) 25 MCG TABLET PO (08:34)
--- NOTE | 2020-08-01 09:20 | MHC.CM.PN ---
Patient is on the Covid Unit; CM spoke with /HCP/Valerie @ [phone]. Patient lives in a house with his and he uses a walker to assist with mobility. Patient was recently at [facility] for [facility] and the goal for dc is to return home and resume [facility]. CM has initiated and will follow for dc planning. IMM addressed with Valerie and original will be mailed out certified letter to her and a copy has been placed on the chart. PCP is Dr. Lorna Rollins. Patient's Daughter/Lindsay Burrell is involved and supportive.
[2020-08-01 12:36] LABS: Glucose, Whole Blood 191 mg/dL (60-115)
[2020-08-01 14:03] LABS: Anion Gap 17 (12-20); Blood Urea Nitrogen 43 mg/dL (9-16); Calcium 8.9 mg/dL (8.4-10.2); Carbon Dioxide 21 mmol/L (22-29); Chloride 108 mmol/L (96-108); Estimated Glomerular Filt Rate > 60; Glucose Random 177 mg/dL (60-115); Potassium 4.6 mmol/L (3.3-5.1); Sodium 141 mmol/L (135-145)
--- NOTE | 2020-08-01 14:44 | HO.PM.IMPN ---
Subjective Subjective Date of Service: 08/01/20 Interval History: seen and examined reports anxiety + cough. reports he does feel better compared to yesterday. control room supervisor permission to speak with Daughter RINA General - no fevers or chills Cardiovascular - no chest pain Respiratory - +cough, +sob Abdominal- no abdominal pain, nausea, vomiting, diarrhea Physical Exam Vital Signs: Vital Signs: Last Vital Signs Temp 97.7 F 08/01/20 12:00 Pulse 76 08/01/20 12:00 Resp 20 08/01/20 12:00 BP 156/75 H 08/01/20 08:34 Pulse Ox 91 L 08/01/20 12:00 Body Mass Index 27.3 Const: General: alert and awake Nutritional Appearance: well nourished Orientation/consciousness: patient oriented x3 HENMT: Head: Yes normocephalic and Yes atraumatic Eyes: Sclerae: sclerae normal Chest: Chest palpation & inspection: normal inspection of the chest Resp: Effort & Inspection: able to speak in complete sentences, Actively coughing Quality: dry and tachypneic (with expersion) Cardio: Rate: regular rate Rhythm: regular rhythm GI: Palpation (GI): Soft to palpation and nontender Skin: General skin exam: no rashes or lesions noted Neuro: General: patient oriented x3 Cranial nerves: Yes CN's II-XII intact bilaterally and Yes Bilaterally intact EOM present Extrem: General: Yes normal to inspection Objective Data Current Medications Generic Name Dose Route Start Last Admin Trade Name Freq PRN Reason Stop Dose Admin Acetaminophen 650 mg 07/31/20 17:56 Acetaminophen 325 Mg Tablet PO Q6H PRN Pain, Mild (Pain Scale 1-3) Albuterol Sulfate 2 puff 07/31/20 17:56 Albuterol Sulfate 90 Mcg 8 Gm Inhaler INHALE RQ4H PRN Shortness of Breath Alprazolam 0.5 mg 07/31/20 17:56 08/01/20 14:33 Alprazolam 0.5 Mg Tablet PO 0.5 mg Q6H PRN Administration Anxiety Ascorbic Acid 500 mg 08/01/20 09:00 08/01/20 08:34 Ascorbic Acid 500 Mg Tablet PO 500 mg DAILY MARIAM Administration Atorvastatin Calcium 20 mg 07/31/20 21:00 07/31/20 21:59 Atorvastatin Calcium 20 Mg Tablet PO 20 mg BEDTIME MARIAM Administration Benzonatate 100 mg 07/31/20 17:56 Benzonatate 100 Mg Capsule PO TID PRN cough Dexamethasone Sodium Phosphate 6 mg 08/01/20 09:00 08/01/20 08:34 Dexamethasone Sod Phosphate/Pf 10 Mg/Ml Vial IVPUSH 6 mg DAILY MARIAM Administration Diltiazem HCl 180 mg 07/31/20 21:00 08/01/20 08:34 Diltiazem Hcl Cd 180 Mg Cap.Er.24h PO 180 mg BID MARIAM Administration Protocol Docusate Sodium 100 mg 07/31/20 17:56 Docusate Sodium 100 Mg Capsule PO DAILY PRN Constipation Enoxaparin Sodium 40 mg 07/31/20 20:00 07/31/20 19:28 Enoxaparin Sodium 40 Mg/0.4 Ml Syringe SUBCUT 40 mg Q24H MARIAM Administration Ferrous Sulfate 324 mg 08/01/20 09:00 08/01/20 08:34 Ferrous Sulfate 324 Mg Tablet.Dr PO 324 mg DAILY MARIAM Administration Fluticasone Propionate 1 spray 08/01/20 09:00 08/01/20 08:34 Fluticasone Propionate Nasal 16 Gm Mobile NOSTRIL-B 1 spray DAILY [facility] Administration Fluticasone/Vilanterol 1 puff 08/01/20 08:00 08/01/20 07:39 Fluticasone/Vilanterol 200/25 Blst.W.Dev INHALE 1 puff RDAILY [facility] Administration Guaifenesin 600 mg 07/31/20 17:56 07/31/20 22:08 Guaifenesin La 600 Mg Tab.Er.12h PO 600 mg BID PRN Administration cough Remdesivir 100 mg/ Sodium 250 mls @ 125 mls/hr 08/01/20 18:00 Chloride IV 08/04/20 19:59 DAILY@1800 [facility] Insulin Glargine 12 unit 07/31/20 21:00 07/31/20 21:59 Insulin Glargine,Hum.Rec.Anlog 100 Unit/Ml 10 Ml Vial SUBCUT 12 unit BEDTIME [facility] Administration Insulin Human Lispro 0 unit 07/31/20 21:00 08/01/20 12:44 Insulin Lispro 100 Unit/Ml 3 Ml Vial SUBCUT 2 unit QIDACHS [facility] Administration Protocol Montelukast Sodium 10 mg 07/31/20 21:00 07/31/20 21:59 Montelukast Sodium 10 Mg Tablet PO 10 mg BEDTIME MARIAM Administration Omeprazole 20 mg 08/01/20 06:30 08/01/20 05:47 Omeprazole 20 Mg Capsule. PO 20 mg DAILY@0630 MARIAM Administration Ondansetron HCl 4 mg 07/31/20 17:56 Ondansetron Hcl 4 Mg/2 Ml Vial IVPUSH Q8H PRN Nausea and Vomiting Pharmacy Consult 1 each 07/31/20 15:17 Consult Rx Perform Med Rec MISCELLANE ONCE PRN Consult order Sodium Chloride 3 ml 08/01/20 00:00 08/01/20 05:53 0.9 % Sodium Chloride Flush 3 Ml Syringe IVFLUSH 3 ml QSHIFT MARIAM Administration Sucralfate 1 gm 07/31/20 21:00 08/01/20 08:34 Sucralfate 1 Gm Tablet PO 1 gm BID MARIAM Administration Vitamin D 25 mcg 08/01/20 09:00 08/01/20 08:34 Cholecalciferol (Vitamin D3) 25 Mcg Tablet PO 25 mcg DAILY MARIAM Administration Labs CBC & Chem 7: 08/01/20 06:18 08/01/20 13:23 Assessment and Plan (1) COVID-19: Status: Acute Assessment and Plan: This is an 79-year-old male with a history of steroid dependent COPD, anxiety, diabetes, polymyalgia rheumatica, PUD among others, recently diagnosed with COVID-19 here with shortness of breath and hypoxia 1.COVID 19 causing acute resp. failure with hypoxia and viral sepsis was on 4L upon admission, now tolerating 2L continue decadron day 07/30; Remdesivir 2/5 ID input appreciated 2. ADALBERTO with metabolic acidosis resolved hold lasix/arb today and if stable, restart next 1-2d 3. DM uncontrolled - worsened by steroid use ISS + Lantus uptitrate as needed 4. Hyperlipidemia Continue statin 5. Polymyalgia rheumatica Will be on dexamethasone, hold prednisone 8. Hypertension Continue diltiazem resume arb is SCr remains stable tomorrow 9. PUD Continue sucralfate, ppi 10. Severe anxiety prn xanax and non-pharmacological methods reassured him about his condition Full Code DVT pptx d/w the case with his daughter (after he gave permission to do so) Susie @ [phone]
[2020-08-01] MEDS: guaiFEN/Codeine SF 200/20/10ML 10 ML LIQUID 5 ML PO ×2 (15:10→20:32)
--- NOTE | 2020-08-01 16:36 | W.PM.IDCN ---
History of Present Illness Data of Consult Service Date: 08/01/20 Requesting physician: Lamonte Guadalupe Primary Care Provider: Unknown Physician HPI Reason for consult: shortness of breath,COVID He presents with shortness of breath between 06/28 and present Patient had COPD and went to Rehab He is COVID positive now Review of Systems Review of Systems: Yes all other systems are reviewed and are negative [facility] Past Medical History Medical History Allergic rhinitis Anxiety Bronchitis Cancer of skin of right ear Cataracts, bilateral Cholelithiasis Chronic kidney disease (CKD) stage G2/A1, mildly decreased glomerular filtration rate (GFR) between 60-89 mL/min/1.73 square meter and albuminuria creatinine ratio less than 30 mg/g COPD (chronic obstructive pulmonary disease) Coronary artery disease Erectile dysfunction GERD (gastroesophageal reflux disease) Hx of hiatal hernia Hypertension Osteoporosis Peripheral vascular disease PMR (polymyalgia rheumatica) Functional capacity: independent ambulation Family History Family History Family/Other Cancer Surgical History Surgical History Hx of appendectomy S/P triple vessel bypass Social History Social History Household Members: Spouse Housing: House Alcohol intake: never Smoking Status: Former smoker Packs Per Day: 1 Smoked in Last 30 Days: No Use of substances other than those prescribed or required for medical reasons: No Currently Displaying Signs/Symptoms of Drug Intoxication Withdrawal: No Have you been hit, kicked, punched, or otherwise hurt by someone within the past year? If so, by whom?: No Do you feel safe in your current relationship?: No Is there a partner from a previous relationship who is making you feel unsafe now?: No Are you made to feel afraid or neglected: No Advance Directives: Yes Advance Directives Information Provided: No (ISOLATION) Advance Directives on File: Yes Advance Directives Date on File: 07/03/20 Do you have thoughts of harming others: None Do you have a plan to hurt others: No Plan Recently lost weight without trying: No service: Yes Current occupational status: retired Meds Allergies Allergy/AdvReac Type Severity Reaction Status Date / Time ELLEN Inhibitors Allergy Severe DIFFICULTY Verified 07/31/20 13:22 [ELLEN INHIBITORS] BREATHING egg [EGGS] Allergy Severe DIFFICULTY Verified 07/31/20 13:22 BREATHING nut - unspecified [nut] Allergy Severe ANAPHYLAXIS Verified 07/31/20 13:22 acetic acid [VINEGAR] Allergy Unknown UNKNOWN Verified 07/31/20 13:22 hydrochlorothiazide Allergy Unknown Unknown Verified 07/31/20 13:22 mold Allergy Unknown SHORTNESS Verified 07/31/20 13:22 OF BREATH niacin [From SIMCOR] Allergy Unknown SHORTNESS Verified 07/31/20 13:22 OF BREATH penicillin V Allergy Unknown throat Verified 07/31/20 13:22 swelling simvastatin Allergy Unknown Unknown Verified 07/31/20 13:22 Sulfa (Sulfonamide Allergy Unknown SWELLING Verified 07/31/20 13:22 Antibiotics) [SULFA (SULFONAMIDE ANTIBIOTICS)] tramadol Allergy Unknown Unknown Verified 07/31/20 13:22 wheat Allergy Unknown UNKNOWN Verified 07/31/20 13:22 corn syrup [CORN SYRUP] AdvReac Mild N/D Verified 07/31/20 13:22 lactose [LACTOSE] AdvReac Mild N/V/D Verified 07/31/20 13:22 FLU VACCINE Allergy Unknown Difficulty Uncoded 07/31/20 13:22 Breathing Active Medications: Current Medications Generic Name Dose Route Start Last Admin Trade Name Freq PRN Reason Stop Dose Admin Acetaminophen 650 mg 07/31/20 17:56 Acetaminophen 325 Mg Tablet PO Q6H PRN Pain, Mild (Pain Scale 1-3) Albuterol Sulfate 2 puff 07/31/20 17:56 Albuterol Sulfate 90 Mcg 8 Gm Inhaler INHALE RQ4H PRN Shortness of Breath Alprazolam 0.5 mg 07/31/20 17:56 08/01/20 14:33 Alprazolam 0.5 Mg Tablet PO 0.5 mg Q6H PRN Administration Anxiety Ascorbic Acid 500 mg 08/01/20 09:00 08/01/20 08:34 Ascorbic Acid 500 Mg Tablet PO 500 mg DAILY [facility]IAM Administration Atorvastatin Calcium 20 mg 07/31/20 21:00 07/31/20 21:59 Atorvastatin Calcium 20 Mg Tablet PO 20 mg BEDTIME [facility] Administration Benzonatate 100 mg 07/31/20 17:56 Benzonatate 100 Mg Capsule PO TID PRN cough Dexamethasone Sodium Phosphate 6 mg 08/01/20 09:00 08/01/20 08:34 Dexamethasone Sod Phosphate/Pf 10 Mg/Ml Vial IVPUSH 6 mg DAILY [facility] Administration Diltiazem HCl 180 mg 07/31/20 21:00 08/01/20 08:34 Diltiazem Hcl Cd 180 Mg Cap.Er.24h PO 180 mg BID MARIAM Administration Protocol Docusate Sodium 100 mg 07/31/20 17:56 Docusate Sodium 100 Mg Capsule PO DAILY PRN Constipation Enoxaparin Sodium 40 mg 07/31/20 20:00 07/31/20 19:28 Enoxaparin Sodium 40 Mg/0.4 Ml Syringe SUBCUT 40 mg Q24H [facility]IAM Administration Ferrous Sulfate 324 mg 08/01/20 09:00 08/01/20 08:34 Ferrous Sulfate 324 Mg Tablet.Dr PO 324 mg DAILY [facility]IAM Administration Fluticasone Propionate 1 spray 08/01/20 09:00 08/01/20 08:34 Fluticasone Propionate Nasal 16 Gm [place] NOSTRIL-B 1 spray DAILY [facility]IAM Administration Fluticasone/Vilanterol 1 puff 08/01/20 08:00 08/01/20 07:39 Fluticasone/Vilanterol 200/25 Blst.W.Dev INHALE 1 puff RDAILY [facility] Administration Guaifenesin 600 mg 07/31/20 17:56 07/31/20 22:08 Guaifenesin La 600 Mg Tab.Er.12h PO 600 mg BID PRN Administration cough Guaifenesin/Codeine Phosphate 5 ml 08/01/20 14:57 08/01/20 15:10 Guaifen/Codeine Sf 200/20/10ml 10 Ml Liquid PO 5 ml Q6H PRN Administration severe cough Remdesivir 100 mg/ Sodium 250 mls @ 125 mls/hr 08/01/20 18:00 Chloride IV 08/04/20 19:59 DAILY@1800 [facility] Insulin Glargine 12 unit 07/31/20 21:00 07/31/20 21:59 Insulin Glargine,Hum.Rec.Anlog 100 Unit/Ml 10 Ml Vial SUBCUT 12 unit BEDTIME [facility] Administration Insulin Human Lispro 0 unit 07/31/20 21:00 08/01/20 12:44 Insulin Lispro 100 Unit/Ml 3 Ml Vial SUBCUT 2 unit QIDACHS [facility] Administration Protocol Montelukast Sodium 10 mg 07/31/20 21:00 07/31/20 21:59 Montelukast Sodium 10 Mg Tablet PO 10 mg BEDTIME [facility] Administration Omeprazole 20 mg 08/01/20 06:30 08/01/20 05:47 Omeprazole 20 Mg Capsule. PO 20 mg DAILY@0630 [facility] Administration Ondansetron HCl 4 mg 07/31/20 17:56 Ondansetron Hcl 4 Mg/2 Ml Vial IVPUSH Q8H PRN Nausea and Vomiting Pharmacy Consult 1 each 07/31/20 15:17 Consult Rx Perform Med Rec MISCELLANE ONCE PRN Consult order Sodium Chloride 3 ml 08/01/20 00:00 08/01/20 15:11 0.9 % Sodium Chloride Flush 3 Ml Syringe IVFLUSH 3 ml QSHIFT [facility] Administration Sucralfate 1 gm 07/31/20 21:00 08/01/20 08:34 Sucralfate 1 Gm Tablet PO 1 gm BID MARIAM Administration Vitamin D 25 mcg 08/01/20 09:00 08/01/20 08:34 Cholecalciferol (Vitamin D3) 25 Mcg Tablet PO 25 mcg DAILY [facility] Administration Home Medications Medication Instructions Recorded Confirmed Last Taken Type albuterol sulfate 90 mcg/actuation 90 mcg INHALATION Q6-8H PRN 03/17/20 07/31/20 07/31/20 History aerosol inhaler ferrous sulfate 325 mg (65 mg 325 mg PO DAILY 03/17/20 07/31/20 07/31/20 History iron) tablet,delayed release fluticasone 250 mcg-salmeterol 50 1 inh INHALATION BID 03/17/20 07/31/20 07/31/20 History mcg/dose blistr powdr for inhalation fluticasone propionate 50 1 spray INTRANASAL DAILY 03/17/20 07/31/20 07/30/20 History mcg/actuation nasal spray,suspension insulin lispro 100 unit/mL 5 unit SUBCUT TIDAC 03/17/20 07/31/20 07/31/20 History subcutaneous solution losartan 50 mg tablet 50 mg PO DAILY 03/17/20 07/31/20 07/31/20 History alprazolam 0.5 mg PO Q6H PRN 07/31/20 07/31/20 07/31/20 History ascorbic acid (vitamin C) [Vitamin 500 mg PO DAILY 07/31/20 07/31/20 07/31/20 History C] atorvastatin 20 mg PO BEDTIME 07/31/20 07/31/20 07/30/20 History cholecalciferol (vitamin D3) 25 mcg PO DAILY 07/31/20 07/31/20 07/31/20 History montelukast 10 mg PO BEDTIME 07/31/20 07/31/20 07/30/20 History nystatin 4 ml PO BID 07/31/20 07/31/20 07/31/20 History Physical Exam Vital Signs: Vital Signs: Last Vital Signs Temp 97.7 F 08/01/20 12:00 Pulse 76 08/01/20 12:00 Resp 20 08/01/20 12:00 BP 156/75 H 08/01/20 08:34 Pulse Ox 91 L 08/01/20 12:00 Body Mass Index 27.3 Const: General: cooperative HENMT: Head: Yes normal to inspection Mouth: oropharynx normal Chest: Chest palpation & inspection: normal inspection of the chest Resp: Effort & Inspection: normal respiratory effort Cardio: Rate: regular rate Rhythm: regular rhythm GI: Palpation (GI): Soft to palpation and nontender Skin: General skin exam: no rashes or lesions noted Extrem: General: Yes normal to inspection Results Labs CBC & Chem 7: 08/01/20 06:18 08/01/20 13:23 Labs: Short CBC 07/31/20 07/31/20 08/01/20 Range/Units 14:25 14:25 06:18 WBC 11.0 H (4.8-10.8) X10*3/uL Hgb 9.4 L (14.0-18.0) g/dl Hct 29.4 L (42-52) % Plt Count 301 (160-400) X10*3/uL AST 14 (5-37) U/L Albumin 3.7 (3.5-5.0) g/dL Procalcitonin 0.06 ng/mL [facility] 08/01/20 08/01/20 06:18 13:23 Sodium 144 141 Potassium 4.7 4.6 Chloride 112 H 108 Carbon Dioxide 14 L 21 L BUN 43 H 43 H Creatinine 1.15 1.14 Calcium 8.6 8.9 Microbiology Microbiology Results: Microbiology 07/31/20 14:25 Blood - Venous Blood Culture - Preliminary No growth after 24 hours. Assessment and Plan (1) COVID-19: Problem details: It is somewhat unclear when COVID symptoms started He has recent positive test Status: Acute Oxygen supplementation Remdesivir consideration Dexamethasone
[2020-08-01 16:52] LABS: Glucose, Whole Blood 187 mg/dL (60-115)
[2020-08-01] MEDS: Remdesivir 100 MG in 0.9 % Sodium Chloride 230 ML 125 MG IV (17:07)
[2020-08-01] MEDS: Atorvastatin Calcium 20 MG TABLET PO (20:31)
[2020-08-01] MEDS: Montelukast Sodium 10 MG TABLET PO (20:31)
[2020-08-01] MEDS: Enoxaparin Sodium 40 MG/0.4 ML SYRINGE SUBCUT (20:31)
[2020-08-01 21:33] LABS: Glucose, Whole Blood 207 mg/dL (60-115)
[2020-08-01] MEDS: Insulin Glargine,Hum.rec.anlog 100 UNIT/ML 10 ML VIAL 12 UNIT SUBCUT (21:44)
[2020-08-02] VITALS (9 sets, daily range): BP systolic 151–177; BP diastolic 67–81; PULSE 68–78; RESP 20–24; TEMP 36.2–36.8; O2SAT 89–93
[2020-08-02 06:34] LABS: Hematocrit 28.9 % (42-52); Hemoglobin 9.6 g/dl (14.0-18.0); Mean Corpuscular HGB Conc 33.2 g/dl (31.0-36.0); Mean Corpuscular Hemoglobin 31.1 pg (27.0-33.0); Mean Corpuscular Volume 93.5 fL (80-98); Mean Platelet Volume 10.6 fL (9.4-12.4); Platelet Count 329 X10*3/uL (160-400); Red Blood Count 3.09 X10*6/uL (4.60-5.80); Red Cell Distribution Width 13.6 % (11.0-16.0); White Blood Count 13.4 X10*3/uL (4.8-10.8)
[2020-08-02 06:58] LABS: Anion Gap 17 (12-20); Blood Urea Nitrogen 47 mg/dL (9-16); Calcium 8.8 mg/dL (8.4-10.2); Carbon Dioxide 22 mmol/L (22-29); Chloride 108 mmol/L (96-108); Creatinine Clr Calc Pharmacy 51.3; Estimated Glomerular Filt Rate > 60; Glucose Random 130 mg/dL (60-115); Potassium 4.5 mmol/L (3.3-5.1); Sodium 142 mmol/L (135-145)
[2020-08-02 07:39] LABS: Glucose, Whole Blood 135 mg/dL (60-115)
[2020-08-02] MEDS: 0.9 % Sodium Chloride Flush 3 ML SYRINGE IVFLUSH ×2 (08:00→17:11)
[2020-08-02] MEDS: guaiFEN/Codeine SF 200/20/10ML 10 ML LIQUID 5 ML PO (08:01)
[2020-08-02] MEDS: Cholecalciferol (Vitamin D3) 25 MCG TABLET PO (08:04)
[2020-08-02] MEDS: Sucralfate 1 GM TABLET PO ×2 (08:04→21:43)
[2020-08-02] MEDS: Ferrous Sulfate 324 MG TABLET.DR PO (08:04)
[2020-08-02] MEDS: ALPRAZolam 0.5 MG TABLET PO (08:04)
[2020-08-02] MEDS: Ascorbic Acid 500 MG TABLET PO (08:04)
[2020-08-02] MEDS: dilTIAZem HCL CD 180 MG CAP.ER.24H PO ×2 (08:05→21:43)
[2020-08-02] MEDS: Fluticasone/Vilanterol 200/25 BLST.W.DEV 1 PUFF INHALE (08:11)
[2020-08-02] MEDS: Losartan Potassium 50 MG TABLET PO (10:45)
--- NOTE | 2020-08-02 11:15 | HO.PM.IMPN ---
Subjective Subjective Date of Service: 08/02/20 Interval History: seen and examined he reports less anxiety and cough. reports breathing improved. reports overall he feels better but very tired and asking to sleep for a bit. ROS General - no fevers or chills Cardiovascular - no chest pain Respiratory - +cough, +sob Abdominal- no abdominal pain, nausea, vomiting, diarrhea Physical Exam Vital Signs: Vital Signs: Last Vital Signs Temp 98.3 F 08/02/20 08:00 Pulse 78 08/02/20 10:45 Resp 24 H 08/02/20 08:00 BP 164/70 H 08/02/20 10:45 Pulse Ox 93 08/02/20 08:00 Body Mass Index 27.3 Const: General: alert and awake Nutritional Appearance: well nourished Orientation/consciousness: patient oriented x3 HENMT: Head: Yes normocephalic and Yes atraumatic Eyes: Sclerae: sclerae normal Chest: Chest palpation & inspection: normal inspection of the chest Resp: Effort & Inspection: able to speak in complete sentences, Actively coughing Quality: dry and tachypneic (with expersion) Cardio: Rate: regular rate Rhythm: regular rhythm GI: Palpation (GI): Soft to palpation and nontender Skin: General skin exam: no rashes or lesions noted Neuro: General: patient oriented x3 Cranial nerves: Yes CN's II-XII intact bilaterally and Yes Bilaterally intact EOM present Extrem: General: Yes normal to inspection Objective Data Current Medications Generic Name Dose Route Start Last Admin Trade Name Freq PRN Reason Stop Dose Admin Acetaminophen 650 mg 07/31/20 17:56 Acetaminophen 325 Mg Tablet PO Q6H PRN Pain, Mild (Pain Scale 1-3) Albuterol Sulfate 2 puff 07/31/20 17:56 Albuterol Sulfate 90 Mcg 8 Gm Inhaler INHALE RQ4H PRN Shortness of Breath Alprazolam 0.5 mg 07/31/20 17:56 08/02/20 08:04 Alprazolam 0.5 Mg Tablet PO 0.5 mg Q6H PRN Administration Anxiety Ascorbic Acid 500 mg 08/01/20 09:00 08/02/20 08:04 Ascorbic Acid 500 Mg Tablet PO 500 mg DAILY MARIAM Administration Atorvastatin Calcium 20 mg 07/31/20 21:00 08/01/20 20:31 Atorvastatin Calcium 20 Mg Tablet PO 20 mg BEDTIME MARIAM Administration Benzonatate 100 mg 07/31/20 17:56 Benzonatate 100 Mg Capsule PO TID PRN cough Dexamethasone Sodium Phosphate 6 mg 08/01/20 09:00 08/02/20 08:00 Dexamethasone Sod Phosphate/Pf 10 Mg/Ml Vial IVPUSH 08/10/20 09:01 6 mg DAILY MARIAM Administration Diltiazem HCl 180 mg 07/31/20 21:00 08/02/20 08:05 Diltiazem Hcl Cd 180 Mg Cap.Er.24h PO 180 mg BID MARIAM Administration Protocol Docusate Sodium 100 mg 07/31/20 17:56 Docusate Sodium 100 Mg Capsule PO DAILY PRN Constipation Enoxaparin Sodium 40 mg 07/31/20 20:00 08/01/20 20:31 Enoxaparin Sodium 40 Mg/0.4 Ml Syringe SUBCUT 40 mg Q24H MARIAM Administration Ferrous Sulfate 324 mg 08/01/20 09:00 08/02/20 08:04 Ferrous Sulfate 324 Mg Tablet.Dr PO 324 mg DAILY [facility] Administration Fluticasone Propionate 1 spray 08/01/20 09:00 08/02/20 08:06 Fluticasone Propionate Nasal 16 Gm [place] NOSTRIL-B Not Given DAILY [facility] Fluticasone/Vilanterol 1 puff 08/01/20 08:00 08/02/20 08:11 Fluticasone/Vilanterol 200/25 Blst.W.Dev INHALE 1 puff RDAILY [facility] Administration Guaifenesin 600 mg 07/31/20 17:56 07/31/20 22:08 Guaifenesin La 600 Mg Tab.Er.12h PO 600 mg BID PRN Administration cough Guaifenesin/Codeine Phosphate 5 ml 08/01/20 14:57 08/02/20 08:01 Guaifen/Codeine Sf 200/20/10ml 10 Ml Liquid PO 5 ml Q6H PRN Administration severe cough Remdesivir 100 mg/ Sodium 250 mls @ 125 mls/hr 08/01/20 18:00 08/01/20 21:52 Chloride IV 08/04/20 19:59 Infused DAILY@1800 [facility] Infusion Insulin Glargine 12 unit 07/31/20 21:00 08/01/20 21:44 Insulin Glargine,Hum.Rec.Anlog 100 Unit/Ml 10 Ml Vial SUBCUT 12 unit BEDTIME [facility] Administration Insulin Human Lispro 0 unit 07/31/20 21:00 08/02/20 07:41 Insulin Lispro 100 Unit/Ml 3 Ml Vial SUBCUT Not Given QIDACHS [facility] Protocol Losartan Potassium 50 mg 08/02/20 09:30 08/02/20 10:45 Losartan Potassium 50 Mg Tablet PO 50 mg DAILY MARIAM Administration Protocol Montelukast Sodium 10 mg 07/31/20 21:00 08/01/20 20:31 Montelukast Sodium 10 Mg Tablet PO 10 mg BEDTIME [facility]IAM Administration Omeprazole 20 mg 08/01/20 06:30 08/02/20 06:21 Omeprazole 20 Mg Capsule.Dr PO Not Given DAILY@0630 [facility] Ondansetron HCl 4 mg 07/31/20 17:56 Ondansetron Hcl 4 Mg/2 Ml Vial IVPUSH Q8H PRN Nausea and Vomiting Pharmacy Consult 1 each 07/31/20 15:17 Consult Rx Perform Med Rec MISCELLANE ONCE PRN Consult order Sodium Chloride 3 ml 08/01/20 00:00 08/02/20 08:00 0.9 % Sodium Chloride Flush 3 Ml Syringe IVFLUSH 3 ml QSHIFT [facility] Administration Sucralfate 1 gm 07/31/20 21:00 08/02/20 08:04 Sucralfate 1 Gm Tablet PO 1 gm BID MARIAM Administration Vitamin D 25 mcg 08/01/20 09:00 08/02/20 08:04 Cholecalciferol (Vitamin D3) 25 Mcg Tablet PO 25 mcg DAILY MARIAM Administration Labs CBC & Chem 7: 08/02/20 06:20 08/02/20 06:20 Microbiology Microbiology Results: Microbiology 07/31/20 16:14 Blood - Venous Blood Culture - Preliminary No growth after 24 hours. 07/31/20 14:25 Blood - Venous Blood Culture - Preliminary No growth after 24 hours. Assessment and Plan (1) COVID-19: Problem details: It is somewhat unclear when COVID symptoms started He has recent positive test Status: Acute Assessment and Plan: This is an 79-year-old male with a history of steroid dependent COPD, anxiety, diabetes, polymyalgia rheumatica, PUD among others, recently diagnosed with COVID-19 here with shortness of breath and hypoxia 1.COVID 19 causing acute resp. failure with hypoxia and viral sepsis was on 4L upon admission, now tolerating 2L continue decadron day 08/27; Remdesivir day 08/22 ID input appreciated 2. ADALBERTO with metabolic acidosis resolved restart losartan 3. DM uncontrolled - worsened by steroid use ISS + Lantus uptitrate as needed 4. Hyperlipidemia Continue statin 5. Polymyalgia rheumatica Will be on dexamethasone, hold prednisone -- resume after completion of decadron 8. Hypertension Continue diltiazem, losartan 9. PUD Continue sucralfate, ppi 10. Severe anxiety prn xanax and non-pharmacological methods reassured him about his condition Full Code DVT pptx called and left for his daughter Susie @ [phone]
[2020-08-02 11:24] LABS: Glucose, Whole Blood 243 mg/dL (60-115)
[2020-08-02 11:43] LABS: Alanine Aminotransferase 12 U/L (0-40); Albumin Level 3.6 g/dL (3.5-5.0); Alkaline Phosphatase 63 U/L (39-117); Aspartate Amino Transferase 17 U/L (5-37); Bilirubin Direct < 0.2 mg/dL (0.0-0.5); Bilirubin Total 0.5 mg/dL (0.0-1.0); Total Protein 5.9 g/dL (6.5-8.0)
[2020-08-02] MEDS: Insulin Lispro 100 UNIT/ML 3 ML VIAL SUBCUT ×3 (11:45→21:44)
[2020-08-02 16:09] LABS: Glucose, Whole Blood 213 mg/dL (60-115)
[2020-08-02] MEDS: Remdesivir 100 MG in 0.9 % Sodium Chloride 230 ML 125 MG IV (17:11)
[2020-08-02 20:07] LABS: Glucose, Whole Blood 196 mg/dL (60-115)
[2020-08-02] MEDS: Atorvastatin Calcium 20 MG TABLET PO (21:43)
[2020-08-02] MEDS: Montelukast Sodium 10 MG TABLET PO (21:43)
[2020-08-02] MEDS: Enoxaparin Sodium 40 MG/0.4 ML SYRINGE SUBCUT (21:43)
[2020-08-02] MEDS: Insulin Glargine,Hum.rec.anlog 100 UNIT/ML 10 ML VIAL 12 UNIT SUBCUT (21:44)
[2020-08-03] VITALS (7 sets, daily range): BP systolic 142–183; BP diastolic 72–94; PULSE 66–79; RESP 18–24; TEMP 36.3–36.8; O2SAT 90–97
[2020-08-03] MEDS: 0.9 % Sodium Chloride Flush 3 ML SYRINGE IVFLUSH ×3 (00:03→15:53)
[2020-08-03] MEDS: ALPRAZolam 0.5 MG TABLET PO ×2 (00:20→20:08)
[2020-08-03 06:58] LABS: Hematocrit 27.8 % (42-52); Hemoglobin 9.5 g/dl (14.0-18.0); Mean Corpuscular HGB Conc 34.2 g/dl (31.0-36.0); Mean Corpuscular Hemoglobin 31.5 pg (27.0-33.0); Mean Corpuscular Volume 92.1 fL (80-98); Mean Platelet Volume 10.6 fL (9.4-12.4); Platelet Count 335 X10*3/uL (160-400); Red Blood Count 3.02 X10*6/uL (4.60-5.80); Red Cell Distribution Width 13.5 % (11.0-16.0); White Blood Count 11.6 X10*3/uL (4.8-10.8)
[2020-08-03 07:26] LABS: Alanine Aminotransferase 14 U/L (0-40); Albumin Level 3.4 g/dL (3.5-5.0); Alkaline Phosphatase 60 U/L (39-117); Anion Gap 16 (12-20); Aspartate Amino Transferase 16 U/L (5-37); Bilirubin Direct 0.2 mg/dL (0.0-0.5); Bilirubin Total 0.4 mg/dL (0.0-1.0); Blood Urea Nitrogen 43 mg/dL (9-16); Calcium 8.3 mg/dL (8.4-10.2); Carbon Dioxide 20 mmol/L (22-29); Chloride 109 mmol/L (96-108); Creatinine Clr Calc Pharmacy 59.3; Estimated Glomerular Filt Rate > 60; Glucose Random 111 mg/dL (60-115); Potassium 4.1 mmol/L (3.3-5.1); Sodium 141 mmol/L (135-145); Total Protein 5.6 g/dL (6.5-8.0)
[2020-08-03] MEDS: Omeprazole 20 MG CAPSULE.DR PO (07:29)
[2020-08-03] MEDS: Fluticasone/Vilanterol 200/25 BLST.W.DEV 1 PUFF INHALE (07:47)
[2020-08-03 07:52] LABS: Glucose, Whole Blood 103 mg/dL (60-115)
[2020-08-03 08:06] LABS: C Reactive Protein 2.13 mg/dL (< or = 0.50)
[2020-08-03] MEDS: Sucralfate 1 GM TABLET PO ×2 (09:05→20:08)
[2020-08-03] MEDS: dilTIAZem HCL CD 180 MG CAP.ER.24H PO ×2 (09:05→20:08)
[2020-08-03] MEDS: Losartan Potassium 50 MG TABLET PO (09:05)
[2020-08-03] MEDS: Ferrous Sulfate 324 MG TABLET.DR PO (09:05)
[2020-08-03] MEDS: Cholecalciferol (Vitamin D3) 25 MCG TABLET PO (09:05)
[2020-08-03] MEDS: Ascorbic Acid 500 MG TABLET PO (09:05)
[2020-08-03] MEDS: Fluticasone Propionate Nasal 16 GM SPRAY 1 SPRAY NOSTRIL-B (09:07)
--- NOTE | 2020-08-03 09:55 | P.PNIM_ITS ---
Subjective Subjective Date of Service: 08/03/20 Interval History: seen and examined asking me when hes going home reports sore throat but breathing a bit easier o2 dropping this AM in the 80s on RA ROS General - no fevers or chills Cardiovascular - no chest pain Respiratory - +cough, +sob Abdominal- no abdominal pain, nausea, vomiting, diarrhea Physical Exam Vital Signs: Vital Signs: Last Vital Signs Temp 97.6 F 08/03/20 08:00 Pulse 78 08/03/20 08:00 Resp 24 H 08/03/20 08:00 BP 183/91 H 08/03/20 08:00 Pulse Ox 92 08/03/20 04:00 Body Mass Index 27.3 Const: General: alert and awake Nutritional Appearance: well nourished Orientation/consciousness: patient oriented x3 HENMT: Head: Yes normocephalic and Yes atraumatic Eyes: Sclerae: sclerae normal Chest: Chest palpation & inspection: normal inspection of the chest Resp: Effort & Inspection: able to speak in complete sentences, Actively coughing Quality: dry and tachypneic (with exersion ) Cardio: Rate: regular rate Rhythm: regular rhythm GI: Palpation (GI): Soft to palpation and nontender Skin: General skin exam: no rashes or lesions noted Neuro: General: patient oriented x3 Cranial nerves: Yes CN's II-XII intact bilaterally and Yes Bilaterally intact EOM present Extrem: General: Yes normal to inspection Objective Data Current Medications Generic Name Dose Route Start Last Admin Trade Name Freq PRN Reason Stop Dose Admin Acetaminophen 650 mg 07/31/20 17:56 Acetaminophen 325 Mg Tablet PO Q6H PRN Pain, Mild (Pain Scale 1-3) Albuterol Sulfate 2 puff 07/31/20 17:56 Albuterol Sulfate 90 Mcg 8 Gm Inhaler INHALE RQ4H PRN Shortness of Breath Alprazolam 0.5 mg 07/31/20 17:56 08/03/20 00:20 Alprazolam 0.5 Mg Tablet PO 0.5 mg Q6H PRN Administration Anxiety Ascorbic Acid 500 mg 08/01/20 09:00 08/03/20 09:05 Ascorbic Acid 500 Mg Tablet PO 500 mg DAILY [facility]IAM Administration Atorvastatin Calcium 20 mg 07/31/20 21:00 08/02/20 21:43 Atorvastatin Calcium 20 Mg Tablet PO 20 mg BEDTIME [facility] Administration Benzocaine 1 lozenge 08/03/20 07:12 Throat Lozenge, Medicated Lozenge MUCOUS MEM Q2H PRN Sore Throat Benzonatate 100 mg 07/31/20 17:56 Benzonatate 100 Mg Capsule PO TID PRN cough Dexamethasone Sodium Phosphate 6 mg 08/01/20 09:00 08/03/20 09:05 Dexamethasone Sod Phosphate/Pf 10 Mg/Ml Vial IVPUSH 08/10/20 09:01 6 mg DAILY [facility] Administration Diltiazem HCl 180 mg 07/31/20 21:00 08/03/20 09:05 Diltiazem Hcl Cd 180 Mg Cap.Er.24h PO 180 mg BID MARIAM Administration Protocol Docusate Sodium 100 mg 07/31/20 17:56 Docusate Sodium 100 Mg Capsule PO DAILY PRN Constipation Enoxaparin Sodium 40 mg 07/31/20 20:00 08/02/20 21:43 Enoxaparin Sodium 40 Mg/0.4 Ml Syringe SUBCUT 40 mg Q24H [facility] Administration Ferrous Sulfate 324 mg 08/01/20 09:00 08/03/20 09:05 Ferrous Sulfate 324 Mg Tablet. PO 324 mg DAILY [facility] Administration Fluticasone Propionate 1 spray 08/01/20 09:00 08/03/20 09:07 Fluticasone Propionate Nasal 16 Gm [place] NOSTRIL-B 1 spray DAILY [facility] Administration Fluticasone/Vilanterol 1 puff 08/01/20 08:00 08/03/20 07:47 Fluticasone/Vilanterol 200/25 Blst.W.Dev INHALE 1 puff RDAILY [facility] Administration Guaifenesin 600 mg 07/31/20 17:56 07/31/20 22:08 Guaifenesin La 600 Mg Tab.Er.12h PO 600 mg BID PRN Administration cough Guaifenesin/Codeine Phosphate 5 ml 08/01/20 14:57 08/02/20 08:01 Guaifen/Codeine Sf 200/20/10ml 10 Ml Liquid PO 5 ml Q6H PRN Administration severe cough Remdesivir 100 mg/ Sodium 250 mls @ 125 mls/hr 08/01/20 18:00 08/02/20 19:21 Chloride IV 08/04/20 19:59 Infused DAILY@1800 [facility] Infusion Insulin Glargine 12 unit 07/31/20 21:00 08/02/20 21:44 Insulin Glargine,Hum.Rec.Anlog 100 Unit/Ml 10 Ml Vial SUBCUT 12 unit BEDTIME [facility] Administration Insulin Human Lispro 0 unit 07/31/20 21:00 08/03/20 09:06 Insulin Lispro 100 Unit/Ml 3 Ml Vial SUBCUT Not Given QIDACHS [facility] Protocol Losartan Potassium 50 mg 08/02/20 09:30 08/03/20 09:05 Losartan Potassium 50 Mg Tablet PO 50 mg DAILY [facility] Administration Protocol Montelukast Sodium 10 mg 07/31/20 21:00 08/02/20 21:43 Montelukast Sodium 10 Mg Tablet PO 10 mg BEDTIME [facility] Administration Omeprazole 20 mg 08/01/20 06:30 08/03/20 07:29 Omeprazole 20 Mg Capsule.Dr PO 20 mg DAILY@0630 [facility] Administration Ondansetron HCl 4 mg 07/31/20 17:56 Ondansetron Hcl 4 Mg/2 Ml Vial IVPUSH Q8H PRN Nausea and Vomiting Pharmacy Consult 1 each 07/31/20 15:17 Consult Rx Perform Med Rec MISCELLANE ONCE PRN Consult order Sodium Chloride 3 ml 08/01/20 00:00 08/03/20 09:05 0.9 % Sodium Chloride Flush 3 Ml Syringe IVFLUSH 3 ml QSHIFT [facility] Administration Sucralfate 1 gm 07/31/20 21:00 08/03/20 09:05 Sucralfate 1 Gm Tablet PO 1 gm BID [facility] Administration Vitamin D 25 mcg 08/01/20 09:00 08/03/20 09:05 Cholecalciferol (Vitamin D3) 25 Mcg Tablet PO 25 mcg DAILY [facility] Administration Labs CBC & Chem 7: 08/03/20 06:33 08/03/20 06:33 Microbiology Microbiology Results: Microbiology 07/31/20 16:14 Blood - Venous Blood Culture - Preliminary No growth after 48 hours. 07/31/20 14:25 Blood - Venous Blood Culture - Preliminary No growth after 48 hours. Assessment and Plan (1) COVID-19: Problem details: It is somewhat unclear when COVID symptoms started He has recent positive test Status: Acute Assessment and Plan: This is an 79-year-old male with a history of steroid dependent COPD, anxiety, diabetes, polymyalgia rheumatica, PUD among others, recently diagnosed with COVID-19 here with shortness of breath and hypoxia 1.COVID 19 causing acute resp. failure with hypoxia and viral sepsis O2 requirements increasing, placed on [place] continue decadron day 09/27; Remdesivir day 09/22 ID input appreciated Repeat cxr and procalcitonin, 2. ADALBERTO with metabolic acidosis resolved 3. DM uncontrolled - worsened by steroid use; ISS + Lantus uptitrate as needed 4. Hyperlipidemia Continue statin 5. Polymyalgia rheumatica On dexamethasone, hold prednisone -- resume after completion of decadron 8. Hypertension Continue diltiazem, losartan 9. PUD Continue sucralfate, ppi 10. Severe anxiety prn xanax and non-pharmacological methods reassured him about his condition Full Code DVT pptx
[2020-08-03 10:37] LABS: Procalcitonin 0.07 ng/mL
[2020-08-03 11:44] LABS: Glucose, Whole Blood 275 mg/dL (60-115)
[2020-08-03] MEDS: Insulin Lispro 100 UNIT/ML 3 ML VIAL SUBCUT ×3 (12:03→20:20)
[2020-08-03 16:08] LABS: Glucose, Whole Blood 290 mg/dL (60-115)
[2020-08-03 16:38] LABS: D Dimer 422 NG/ML
[2020-08-03] MEDS: Remdesivir 100 MG in 0.9 % Sodium Chloride 230 ML 125 MG IV (18:48)
[2020-08-03] MEDS: Enoxaparin Sodium 40 MG/0.4 ML SYRINGE SUBCUT (19:33)
[2020-08-03] MEDS: Montelukast Sodium 10 MG TABLET PO (20:08)
[2020-08-03] MEDS: Benzonatate 100 MG CAPSULE PO (20:08)
[2020-08-03] MEDS: Insulin Glargine,Hum.rec.anlog 100 UNIT/ML 10 ML VIAL 12 UNIT SUBCUT (20:08)
[2020-08-03] MEDS: Atorvastatin Calcium 20 MG TABLET PO (20:08)
[2020-08-03 20:21] LABS: Glucose, Whole Blood 333 mg/dL (60-115)
[2020-08-04] VITALS (8 sets, daily range): BP systolic 127–172; BP diastolic 72–84; PULSE 61–82; RESP 19–22; TEMP 36–36.6; O2SAT 95–100; BMI 27.5
[2020-08-04] MEDS: 0.9 % Sodium Chloride Flush 3 ML SYRINGE IVFLUSH ×4 (00:31→23:39)
[2020-08-04] MEDS: guaiFEN/Codeine SF 200/20/10ML 10 ML LIQUID 5 ML PO (00:41)
[2020-08-04] MEDS: ALPRAZolam 0.5 MG TABLET PO ×2 (02:07→20:19)
[2020-08-04] MEDS: Omeprazole 20 MG CAPSULE.DR PO (05:50)
[2020-08-04 06:47] LABS: D Dimer 384 NG/ML
[2020-08-04 06:54] LABS: Hematocrit 27.1 % (42-52); Hemoglobin 9.2 g/dl (14.0-18.0); Mean Corpuscular HGB Conc 33.9 g/dl (31.0-36.0); Mean Corpuscular Hemoglobin 31.1 pg (27.0-33.0); Mean Corpuscular Volume 91.6 fL (80-98); Platelet Count 361 X10*3/uL (160-400); Red Blood Count 2.96 X10*6/uL (4.60-5.80); Red Cell Distribution Width 13.5 % (11.0-16.0); White Blood Count 12.2 X10*3/uL (4.8-10.8)
[2020-08-04 07:12] LABS: Glucose, Whole Blood 253 mg/dL (60-115)
[2020-08-04 07:21] LABS: Procalcitonin 0.08 ng/mL
[2020-08-04 07:22] LABS: Alanine Aminotransferase 14 U/L (0-40); Albumin Level 3.1 g/dL (3.5-5.0); Alkaline Phosphatase 60 U/L (39-117); Anion Gap 14 (12-20); Aspartate Amino Transferase 13 U/L (5-37); Bilirubin Direct < 0.2 mg/dL (0.0-0.5); Bilirubin Total 0.3 mg/dL (0.0-1.0); Blood Urea Nitrogen 51 mg/dL (9-16); Carbon Dioxide 21 mmol/L (22-29); Chloride 106 mmol/L (96-108); Creatinine Clr Calc Pharmacy 53.1; Estimated Glomerular Filt Rate > 60; Glucose Random 260 mg/dL (60-115); Potassium 4.4 mmol/L (3.3-5.1); Sodium 137 mmol/L (135-145); Total Protein 5.2 g/dL (6.5-8.0)
[2020-08-04 07:44] LABS: Glucose, Whole Blood 237 mg/dL (60-115)
[2020-08-04] MEDS: Fluticasone/Vilanterol 200/25 BLST.W.DEV 1 PUFF INHALE (08:25)
[2020-08-04] MEDS: Ascorbic Acid 500 MG TABLET PO (09:43)
[2020-08-04] MEDS: Cholecalciferol (Vitamin D3) 25 MCG TABLET PO (09:43)
[2020-08-04] MEDS: Insulin Lispro 100 UNIT/ML 3 ML VIAL SUBCUT ×4 (09:43→20:18)
[2020-08-04] MEDS: Sucralfate 1 GM TABLET PO ×2 (09:43→20:19)
[2020-08-04] MEDS: Ferrous Sulfate 324 MG TABLET.DR PO (09:43)
[2020-08-04] MEDS: Losartan Potassium 50 MG TABLET PO (09:44)
[2020-08-04] MEDS: Fluticasone Propionate Nasal 16 GM SPRAY 1 SPRAY NOSTRIL-B (09:44)
[2020-08-04] MEDS: dilTIAZem HCL CD 180 MG CAP.ER.24H PO ×2 (09:44→20:20)
[2020-08-04 11:04] LABS: Glucose, Whole Blood 336 mg/dL (60-115)
--- NOTE | 2020-08-04 14:19 | P.PNIM_ITS ---
Subjective Subjective Date of Service: 08/04/20 Interval History: seen and examined feels tired still hopeful for recovery ROS General - no fevers or chills Cardiovascular - no chest pain Respiratory - +cough, +sob Abdominal- no abdominal pain, nausea, vomiting, diarrhea Physical Exam Vital Signs: Vital Signs: Last Vital Signs Temp 97.8 F 08/04/20 11:48 Pulse 82 08/04/20 11:48 Resp 19 08/04/20 11:48 BP 127/72 08/04/20 11:48 Pulse Ox 97 08/04/20 11:48 Body Mass Index 27.5 Const: General: alert and awake Nutritional Appearance: well nourished Orientation/consciousness: patient oriented x3 HENMT: Head: Yes normocephalic and Yes atraumatic Eyes: Sclerae: sclerae normal Chest: Chest palpation & inspection: normal inspection of the chest Resp: Effort & Inspection: able to speak in complete sentences, Actively coughing Quality: dry and tachypneic (with exersion ) Cardio: Rate: regular rate Rhythm: regular rhythm GI: Palpation (GI): Soft to palpation and nontender Skin: General skin exam: no rashes or lesions noted Neuro: General: patient oriented x3 Cranial nerves: Yes CN's II-XII intact bilaterally and Yes Bilaterally intact EOM present Extrem: General: Yes normal to inspection Objective Data Current Medications Generic Name Dose Route Start Last Admin Trade Name Freq PRN Reason Stop Dose Admin Acetaminophen 650 mg 07/31/20 17:56 Acetaminophen 325 Mg Tablet PO Q6H PRN Pain, Mild (Pain Scale 1-3) Albuterol Sulfate 2 puff 07/31/20 17:56 Albuterol Sulfate 90 Mcg 8 Gm Inhaler INHALE RQ4H PRN Shortness of Breath Alprazolam 0.5 mg 07/31/20 17:56 08/04/20 02:07 Alprazolam 0.5 Mg Tablet PO 0.5 mg Q6H PRN Administration Anxiety Ascorbic Acid 500 mg 08/01/20 09:00 08/04/20 09:43 Ascorbic Acid 500 Mg Tablet PO 500 mg DAILY [facility] Administration Atorvastatin Calcium 20 mg 07/31/20 21:00 08/03/20 20:08 Atorvastatin Calcium 20 Mg Tablet PO 20 mg BEDTIME [facility] Administration Benzocaine 1 lozenge 08/03/20 07:12 Throat Lozenge, Medicated Lozenge MUCOUS MEM Q2H PRN Sore Throat Benzonatate 100 mg 07/31/20 17:56 08/03/20 20:08 Benzonatate 100 Mg Capsule PO 100 mg TID PRN Administration cough Dexamethasone Sodium Phosphate 6 mg 08/01/20 09:00 08/04/20 09:43 Dexamethasone Sod Phosphate/Pf 10 Mg/Ml Vial IVPUSH 08/10/20 09:01 6 mg DAILY [facility] Administration Diltiazem HCl 180 mg 07/31/20 21:00 08/04/20 09:44 Diltiazem Hcl Cd 180 Mg Cap.Er.24h PO 180 mg BID [facility] Administration Protocol Docusate Sodium 100 mg 07/31/20 17:56 Docusate Sodium 100 Mg Capsule PO DAILY PRN Constipation Enoxaparin Sodium 40 mg 07/31/20 20:00 08/03/20 19:33 Enoxaparin Sodium 40 Mg/0.4 Ml Syringe SUBCUT 40 mg Q24H [facility] Administration Ferrous Sulfate 324 mg 08/01/20 09:00 08/04/20 09:43 Ferrous Sulfate 324 Mg Tablet.Dr PO 324 mg DAILY [facility] Administration Fluticasone Propionate 1 spray 08/01/20 09:00 08/04/20 09:44 Fluticasone Propionate Nasal 16 Gm [place] NOSTRIL-B 1 spray DAILY [facility] Administration Fluticasone/Vilanterol 1 puff 08/01/20 08:00 08/04/20 08:25 Fluticasone/Vilanterol 200/25 Blst.W.Dev INHALE 1 puff RDAILY [facility] Administration Guaifenesin 600 mg 07/31/20 17:56 07/31/20 22:08 Guaifenesin La 600 Mg Tab.Er.12h PO 600 mg BID PRN Administration cough Guaifenesin/Codeine Phosphate 5 ml 08/01/20 14:57 08/04/20 00:41 Guaifen/Codeine Sf 200/20/10ml 10 Ml Liquid PO 5 ml Q6H PRN Administration severe cough Remdesivir 100 mg/ Sodium 250 mls @ 125 mls/hr 08/01/20 18:00 08/03/20 20:52 Chloride IV 08/04/20 19:59 Infused DAILY@1800 [facility] Infusion Insulin Glargine 12 unit 07/31/20 21:00 08/03/20 20:08 Insulin Glargine,Hum.Rec.Anlog 100 Unit/Ml 10 Ml Vial SUBCUT 12 unit BEDTIME [facility] Administration Insulin Human Lispro 0 unit 07/31/20 21:00 08/04/20 12:41 Insulin Lispro 100 Unit/Ml 3 Ml Vial SUBCUT 8 unit QIDACHS [facility] Administration Protocol Losartan Potassium 50 mg 08/02/20 09:30 08/04/20 09:44 Losartan Potassium 50 Mg Tablet PO 50 mg DAILY [facility] Administration Protocol Montelukast Sodium 10 mg 07/31/20 21:00 08/03/20 20:08 Montelukast Sodium 10 Mg Tablet PO 10 mg BEDTIME [facility] Administration Omeprazole 20 mg 08/01/20 06:30 08/04/20 05:50 Omeprazole 20 Mg Capsule. PO 20 mg DAILY@0630 [facility] Administration Ondansetron HCl 4 mg 07/31/20 17:56 Ondansetron Hcl 4 Mg/2 Ml Vial IVPUSH Q8H PRN Nausea and Vomiting Pharmacy Consult 1 each 07/31/20 15:17 Consult Rx Perform Med Rec MISCELLANE ONCE PRN Consult order Sodium Chloride 3 ml 08/01/20 00:00 08/04/20 09:43 0.9 % Sodium Chloride Flush 3 Ml Syringe IVFLUSH 3 ml QSHIFT [facility] Administration Sucralfate 1 gm 07/31/20 21:00 08/04/20 09:43 Sucralfate 1 Gm Tablet PO 1 gm BID [facility] Administration Vitamin D 25 mcg 08/01/20 09:00 08/04/20 09:43 Cholecalciferol (Vitamin D3) 25 Mcg Tablet PO 25 mcg DAILY [facility] Administration Labs CBC & Chem 7: 08/04/20 05:48 08/04/20 05:48 Microbiology Microbiology Results: Microbiology 07/31/20 16:14 Blood - Venous Blood Culture - Preliminary No growth after 48 hours. 07/31/20 14:25 Blood - Venous Blood Culture - Preliminary No growth after 48 hours. Assessment and Plan (1) COVID-19: Status: Acute Assessment and Plan: This is an 79-year-old male with a history of steroid dependent COPD, anxiety, diabetes, polymyalgia rheumatica, PUD among others, recently diagnosed with COVID-19 here with shortness of breath and hypoxia 1.COVID 19 causing acute resp. failure with hypoxia and viral sepsis O2 requirements increasing -- on 100% NRMB continue decadron day 10/27; Remdesivir day 10/22 ID input appreciated will give IV lasix x 1 2. ADALBERTO with metabolic acidosis resolved 3. DM uncontrolled - worsened by steroid use; ISS + Lantus uptitrate as needed 4. Hyperlipidemia Continue statin 5. Polymyalgia rheumatica On dexamethasone, hold prednisone -- resume after completion of decadron 8. Hypertension Continue diltiazem, losartan 9. PUD Continue sucralfate, ppi 10. Severe anxiety prn xanax and non-pharmacological methods reassured him about his condition Full Code DVT pptx
[2020-08-04] MEDS: Furosemide 20 MG/2 ML VIAL IVPUSH (15:54)
[2020-08-04 16:15] LABS: Glucose, Whole Blood 208 mg/dL (60-115)
[2020-08-04] MEDS: Remdesivir 100 MG in 0.9 % Sodium Chloride 230 ML 125 MG IV (17:54)
[2020-08-04 19:54] LABS: Glucose, Whole Blood 225 mg/dL (60-115)
[2020-08-04] MEDS: Enoxaparin Sodium 40 MG/0.4 ML SYRINGE SUBCUT (20:18)
[2020-08-04] MEDS: Montelukast Sodium 10 MG TABLET PO (20:19)
[2020-08-04] MEDS: Atorvastatin Calcium 20 MG TABLET PO (20:19)
[2020-08-04] MEDS: Insulin Glargine,Hum.rec.anlog 100 UNIT/ML 10 ML VIAL 12 UNIT SUBCUT (20:19)
[2020-08-05] VITALS (8 sets, daily range): BP systolic 126–140; BP diastolic 56–77; PULSE 60–78; RESP 18–24; TEMP 36.1–37.1; O2SAT 91–100; BMI 27.1
[2020-08-05] MEDS: ALPRAZolam 0.5 MG TABLET PO ×3 (01:26→16:31)
[2020-08-05] MEDS: Omeprazole 20 MG CAPSULE.DR PO (06:24)
[2020-08-05 06:42] LABS: Hematocrit 28.1 % (42-52); Hemoglobin 9.6 g/dl (14.0-18.0); Mean Corpuscular HGB Conc 34.2 g/dl (31.0-36.0); Mean Corpuscular Hemoglobin 31.1 pg (27.0-33.0); Mean Corpuscular Volume 90.9 fL (80-98); Mean Platelet Volume 10.6 fL (9.4-12.4); Platelet Count 358 X10*3/uL (160-400); Red Blood Count 3.09 X10*6/uL (4.60-5.80); Red Cell Distribution Width 13.4 % (11.0-16.0); White Blood Count 13.7 X10*3/uL (4.8-10.8)
[2020-08-05 06:51] LABS: D Dimer 436 NG/ML
[2020-08-05 07:12] LABS: Anion Gap 16 (12-20); Blood Urea Nitrogen 50 mg/dL (9-16); C Reactive Protein 1.32 mg/dL (< or = 0.50); Carbon Dioxide 22 mmol/L (22-29); Chloride 108 mmol/L (96-108); Creatinine Clr Calc Pharmacy 58.1; Estimated Glomerular Filt Rate > 60; Glucose Random 137 mg/dL (60-115); Potassium 4.7 mmol/L (3.3-5.1); Sodium 141 mmol/L (135-145)
[2020-08-05 07:27] LABS: Procalcitonin 0.06 ng/mL
[2020-08-05 07:35] LABS: Glucose, Whole Blood 141 mg/dL (60-115)
[2020-08-05] MEDS: Fluticasone/Vilanterol 200/25 BLST.W.DEV 1 PUFF INHALE (07:39)
[2020-08-05] MEDS: 0.9 % Sodium Chloride Flush 3 ML SYRINGE IVFLUSH ×2 (09:22→16:32)
[2020-08-05] MEDS: dilTIAZem HCL CD 180 MG CAP.ER.24H PO ×2 (09:23→21:11)
[2020-08-05] MEDS: Losartan Potassium 50 MG TABLET PO (09:23)
[2020-08-05] MEDS: Ascorbic Acid 500 MG TABLET PO (09:23)
[2020-08-05] MEDS: Sucralfate 1 GM TABLET PO ×2 (09:23→21:12)
[2020-08-05] MEDS: Cholecalciferol (Vitamin D3) 25 MCG TABLET PO (09:23)
[2020-08-05] MEDS: Ferrous Sulfate 324 MG TABLET.DR PO (09:23)
[2020-08-05] MEDS: Fluticasone Propionate Nasal 16 GM SPRAY 1 SPRAY NOSTRIL-B (09:23)
[2020-08-05 11:14] LABS: Glucose, Whole Blood 206 mg/dL (60-115)
[2020-08-05] MEDS: Insulin Lispro 100 UNIT/ML 3 ML VIAL SUBCUT ×3 (12:12→21:13)
[2020-08-05] MEDS: guaiFEN/Codeine SF 200/20/10ML 10 ML LIQUID 5 ML PO (14:26)
--- NOTE | 2020-08-05 15:18 | P.PNIM_ITS ---
Subjective Subjective Date of Service: 08/05/20 Interval History: the patient was seen and evaluated this morning Laying in bed, feels lethargic and tired, mildly anxious Denies any fever, chills but reports shortness of breath On non-rebreather oxygen mask No reported other overnight events. Systemic review: No fever, chills or weakness No chest pain, palpitation Reporting shortness of breath or coughing No abdominal pain, nausea or vomiting No urinary symptoms No any rash or wounds Physical Exam Vital Signs: Vital Signs: Last Vital Signs Temp 98.7 F 08/05/20 11:31 Pulse 60 08/05/20 11:31 Resp 20 08/05/20 11:31 BP 126/56 L 08/05/20 11:31 Pulse Ox 100 08/05/20 11:31 Body Mass Index 27.1 Const: Other: Constitutional : Alert, oriented, not in distress Neck : Normal inspection, Supple Cardiovascular : RRR, S1 S2, no lower extremity edema Respiratory : Chest wall moving bilaterally, we, in mild respiratory distress, Gastrointestinal: soft, lax, Normal bowel sounds, Non tender Skin : Warm/Dry, No rash Neurological : Alert & oriented x3, No focal deficit Objective Data Current Medications Generic Name Dose Route Start Last Admin Trade Name Freq PRN Reason Stop Dose Admin Acetaminophen 650 mg 07/31/20 17:56 Acetaminophen 325 Mg Tablet PO Q6H PRN Pain, Mild (Pain Scale 1-3) Albuterol Sulfate 2 puff 07/31/20 17:56 Albuterol Sulfate 90 Mcg 8 Gm Inhaler INHALE RQ4H PRN Shortness of Breath Alprazolam 0.5 mg 07/31/20 17:56 08/05/20 09:23 Alprazolam 0.5 Mg Tablet PO 0.5 mg Q6H PRN Administration Anxiety Ascorbic Acid 500 mg 08/01/20 09:00 08/05/20 09:23 Ascorbic Acid 500 Mg Tablet PO 500 mg DAILY [facility] Administration Atorvastatin Calcium 20 mg 07/31/20 21:00 08/04/20 20:19 Atorvastatin Calcium 20 Mg Tablet PO 20 mg BEDTIME [facility] Administration Benzocaine 1 lozenge 08/03/20 07:12 Throat Lozenge, Medicated Lozenge MUCOUS MEM Q2H PRN Sore Throat Benzonatate 100 mg 07/31/20 17:56 08/03/20 20:08 Benzonatate 100 Mg Capsule PO 100 mg TID PRN Administration cough Dexamethasone Sodium Phosphate 6 mg 08/01/20 09:00 08/05/20 09:22 Dexamethasone Sod Phosphate/Pf 10 Mg/Ml Vial IVPUSH 08/10/20 09:01 6 mg DAILY [facility] Administration Diltiazem HCl 180 mg 07/31/20 21:00 08/05/20 09:23 Diltiazem Hcl Cd 180 Mg Cap.Er.24h PO 180 mg BID [facility] Administration Protocol Docusate Sodium 100 mg 07/31/20 17:56 Docusate Sodium 100 Mg Capsule PO DAILY PRN Constipation Enoxaparin Sodium 40 mg 07/31/20 20:00 08/04/20 20:18 Enoxaparin Sodium 40 Mg/0.4 Ml Syringe SUBCUT 40 mg Q24H [facility] Administration Ferrous Sulfate 324 mg 08/01/20 09:00 08/05/20 09:23 Ferrous Sulfate 324 Mg Tablet.Dr PO 324 mg DAILY [facility] Administration Fluticasone Propionate 1 spray 08/01/20 09:00 08/05/20 09:23 Fluticasone Propionate Nasal 16 Gm [place] NOSTRIL-B 1 spray DAILY [facility] Administration Fluticasone/Vilanterol 1 puff 08/01/20 08:00 08/05/20 07:39 Fluticasone/Vilanterol 200/25 Blst.W.Dev INHALE 1 puff RDAILY [facility] Administration Guaifenesin 600 mg 07/31/20 17:56 07/31/20 22:08 Guaifenesin La 600 Mg Tab.Er.12h PO 600 mg BID PRN Administration cough Guaifenesin/Codeine Phosphate 5 ml 08/01/20 14:57 08/05/20 14:26 Guaifen/Codeine Sf 200/20/10ml 10 Ml Liquid PO 5 ml Q6H PRN Administration severe cough Insulin Glargine 12 unit 07/31/20 21:00 08/04/20 20:19 Insulin Glargine,Hum.Rec.Anlog 100 Unit/Ml 10 Ml Vial SUBCUT 12 unit BEDTIME [facility] Administration Insulin Human Lispro 0 unit 07/31/20 21:00 08/05/20 12:12 Insulin Lispro 100 Unit/Ml 3 Ml Vial SUBCUT 4 unit QIDACHS [facility] Administration Protocol Losartan Potassium 50 mg 08/02/20 09:30 08/05/20 09:23 Losartan Potassium 50 Mg Tablet PO 50 mg DAILY [facility] Administration Protocol Montelukast Sodium 10 mg 07/31/20 21:00 08/04/20 20:19 Montelukast Sodium 10 Mg Tablet PO 10 mg BEDTIME [facility] Administration Omeprazole 20 mg 08/01/20 06:30 08/05/20 06:24 Omeprazole 20 Mg Capsule. PO 20 mg DAILY@0630 [facility] Administration Ondansetron HCl 4 mg 07/31/20 17:56 Ondansetron Hcl 4 Mg/2 Ml Vial IVPUSH Q8H PRN Nausea and Vomiting Pharmacy Consult 1 each 07/31/20 15:17 Consult Rx Perform Med Rec MISCELLANE ONCE PRN Consult order Sodium Chloride 3 ml 08/01/20 00:00 08/05/20 09:22 0.9 % Sodium Chloride Flush 3 Ml Syringe IVFLUSH 3 ml QSHIFT [facility] Administration Sucralfate 1 gm 07/31/20 21:00 08/05/20 09:23 Sucralfate 1 Gm Tablet PO 1 gm BID [facility] Administration Vitamin D 25 mcg 08/01/20 09:00 08/05/20 09:23 Cholecalciferol (Vitamin D3) 25 Mcg Tablet PO 25 mcg DAILY [facility] Administration Labs CBC & Chem 7: 08/05/20 05:55 08/05/20 05:55 Microbiology Microbiology Results: Microbiology 07/31/20 16:14 Blood - Venous Blood Culture - Preliminary No growth after 48 hours. 07/31/20 14:25 Blood - Venous Blood Culture - Preliminary No growth after 48 hours. Assessment and Plan (1) COVID-19: Status: Acute Assessment and Plan: This is an 79-year-old male with a history of steroid dependent COPD, anxiety, diabetes, polymyalgia rheumatica, PUD among others, recently diagnosed with COVID-19 here with shortness of breath and hypoxia 1.acute resp. failure with hypoxia and viral sepsis 2/2 Covid 19 infection O2 requirements increasing -- on 100% NRMB continue decadron day 11/27 Finished Remdesivir day 10/22 ID input appreciated 2. ADALBERTO with metabolic acidosis resolved 3. Hyperglycemia 2/2 DM uncontrolled - worsened by steroid use; ISS + Lantus uptitrate as needed 4. Hyperlipidemia Continue statin 5. Polymyalgia rheumatica On dexamethasone, hold prednisone -- resume after completion of decadron 8. Hypertension Continue diltiazem, losartan 9. PUD Continue sucralfate, ppi 10. Severe anxiety prn xanax and non-pharmacological methods reassured him about his condition Full Code DVT pptx
[2020-08-05 16:06] LABS: Glucose, Whole Blood 320 mg/dL (60-115)
[2020-08-05 19:45] LABS: Glucose, Whole Blood 291 mg/dL (60-115)
[2020-08-05] MEDS: Atorvastatin Calcium 20 MG TABLET PO (21:12)
[2020-08-05] MEDS: Montelukast Sodium 10 MG TABLET PO (21:12)
[2020-08-05] MEDS: Insulin Glargine,Hum.rec.anlog 100 UNIT/ML 10 ML VIAL 12 UNIT SUBCUT (21:13)
[2020-08-05] MEDS: Enoxaparin Sodium 40 MG/0.4 ML SYRINGE SUBCUT (21:13)
[2020-08-06] VITALS (7 sets, daily range): BP systolic 140–169; BP diastolic 73–82; PULSE 66–100; RESP 20–22; TEMP 36.2–37.2; O2SAT 92–99; BMI 26.9
[2020-08-06] MEDS: 0.9 % Sodium Chloride Flush 3 ML SYRINGE IVFLUSH ×3 (00:05→18:40)
[2020-08-06 05:03] LABS: Hematocrit 27.9 % (42-52); Hemoglobin 9.6 g/dl (14.0-18.0); Mean Corpuscular HGB Conc 34.4 g/dl (31.0-36.0); Mean Platelet Volume 10.7 fL (9.4-12.4); Platelet Count 375 X10*3/uL (160-400); Red Cell Distribution Width 13.2 % (11.0-16.0); White Blood Count 15.8 X10*3/uL (4.8-10.8)
[2020-08-06] MEDS: Omeprazole 20 MG CAPSULE.DR PO (05:25)
[2020-08-06 05:33] LABS: Anion Gap 14 (12-20); Blood Urea Nitrogen 53 mg/dL (9-16); Calcium 8.2 mg/dL (8.4-10.2); Carbon Dioxide 23 mmol/L (22-29); Chloride 107 mmol/L (96-108); Creatinine Clr Calc Pharmacy 57.5; Estimated Glomerular Filt Rate > 60; Glucose Random 160 mg/dL (60-115); Potassium 4.6 mmol/L (3.3-5.1); Sodium 139 mmol/L (135-145)
[2020-08-06] MEDS: ALPRAZolam 0.5 MG TABLET PO (06:20)
[2020-08-06 07:37] LABS: Glucose, Whole Blood 162 mg/dL (60-115)
[2020-08-06] MEDS: Fluticasone/Vilanterol 200/25 BLST.W.DEV 1 PUFF INHALE (07:37)
[2020-08-06] MEDS: Sucralfate 1 GM TABLET PO ×2 (08:26→23:07)
[2020-08-06] MEDS: Cholecalciferol (Vitamin D3) 25 MCG TABLET PO (08:26)
[2020-08-06] MEDS: Ferrous Sulfate 324 MG TABLET.DR PO (08:27)
[2020-08-06] MEDS: Losartan Potassium 50 MG TABLET PO (08:27)
[2020-08-06] MEDS: Fluticasone Propionate Nasal 16 GM SPRAY 1 SPRAY NOSTRIL-B (08:27)
[2020-08-06] MEDS: Ascorbic Acid 500 MG TABLET PO (08:27)
[2020-08-06] MEDS: dilTIAZem HCL CD 180 MG CAP.ER.24H PO ×2 (08:27→23:07)
[2020-08-06] MEDS: Benzonatate 100 MG CAPSULE PO (08:29)
[2020-08-06 12:04] LABS: Glucose, Whole Blood 236 mg/dL (60-115)
[2020-08-06] MEDS: Insulin Lispro 100 UNIT/ML 3 ML VIAL SUBCUT ×3 (12:57→23:06)
--- NOTE | 2020-08-06 13:14 | P.PNIM_ITS ---
Subjective Subjective Date of Service: 08/06/20 Interval History: The patient was seen and evaluated this morning Laying in bed, feels lethargic and tired, mildly anxious and keeps removing the O2 mask Denies any fever, chills but reports shortness of breath and lethargy On non-rebreather oxygen mask No reported other overnight events. Systemic review: No fever, chills or weakness No chest pain, palpitation Reporting shortness of breath or coughing No abdominal pain, nausea or vomiting No urinary symptoms No any rash or wounds Physical Exam Vital Signs: Vital Signs: Last Vital Signs Temp 97.1 F 08/06/20 07:27 Pulse 77 08/06/20 07:27 Resp 22 H 08/06/20 07:27 BP 153/76 H 08/06/20 07:27 Pulse Ox 93 08/06/20 07:27 Body Mass Index 26.9 Const: Other: Constitutional : Alert, oriented, not in distress Neck : Normal inspection, Supple Cardiovascular : RRR, S1 S2, no lower extremity edema Respiratory : Chest wall moving bilaterally, we, in mild respiratory distress, on NRB Gastrointestinal: soft, lax, Normal bowel sounds, Non tender Skin : Warm/Dry, No rash Neurological : Alert & oriented x3, No focal deficit Objective Data Current Medications Generic Name Dose Route Start Last Admin Trade Name Freq PRN Reason Stop Dose Admin Acetaminophen 650 mg 07/31/20 17:56 Acetaminophen 325 Mg Tablet PO Q6H PRN Pain, Mild (Pain Scale 1-3) Albuterol Sulfate 2 puff 07/31/20 17:56 Albuterol Sulfate 90 Mcg 8 Gm Inhaler INHALE RQ4H PRN Shortness of Breath Alprazolam 0.5 mg 07/31/20 17:56 08/06/20 06:20 Alprazolam 0.5 Mg Tablet PO 0.5 mg Q6H PRN Administration Anxiety Ascorbic Acid 500 mg 08/01/20 09:00 08/06/20 08:27 Ascorbic Acid 500 Mg Tablet PO 500 mg DAILY [facility] Administration Atorvastatin Calcium 20 mg 07/31/20 21:00 08/05/20 21:12 Atorvastatin Calcium 20 Mg Tablet PO 20 mg BEDTIME [facility] Administration Benzocaine 1 lozenge 08/03/20 07:12 Throat Lozenge, Medicated Lozenge MUCOUS MEM Q2H PRN Sore Throat Benzonatate 100 mg 07/31/20 17:56 08/06/20 08:29 Benzonatate 100 Mg Capsule PO 100 mg TID PRN Administration cough Dexamethasone Sodium Phosphate 6 mg 08/01/20 09:00 08/06/20 08:24 Dexamethasone Sod Phosphate/Pf 10 Mg/Ml Vial IVPUSH 08/10/20 09:01 6 mg DAILY [facility] Administration Diltiazem HCl 180 mg 07/31/20 21:00 08/06/20 08:27 Diltiazem Hcl Cd 180 Mg Cap.Er.24h PO 180 mg BID [facility] Administration Protocol Docusate Sodium 100 mg 07/31/20 17:56 Docusate Sodium 100 Mg Capsule PO DAILY PRN Constipation Enoxaparin Sodium 40 mg 07/31/20 20:00 08/05/20 21:13 Enoxaparin Sodium 40 Mg/0.4 Ml Syringe SUBCUT 40 mg Q24H [facility] Administration Ferrous Sulfate 324 mg 08/01/20 09:00 08/06/20 08:27 Ferrous Sulfate 324 Mg Tablet.Dr PO 324 mg DAILY [facility] Administration Fluticasone Propionate 1 spray 08/01/20 09:00 08/06/20 08:27 Fluticasone Propionate Nasal 16 Gm [place] NOSTRIL-B 1 spray DAILY [facility] Administration Fluticasone/Vilanterol 1 puff 08/01/20 08:00 08/06/20 07:37 Fluticasone/Vilanterol 200/25 Blst.W.Dev INHALE 1 puff RDAILY [facility] Administration Guaifenesin 600 mg 07/31/20 17:56 07/31/20 22:08 Guaifenesin La 600 Mg Tab.Er.12h PO 600 mg BID PRN Administration cough Guaifenesin/Codeine Phosphate 5 ml 08/01/20 14:57 08/05/20 14:26 Guaifen/Codeine Sf 200/20/10ml 10 Ml Liquid PO 5 ml Q6H PRN Administration severe cough Insulin Glargine 12 unit 07/31/20 21:00 08/05/20 21:13 Insulin Glargine,Hum.Rec.Anlog 100 Unit/Ml 10 Ml Vial SUBCUT 12 unit BEDTIME [facility] Administration Insulin Human Lispro 0 unit 07/31/20 21:00 08/06/20 12:57 Insulin Lispro 100 Unit/Ml 3 Ml Vial SUBCUT 4 unit QIDACHS [facility] Administration Protocol Losartan Potassium 50 mg 08/02/20 09:30 08/06/20 08:27 Losartan Potassium 50 Mg Tablet PO 50 mg DAILY [facility] Administration Protocol Montelukast Sodium 10 mg 07/31/20 21:00 08/05/20 21:12 Montelukast Sodium 10 Mg Tablet PO 10 mg BEDTIME [facility] Administration Omeprazole 20 mg 08/01/20 06:30 08/06/20 05:25 Omeprazole 20 Mg Capsule. PO 20 mg DAILY@0630 [facility] Administration Ondansetron HCl 4 mg 07/31/20 17:56 Ondansetron Hcl 4 Mg/2 Ml Vial IVPUSH Q8H PRN Nausea and Vomiting Pharmacy Consult 1 each 07/31/20 15:17 Consult Rx Perform Med Rec MISCELLANE ONCE PRN Consult order Sodium Chloride 3 ml 08/01/20 00:00 08/06/20 08:27 0.9 % Sodium Chloride Flush 3 Ml Syringe IVFLUSH 3 ml QSHIFT [facility] Administration Sucralfate 1 gm 07/31/20 21:00 08/06/20 08:26 Sucralfate 1 Gm Tablet PO 1 gm BID [facility] Administration Vitamin D 25 mcg 08/01/20 09:00 08/06/20 08:26 Cholecalciferol (Vitamin D3) 25 Mcg Tablet PO 25 mcg DAILY [facility] Administration Labs CBC & Chem 7: 08/06/20 04:40 08/06/20 04:40 Microbiology Microbiology Results: Microbiology 07/31/20 16:14 Blood - Venous Blood Culture - Final No growth after 5 days. 07/31/20 14:25 Blood - Venous Blood Culture - Final No growth after 5 days. Assessment and Plan (1) COVID-19: Status: Acute Assessment and Plan: This is an 79-year-old male with a history of steroid dependent COPD, anxiety, diabetes, polymyalgia rheumatica, PUD among others, recently diagnosed with COVID-19 here with shortness of breath and hypoxia 1.acute resp. failure with hypoxia and viral sepsis 2/2 Covid 19 infection O2 requirements increasing - on 100% NRMB continue decadron day 12/27 Finished Remdesivir day 10/22 ID input appreciated 2. Physical deconditioning 2/2 acute illness, decrease PO intake encouraged to sit up and eat more To start PT when more stable 3. Hyperglycemia 2/2 DM uncontrolled - worsened by steroid use; ISS + Lantus uptitrate as needed 4. Hyperlipidemia Continue statin 5. Polymyalgia rheumatica On dexamethasone, hold prednisone -- resume after completion of decadron 8. Hypertension Continue diltiazem, losartan 9. PUD Continue sucralfate, ppi 10. Severe anxiety prn xanax and non-pharmacological methods reassured him about his condition 11. ADALBERTO with metabolic acidosis resolved Full Code DVT pptx
--- NOTE | 2020-08-06 13:18 | W.MHC.ACPN ---
Advanced Care Planning Note Advanced Care Planning Note Discussed with: patient and family member(s) Time spent (in minutes): 18 Narrative: I had a chance to meet with the patient and call his Valerie SYLVESTER to discuss current hospital stay and advanced directive. The patient admitted to the hospital for treatment of hypoxemia as a result of Covid 19 infection. He has been requiring large amount of oxygen supplement since admission and is requiring NRB to keep his sats around 90s. his I explained to the patient and the ongoing medical issues and discussed with both of them separately goals of care. Up to this point the patient still interested in intubation as a last resort for treatment if he continues to deteriorate and O2 requirement increases. His was concerned about the possibility of intubation but would agree with her if he gets to that degree. will continue to treat for the time being and keep the patient as full code. Will revisit the topic and have further discussions during the hospital stay. Problems Discussed (1) COVID-19:
[2020-08-06 17:28] LABS: Glucose, Whole Blood 220 mg/dL (60-115)
[2020-08-06 20:51] LABS: Glucose, Whole Blood 224 mg/dL (60-115)
[2020-08-06] MEDS: Enoxaparin Sodium 40 MG/0.4 ML SYRINGE SUBCUT (23:05)
[2020-08-06] MEDS: Montelukast Sodium 10 MG TABLET PO (23:07)
[2020-08-06] MEDS: Atorvastatin Calcium 20 MG TABLET PO (23:07)
[2020-08-07] VITALS (12 sets, daily range): BP systolic 150–189; BP diastolic 74–88; PULSE 77–92; RESP 18–28; TEMP 36–37.1; O2SAT 88–100; BMI 26.8
[2020-08-07] MEDS: 0.9 % Sodium Chloride Flush 3 ML SYRINGE IVFLUSH ×5 (01:56→21:46)
[2020-08-07] MEDS: LORazepam 2 MG/ML VIAL 0.25 MG IVPUSH (03:03)
[2020-08-07 07:14] LABS: Glucose, Whole Blood 208 mg/dL (60-115)
[2020-08-07] MEDS: Insulin Lispro 100 UNIT/ML 3 ML VIAL SUBCUT ×4 (07:49→21:41)
[2020-08-07] MEDS: Cholecalciferol (Vitamin D3) 25 MCG TABLET PO (07:53)
[2020-08-07] MEDS: Sucralfate 1 GM TABLET PO ×2 (07:53→21:41)
[2020-08-07] MEDS: Ferrous Sulfate 324 MG TABLET.DR PO (07:54)
[2020-08-07] MEDS: dilTIAZem HCL CD 180 MG CAP.ER.24H PO ×2 (07:54→21:40)
[2020-08-07] MEDS: Ascorbic Acid 500 MG TABLET PO (07:54)
[2020-08-07] MEDS: Losartan Potassium 50 MG TABLET PO (07:55)
[2020-08-07] MEDS: Fluticasone Propionate Nasal 16 GM SPRAY 1 SPRAY NOSTRIL-B (07:56)
[2020-08-07] MEDS: Fluticasone/Vilanterol 200/25 BLST.W.DEV 1 PUFF INHALE (08:46)
[2020-08-07 11:19] LABS: Glucose, Whole Blood 193 mg/dL (60-115)
--- NOTE | 2020-08-07 13:00 | P.PNIM_ITS ---
Subjective Subjective Date of Service: 08/07/20 Interval History: The patient was seen and evaluated this morning Laying in bed, looks lethargic and tired, sitter at bedside Not eating much, encouraged Denies any fever, chills but reports shortness of breath and lethargy On non-rebreather oxygen mask No reported other overnight events. Systemic review: No fever, chills or weakness No chest pain, palpitation Reporting shortness of breath or coughing No abdominal pain, nausea or vomiting No urinary symptoms No any rash or wounds Physical Exam Vital Signs: Vital Signs: Last Vital Signs Temp 98.7 F 08/07/20 07:28 Pulse 88 08/07/20 09:04 Resp 20 08/07/20 12:00 BP 155/78 H 08/07/20 12:00 Pulse Ox 99 08/07/20 12:00 Body Mass Index 26.8 Const: Other: Constitutional : Alert, oriented, in moderate distress Neck : Normal inspection, Supple Cardiovascular : RRR, S1 S2, no lower extremity edema Respiratory : Chest wall moving bilaterally, we, in mod respiratory distress, on NRB Gastrointestinal: soft, lax, Normal bowel sounds, Non tender Skin : Warm/Dry, No rash Neurological : Alert & oriented to self and place, No focal deficit Objective Data Current Medications Generic Name Dose Route Start Last Admin Trade Name Freq PRN Reason Stop Dose Admin Acetaminophen 650 mg 07/31/20 17:56 Acetaminophen 325 Mg Tablet PO Q6H PRN Pain, Mild (Pain Scale 1-3) Albuterol Sulfate 2 puff 07/31/20 17:56 Albuterol Sulfate 90 Mcg 8 Gm Inhaler INHALE RQ4H PRN Shortness of Breath Alprazolam 0.5 mg 07/31/20 17:56 08/06/20 06:20 Alprazolam 0.5 Mg Tablet PO 0.5 mg Q6H PRN Administration Anxiety Ascorbic Acid 500 mg 08/01/20 09:00 08/07/20 07:54 Ascorbic Acid 500 Mg Tablet PO 500 mg DAILY [facility] Administration Atorvastatin Calcium 20 mg 07/31/20 21:00 08/06/20 23:07 Atorvastatin Calcium 20 Mg Tablet PO 20 mg BEDTIME [facility] Administration Benzocaine 1 lozenge 08/03/20 07:12 Throat Lozenge, Medicated Lozenge MUCOUS MEM Q2H PRN Sore Throat Benzonatate 100 mg 07/31/20 17:56 08/06/20 08:29 Benzonatate 100 Mg Capsule PO 100 mg TID PRN Administration cough Dexamethasone Sodium Phosphate 6 mg 08/01/20 09:00 08/07/20 07:51 Dexamethasone Sod Phosphate/Pf 10 Mg/Ml Vial IVPUSH 08/10/20 09:01 6 mg DAILY [facility] Administration Diltiazem HCl 180 mg 07/31/20 21:00 08/07/20 07:54 Diltiazem Hcl Cd 180 Mg Cap.Er.24h PO 180 mg BID [facility] Administration Protocol Docusate Sodium 100 mg 07/31/20 17:56 Docusate Sodium 100 Mg Capsule PO DAILY PRN Constipation Enoxaparin Sodium 40 mg 07/31/20 20:00 08/06/20 23:05 Enoxaparin Sodium 40 Mg/0.4 Ml Syringe SUBCUT 40 mg Q24H [facility] Administration Ferrous Sulfate 324 mg 08/01/20 09:00 08/07/20 07:54 Ferrous Sulfate 324 Mg Tablet.Dr PO 324 mg DAILY [facility] Administration Fluticasone Propionate 1 spray 08/01/20 09:00 08/07/20 07:56 Fluticasone Propionate Nasal 16 Gm [place] NOSTRIL-B 1 spray DAILY [facility] Administration Fluticasone/Vilanterol 1 puff 08/01/20 08:00 08/07/20 08:46 Fluticasone/Vilanterol 200/25 Blst.W.Dev INHALE 1 puff RDAILY [facility] Administration Furosemide 20 mg 08/07/20 09:00 08/07/20 10:30 Furosemide 20 Mg Tablet PO Not Given DAILY [facility] Protocol Guaifenesin 600 mg 07/31/20 17:56 07/31/20 22:08 Guaifenesin La 600 Mg Tab.Er.12h PO 600 mg BID PRN Administration cough Guaifenesin/Codeine Phosphate 5 ml 08/01/20 14:57 08/05/20 14:26 Guaifen/Codeine Sf 200/20/10ml 10 Ml Liquid PO 5 ml Q6H PRN Administration severe cough Insulin Glargine 12 unit 07/31/20 21:00 08/06/20 23:09 Insulin Glargine,Hum.Rec.Anlog 100 Unit/Ml 10 Ml Vial SUBCUT Not Given BEDTIME [facility] Insulin Human Lispro 0 unit 07/31/20 21:00 08/07/20 11:06 Insulin Lispro 100 Unit/Ml 3 Ml Vial SUBCUT 2 unit QIDACHS [facility] Administration Protocol Losartan Potassium 100 mg 08/07/20 09:00 08/07/20 10:29 Losartan Potassium 50 Mg Tablet PO Not Given DAILY [facility] Protocol Montelukast Sodium 10 mg 07/31/20 21:00 08/06/20 23:07 Montelukast Sodium 10 Mg Tablet PO 10 mg BEDTIME [facility] Administration Omeprazole 20 mg 08/01/20 06:30 08/07/20 04:53 Omeprazole 20 Mg Capsule. PO Not Given DAILY@0630 [facility] Ondansetron HCl 4 mg 07/31/20 17:56 Ondansetron Hcl 4 Mg/2 Ml Vial IVPUSH Q8H PRN Nausea and Vomiting Pharmacy Consult 1 each 07/31/20 15:17 Consult Rx Perform Med Rec MISCELLANE ONCE PRN Consult order Sodium Chloride 3 ml 08/01/20 00:00 08/07/20 07:49 0.9 % Sodium Chloride Flush 3 Ml Syringe IVFLUSH 3 ml QSHIFT [facility] Administration Sucralfate 1 gm 07/31/20 21:00 08/07/20 07:53 Sucralfate 1 Gm Tablet PO 1 gm BID [facility] Administration Vitamin D 25 mcg 08/01/20 09:00 08/07/20 07:53 Cholecalciferol (Vitamin D3) 25 Mcg Tablet PO 25 mcg DAILY [facility] Administration Labs CBC & Chem 7: 08/06/20 04:40 08/06/20 04:40 Microbiology Microbiology Results: Microbiology 07/31/20 16:14 Blood - Venous Blood Culture - Final No growth after 5 days. 07/31/20 14:25 Blood - Venous Blood Culture - Final No growth after 5 days. Assessment and Plan (1) COVID-19: Status: Acute Assessment and Plan: This is an 79-year-old male with a history of steroid dependent COPD, anxiety, diabetes, polymyalgia rheumatica, PUD among others, recently diagnosed with COVID-19 here with shortness of breath and hypoxia 1.acute resp. failure with hypoxia and viral sepsis 2/2 Covid 19 infection O2 requirements decreasing - on 10L NC continue decadron day 12/27 Finished Remdesivir day 10/22 ID input appreciated 2. Physical deconditioning 2/2 acute illness, decrease PO intake encouraged to sit up and eat more To start PT when more stable 3. Hyperglycemia 2/2 DM uncontrolled - worsened by steroid use ISS + Lantus uptitrate as needed 4. Hyperlipidemia Continue statin 5. Polymyalgia rheumatica On dexamethasone, hold prednisone -- resume after completion of decadron 8. Hypertension Continue diltiazem, losartan 9. PUD Continue sucralfate, ppi 10. Severe anxiety prn xanax and non-pharmacological methods reassured him about his condition 11. ADALBERTO with metabolic acidosis resolved Full Code DVT pptx
[2020-08-07 16:16] LABS: Glucose, Whole Blood 281 mg/dL (60-115)
--- NOTE | 2020-08-07 17:28 | PC.NURSE ---
Addendum entered by Conchita Quan RN 08/07/20 17:29: UNABLE TO TAKE PO PILLS, POCKETED AND SPIT OUT AM PILLS, AWARE. Original Note: PT CONFUSED, DISORIENTED, AND DOES NOT ANSWER/FOLLOW COMMANDS. BECOMES COMBATIVE WITH CARE. DESAT 02 RAPIDLY WHEN 02 IS REMOVED, LIPS TURN BLUE. SITTER BEDSIDE FOR SAFETY. AWARE.
[2020-08-07 20:09] LABS: Glucose, Whole Blood 221 mg/dL (60-115)
[2020-08-07 20:12] LABS: Glucose, Whole Blood 209 mg/dL (60-115)
[2020-08-07] MEDS: Enoxaparin Sodium 40 MG/0.4 ML SYRINGE SUBCUT (21:39)
[2020-08-07] MEDS: Atorvastatin Calcium 20 MG TABLET PO (21:40)
[2020-08-07] MEDS: Montelukast Sodium 10 MG TABLET PO (21:41)
[2020-08-07] MEDS: Insulin Glargine,Hum.rec.anlog 100 UNIT/ML 10 ML VIAL 12 UNIT SUBCUT (21:42)
[2020-08-08] VITALS (8 sets, daily range): BP systolic 122–182; BP diastolic 60–89; PULSE 83–97; RESP 18–30; TEMP 36–36.6; O2SAT 88–95
[2020-08-08] MEDS: ALPRAZolam 0.25 MG TABLET PO ×2 (03:44→21:14)
[2020-08-08] MEDS: Omeprazole 20 MG CAPSULE.DR PO (06:20)
[2020-08-08 06:40] LABS: Anion Gap 14 (12-20); Blood Urea Nitrogen 52 mg/dL (9-16); Calcium 8.4 mg/dL (8.4-10.2); Carbon Dioxide 25 mmol/L (22-29); Chloride 106 mmol/L (96-108); Creatinine Clr Calc Pharmacy 61.2; Estimated Glomerular Filt Rate > 60; Glucose Random 218 mg/dL (60-115); Potassium 4.2 mmol/L (3.3-5.1); Sodium 141 mmol/L (135-145)
[2020-08-08] MEDS: Fluticasone/Vilanterol 200/25 BLST.W.DEV 1 PUFF INHALE (07:43)
[2020-08-08 08:04] LABS: Glucose, Whole Blood 206 mg/dL (60-115)
[2020-08-08] MEDS: Cholecalciferol (Vitamin D3) 25 MCG TABLET PO (10:32)
[2020-08-08] MEDS: 0.9 % Sodium Chloride Flush 3 ML SYRINGE IVFLUSH ×3 (10:32→22:34)
[2020-08-08] MEDS: Losartan Potassium 50 MG TABLET 100 MG PO (10:33)
[2020-08-08] MEDS: dilTIAZem HCL CD 180 MG CAP.ER.24H PO ×2 (10:33→21:07)
[2020-08-08] MEDS: Ferrous Sulfate 324 MG TABLET.DR PO (10:33)
[2020-08-08] MEDS: Sucralfate 1 GM TABLET PO ×2 (10:35→21:07)
[2020-08-08] MEDS: Furosemide 20 MG TABLET PO (10:35)
[2020-08-08] MEDS: Ascorbic Acid 500 MG TABLET PO (10:35)
[2020-08-08] MEDS: Fluticasone Propionate Nasal 16 GM SPRAY 1 SPRAY NOSTRIL-B (10:37)
[2020-08-08 11:29] LABS: Glucose, Whole Blood 246 mg/dL (60-115)
--- NOTE | 2020-08-08 12:10 | HO.PM.IMPN ---
Subjective Subjective Date of Service: 08/08/20 Interval History: The patient was seen and evaluated this morning Laying in bed, looks lethargic and tired, sitter at bedside Not eating much, drinking water though More confused and partially aggressive this morning, due to steroid? Denies any fever, chills but reports shortness of breath and lethargy On non-rebreather oxygen mask No reported other overnight events. Systemic review: No fever, chills or weakness No chest pain, palpitation Reporting shortness of breath or coughing No abdominal pain, nausea or vomiting No urinary symptoms No any rash or wounds Physical Exam Vital Signs: Vital Signs: Last Vital Signs Temp 97.9 F 08/08/20 07:28 Pulse 86 08/08/20 07:46 Resp 30 H 08/08/20 07:28 BP 182/70 H 08/08/20 07:28 Pulse Ox 89 L 08/08/20 07:28 Body Mass Index 26.8 Const: Other: Constitutional : Alert, oriented, in moderate distress Neck : Normal inspection, Supple Cardiovascular : RRR, S1 S2, no lower extremity edema Respiratory : Chest wall moving bilaterally, we, in mod respiratory distress, on NRB Gastrointestinal: soft, lax, Normal bowel sounds, Non tender Skin : Warm/Dry, No rash Neurological : Alert & oriented to self and place, No focal deficit Objective Data Current Medications Generic Name Dose Route Start Last Admin Trade Name Freq PRN Reason Stop Dose Admin Acetaminophen 650 mg 07/31/20 17:56 Acetaminophen 325 Mg Tablet PO Q6H PRN Pain, Mild (Pain Scale 1-3) Albuterol Sulfate 2 puff 07/31/20 17:56 Albuterol Sulfate 90 Mcg 8 Gm Inhaler INHALE RQ4H PRN Shortness of Breath Alprazolam 0.25 mg 08/07/20 13:07 08/08/20 03:44 Alprazolam 0.25 Mg Tablet PO 0.25 mg Q6H PRN Administration Anxiety Ascorbic Acid 500 mg 08/01/20 09:00 08/08/20 10:35 Ascorbic Acid 500 Mg Tablet PO 500 mg DAILY [facility] Administration Atorvastatin Calcium 20 mg 07/31/20 21:00 08/07/20 21:40 Atorvastatin Calcium 20 Mg Tablet PO 20 mg BEDTIME [facility] Administration Benzocaine 1 lozenge 08/03/20 07:12 Throat Lozenge, Medicated Lozenge MUCOUS MEM Q2H PRN Sore Throat Benzonatate 100 mg 07/31/20 17:56 08/06/20 08:29 Benzonatate 100 Mg Capsule PO 100 mg TID PRN Administration cough Dexamethasone Sodium Phosphate 6 mg 08/01/20 09:00 08/08/20 10:36 Dexamethasone Sod Phosphate/Pf 10 Mg/Ml Vial IVPUSH 08/10/20 09:01 6 mg DAILY [facility] Administration Diltiazem HCl 180 mg 07/31/20 21:00 08/08/20 10:33 Diltiazem Hcl Cd 180 Mg Cap.Er.24h PO 180 mg BID [facility] Administration Protocol Docusate Sodium 100 mg 07/31/20 17:56 Docusate Sodium 100 Mg Capsule PO DAILY PRN Constipation Enoxaparin Sodium 40 mg 07/31/20 20:00 08/07/20 21:39 Enoxaparin Sodium 40 Mg/0.4 Ml Syringe SUBCUT 40 mg Q24H [facility] Administration Ferrous Sulfate 324 mg 08/01/20 09:00 08/08/20 10:33 Ferrous Sulfate 324 Mg Tablet.Dr PO 324 mg DAILY [facility] Administration Fluticasone Propionate 1 spray 08/01/20 09:00 08/08/20 10:37 Fluticasone Propionate Nasal 16 Gm [place] NOSTRIL-B 1 spray DAILY [facility] Administration Fluticasone/Vilanterol 1 puff 08/01/20 08:00 08/08/20 07:43 Fluticasone/Vilanterol 200/25 Blst.W.Dev INHALE 1 puff RDAILY [facility] Administration Furosemide 20 mg 08/07/20 09:00 08/08/20 10:35 Furosemide 20 Mg Tablet PO 20 mg DAILY [facility] Administration Protocol Guaifenesin 600 mg 07/31/20 17:56 07/31/20 22:08 Guaifenesin La 600 Mg Tab.Er.12h PO 600 mg BID PRN Administration cough Guaifenesin/Codeine Phosphate 5 ml 08/01/20 14:57 08/05/20 14:26 Guaifen/Codeine Sf 200/20/10ml 10 Ml Liquid PO 5 ml Q6H PRN Administration severe cough Insulin Glargine 12 unit 07/31/20 21:00 08/07/20 21:42 Insulin Glargine,Hum.Rec.Anlog 100 Unit/Ml 10 Ml Vial SUBCUT 12 unit BEDTIME [facility] Administration Insulin Human Lispro 0 unit 07/31/20 21:00 08/08/20 10:32 Insulin Lispro 100 Unit/Ml 3 Ml Vial SUBCUT Not Given QIDACHS [facility] Protocol Losartan Potassium 100 mg 08/07/20 09:00 08/08/20 10:33 Losartan Potassium 50 Mg Tablet PO 100 mg DAILY [facility] Administration Protocol Montelukast Sodium 10 mg 07/31/20 21:00 08/07/20 21:41 Montelukast Sodium 10 Mg Tablet PO 10 mg BEDTIME [facility] Administration Omeprazole 20 mg 08/01/20 06:30 08/08/20 06:20 Omeprazole 20 Mg Capsule.Dr PO 20 mg DAILY@0630 [facility] Administration Ondansetron HCl 4 mg 07/31/20 17:56 Ondansetron Hcl 4 Mg/2 Ml Vial IVPUSH Q8H PRN Nausea and Vomiting Pharmacy Consult 1 each 07/31/20 15:17 Consult Rx Perform Med Rec MISCELLANE ONCE PRN Consult order Sodium Chloride 3 ml 08/01/20 00:00 08/08/20 10:32 0.9 % Sodium Chloride Flush 3 Ml Syringe IVFLUSH 3 ml QSHIFT [facility] Administration Sucralfate 1 gm 07/31/20 21:00 08/08/20 10:35 Sucralfate 1 Gm Tablet PO 1 gm BID [facility] Administration Vitamin D 25 mcg 08/01/20 09:00 08/08/20 10:32 Cholecalciferol (Vitamin D3) 25 Mcg Tablet PO 25 mcg DAILY [facility] Administration Labs CBC & Chem 7: 08/06/20 04:40 08/08/20 05:44 Microbiology Microbiology Results: Microbiology 07/31/20 16:14 Blood - Venous Blood Culture - Final No growth after 5 days. 07/31/20 14:25 Blood - Venous Blood Culture - Final No growth after 5 days. Assessment and Plan (1) COVID-19: Status: Acute Assessment and Plan: This is an 79-year-old male with a history of steroid dependent COPD, anxiety, diabetes, polymyalgia rheumatica, PUD among others, recently diagnosed with COVID-19 here with shortness of breath and hypoxia acute resp. failure with hypoxia and viral sepsis 2/2 Covid 19 infection O2 requirements 14L Oxymizer continue decadron day 01/27 Finished Remdesivir day 10/22 ID input appreciated Physical deconditioning 2/2 acute illness, decrease PO intake encouraged to sit up and eat more To start PT when more stable Confusion Likely 2/2 hospital delerium, steroids decrease po xanax reorientation Hyperglycemia 2/2 DM uncontrolled - worsened by steroid use ISS + Lantus uptitrate as needed Hyperlipidemia Continue statin Polymyalgia rheumatica On dexamethasone, hold prednisone -- resume after completion of decadron Hypertension Continue diltiazem, losartan PUD Continue sucralfate, ppi Severe anxiety prn xanax and non-pharmacological methods reassured him about his condition ADALBERTO with metabolic acidosis resolved Full Code DVT pptx
--- NOTE | 2020-08-08 12:38 | MHC.CM.PN ---
Addendum entered by Ainsley Olivares RN 08/08/20 12:46: HCP on file lists as HCP and daughter as alternate Original Note: Patient remains on 1:1 for safety, he had been pulling off O2. Currently on 14 L NC with highflow tubing. Met with patient who told me he wanted one more good day with his and then he would be ready to . Discussed with hospitalist, patient agitation possible related to steroid use. Will continue to monitor for needs. Is not getting out of bed and would likely need rehab prior to dc home. Remains full code
[2020-08-08] MEDS: Insulin Lispro 100 UNIT/ML 3 ML VIAL SUBCUT ×3 (12:44→21:13)
[2020-08-08 16:28] LABS: Glucose, Whole Blood 345 mg/dL (60-115)
[2020-08-08 20:42] LABS: Glucose, Whole Blood 466 mg/dL (60-115)
[2020-08-08] MEDS: Enoxaparin Sodium 40 MG/0.4 ML SYRINGE SUBCUT (21:07)
[2020-08-08] MEDS: Insulin Glargine,Hum.rec.anlog 100 UNIT/ML 10 ML VIAL 12 UNIT SUBCUT (21:09)
[2020-08-08] MEDS: Montelukast Sodium 10 MG TABLET PO (21:10)
[2020-08-08] MEDS: Atorvastatin Calcium 20 MG TABLET PO (21:10)
[2020-08-08 21:11] LABS: Glucose, Whole Blood 497 mg/dL (60-115)
[2020-08-08] MEDS: Benzonatate 100 MG CAPSULE PO (21:14)
[2020-08-09] VITALS (11 sets, daily range): BP systolic 128–163; BP diastolic 72–83; PULSE 80–87; RESP 14–18; TEMP 36.3–37; O2SAT 82–98; BMI 25.8
[2020-08-09 00:28] LABS: Glucose, Whole Blood 392 mg/dL (60-115)
--- NOTE | 2020-08-09 03:37 | PC.NURSE ---
Addendum entered by Adelina aJy RN 08/09/20 05:43: Pt continues to be resistive to care. Noted to be satting 87%. Attempted putting O2 back on, pt became aggressive, pushing me away. Pt allowed sitter to put O2 back on because she knows what she is doing. Now satting 93% on 15L. Will continue to monitor. Original Note: Pt noted to be desatting 88% while sleeping, on 14L NC. Pt assessed and stable. Increased O2 to 15L NC. Will continue to monitor.
[2020-08-09] MEDS: guaiFEN/Codeine SF 200/20/10ML 10 ML LIQUID 5 ML PO (04:41)
[2020-08-09 07:16] LABS: Glucose, Whole Blood 277 mg/dL (60-115)
[2020-08-09] MEDS: 0.9 % Sodium Chloride Flush 3 ML SYRINGE IVFLUSH ×3 (07:53→22:08)
[2020-08-09] MEDS: Insulin Lispro 100 UNIT/ML 3 ML VIAL SUBCUT ×4 (07:53→21:45)
[2020-08-09] MEDS: Sucralfate 1 GM TABLET PO ×2 (07:54→22:07)
[2020-08-09] MEDS: Cholecalciferol (Vitamin D3) 25 MCG TABLET PO (07:54)
[2020-08-09] MEDS: Ferrous Sulfate 324 MG TABLET.DR PO (07:54)
[2020-08-09] MEDS: Ascorbic Acid 500 MG TABLET PO (07:54)
[2020-08-09] MEDS: Losartan Potassium 50 MG TABLET 100 MG PO (07:54)
[2020-08-09] MEDS: Furosemide 20 MG TABLET PO (07:54)
[2020-08-09] MEDS: dilTIAZem HCL CD 180 MG CAP.ER.24H PO ×2 (07:54→21:45)
[2020-08-09] MEDS: Fluticasone Propionate Nasal 16 GM SPRAY 1 SPRAY NOSTRIL-B (07:55)
[2020-08-09 12:50] LABS: Glucose, Whole Blood 257 mg/dL (60-115)
--- NOTE | 2020-08-09 13:21 | P.PNIM_ITS ---
Subjective Subjective Date of Service: 08/09/20 Interval History: Seen in follow-up for COVID related acute hypoxic respiratory failure, Intermittently confused and becomes aggressive. Review of Systems Gen: no fever Resp: + sob, no cough CV: no chest, + GO, no leg edema GI: No n/v, no abd pain Neuro: +confusion Physical Exam Vital Signs: Vital Signs: Last Vital Signs Temp 98.2 F 08/09/20 08:00 Pulse 83 08/09/20 08:00 Resp 16 08/09/20 08:00 BP 149/83 H 08/09/20 09:45 Pulse Ox 98 08/09/20 12:06 Body Mass Index 25.8 Const: Other: Constitutional : Alert, oriented, in moderate distress Neck : Normal inspection, Supple Cardiovascular : RRR, S1 S2, no lower extremity edema Respiratory : Chest wall moving bilaterally, we, in mod respiratory distress, on NRB Gastrointestinal: soft, lax, Normal bowel sounds, Non tender Skin : Warm/Dry, No rash Neurological : Alert & oriented to self and place, No focal deficit Objective Data Current Medications Generic Name Dose Route Start Last Admin Trade Name Freq PRN Reason Stop Dose Admin Acetaminophen 650 mg 07/31/20 17:56 Acetaminophen 325 Mg Tablet PO Q6H PRN Pain, Mild (Pain Scale 1-3) Albuterol Sulfate 2 puff 07/31/20 17:56 Albuterol Sulfate 90 Mcg 8 Gm Inhaler INHALE RQ4H PRN Shortness of Breath Alprazolam 0.25 mg 08/07/20 13:07 08/08/20 21:14 Alprazolam 0.25 Mg Tablet PO 0.25 mg Q6H PRN Administration Anxiety Ascorbic Acid 500 mg 08/01/20 09:00 08/09/20 07:54 Ascorbic Acid 500 Mg Tablet PO 500 mg DAILY [facility] Administration Atorvastatin Calcium 20 mg 07/31/20 21:00 08/08/20 21:10 Atorvastatin Calcium 20 Mg Tablet PO 20 mg BEDTIME [facility] Administration Benzocaine 1 lozenge 08/03/20 07:12 Throat Lozenge, Medicated Lozenge MUCOUS MEM Q2H PRN Sore Throat Benzonatate 100 mg 07/31/20 17:56 08/08/20 21:14 Benzonatate 100 Mg Capsule PO 100 mg TID PRN Administration cough Dexamethasone Sodium Phosphate 6 mg 08/01/20 09:00 08/09/20 07:55 Dexamethasone Sod Phosphate/Pf 10 Mg/Ml Vial IVPUSH 08/10/20 09:01 6 mg DAILY [facility] Administration Diltiazem HCl 180 mg 07/31/20 21:00 08/09/20 07:54 Diltiazem Hcl Cd 180 Mg Cap.Er.24h PO 180 mg BID [facility] Administration Protocol Docusate Sodium 100 mg 07/31/20 17:56 Docusate Sodium 100 Mg Capsule PO DAILY PRN Constipation Enoxaparin Sodium 40 mg 07/31/20 20:00 08/08/20 21:07 Enoxaparin Sodium 40 Mg/0.4 Ml Syringe SUBCUT 40 mg Q24H [facility] Administration Ferrous Sulfate 324 mg 08/01/20 09:00 08/09/20 07:54 Ferrous Sulfate 324 Mg Tablet.Dr PO 324 mg DAILY [facility] Administration Fluticasone Propionate 1 spray 08/01/20 09:00 08/09/20 07:55 Fluticasone Propionate Nasal 16 Gm [place] NOSTRIL-B 1 spray DAILY [facility] Administration Fluticasone/Vilanterol 1 puff 08/01/20 08:00 08/09/20 08:03 Fluticasone/Vilanterol 200/25 Blst.W.Dev INHALE Not Given RDAILY [facility] Furosemide 20 mg 08/07/20 09:00 08/09/20 07:54 Furosemide 20 Mg Tablet PO 20 mg DAILY [facility] Administration Protocol Guaifenesin 600 mg 07/31/20 17:56 07/31/20 22:08 Guaifenesin La 600 Mg Tab.Er.12h PO 600 mg BID PRN Administration cough Guaifenesin/Codeine Phosphate 5 ml 08/01/20 14:57 08/09/20 04:41 Guaifen/Codeine Sf 200/20/10ml 10 Ml Liquid PO 5 ml Q6H PRN Administration severe cough Insulin Glargine 12 unit 07/31/20 21:00 08/08/20 21:09 Insulin Glargine,Hum.Rec.Anlog 100 Unit/Ml 10 Ml Vial SUBCUT 12 unit BEDTIME [facility] Administration Insulin Human Lispro 0 unit 07/31/20 21:00 08/09/20 12:51 Insulin Lispro 100 Unit/Ml 3 Ml Vial SUBCUT 6 unit QIDACHS [facility] Administration Protocol Losartan Potassium 100 mg 02/18/21 09:00 08/09/20 07:54 Losartan Potassium 50 Mg Tablet PO 100 mg DAILY [facility] Administration Protocol Montelukast Sodium 10 mg 07/31/20 21:00 08/08/20 21:10 Montelukast Sodium 10 Mg Tablet PO 10 mg BEDTIME [facility] Administration Omeprazole 20 mg 08/01/20 06:30 08/09/20 05:49 Omeprazole 20 Mg Capsule. PO Not Given DAILY@0630 [facility] Ondansetron HCl 4 mg 07/31/20 17:56 Ondansetron Hcl 4 Mg/2 Ml Vial IVPUSH Q8H PRN Nausea and Vomiting Pharmacy Consult 1 each 07/31/20 15:17 Consult Rx Perform Med Rec MISCELLANE ONCE PRN Consult order Sodium Chloride 3 ml 08/01/20 00:00 08/09/20 07:53 0.9 % Sodium Chloride Flush 3 Ml Syringe IVFLUSH 3 ml QSHIFT [facility] Administration Sucralfate 1 gm 07/31/20 21:00 08/09/20 07:54 Sucralfate 1 Gm Tablet PO 1 gm BID [facility] Administration Vitamin D 25 mcg 08/01/20 09:00 08/09/20 07:54 Cholecalciferol (Vitamin D3) 25 Mcg Tablet PO 25 mcg DAILY [facility] Administration Labs CBC & Chem 7: 08/06/20 04:40 08/08/20 05:44 Microbiology Microbiology Results: Microbiology 07/31/20 16:14 Blood - Venous Blood Culture - Final No growth after 5 days. 07/31/20 14:25 Blood - Venous Blood Culture - Final No growth after 5 days. Assessment and Plan (1) COVID-19: Status: Acute Assessment and Plan: 79-year-old male with a history of steroid dependent COPD, anxiety, diabetes, polymyalgia rheumatica, PUD among others, recently diagnosed with COVID-19 here with shortness of breath and hypoxia acute resp. failure with hypoxia and viral sepsis d/t Covid 19 infection -Continue O2 and wean as sabra -continue decadron day 02/27 -completed 5 days of Remdesevir Physical deconditioning 2/2 acute illness, decrease PO intake encouraged to sit up and eat more To start PT when more stable Confusion/encephalopathy--likely multifactorial including acute illness, steroid, sun downing -Mitigate factors -frequent reorientation DM--w/ high sugars d/t steroid, give additional insulin as needed, continue Lantus Hyperlipidemia Continue statin Polymyalgia rheumatica On dexamethasone, hold prednisone -- resume after completion of decadron Hypertension Continue diltiazem, losartan PUD Continue sucralfate, ppi Severe anxiety prn xanax and non-pharmacological methods reassured him about his condition ADALBERTO with metabolic acidosis resolved Full Code DVT pptx Prognosis guarded and will discuss with family/proxy
[2020-08-09 16:36] LABS: Glucose, Whole Blood 219 mg/dL (60-115)
--- NOTE | 2020-08-09 19:04 | W.MHC.ACPN ---
Advanced Care Planning Note Advanced Care Planning Note Time spent (in minutes): 19 Narrative: Goal of care conversation over the phone with patient's daughter and over the phone in light of patient's flucutuating condition with multiple comorbidities with covid, and I wanted a clear goal of treatment and in the event that patient's condition worsen, taking into account the fact that he has been saying he doesn't want any more and just to / Daughter and will discuss this further and get back to me. Problems Discussed (1) COVID-19:
[2020-08-09] MEDS: Enoxaparin Sodium 40 MG/0.4 ML SYRINGE SUBCUT (19:27)
[2020-08-09 20:45] LABS: Glucose, Whole Blood 200 mg/dL (60-115)
[2020-08-09] MEDS: Montelukast Sodium 10 MG TABLET PO (21:43)
[2020-08-09] MEDS: Insulin Glargine,Hum.rec.anlog 100 UNIT/ML 10 ML VIAL 12 UNIT SUBCUT (21:43)
[2020-08-09] MEDS: Atorvastatin Calcium 20 MG TABLET PO (21:43)
[2020-08-09] MEDS: ALPRAZolam 0.25 MG TABLET PO (21:43)
[2020-08-09 23:00] LABS: Anion Gap 18 (12-20); Blood Urea Nitrogen 53 mg/dL (9-16); Carbon Dioxide 20 mmol/L (22-29); Chloride 105 mmol/L (96-108); Creatinine Clr Calc Pharmacy 56.4; Estimated Glomerular Filt Rate > 60; Glucose Random 235 mg/dL (60-115); Magnesium 2.5 mg/dL (1.6-2.6); Sodium 138 mmol/L (135-145)
[2020-08-10] VITALS (7 sets, daily range): BP systolic 115–163; BP diastolic 56–85; PULSE 67–88; RESP 17–20; TEMP 36.1–36.9; O2SAT 92–100
[2020-08-10] MEDS: Omeprazole 20 MG CAPSULE.DR PO (06:37)
--- NOTE | 2020-08-10 07:22 | PC.NURSE ---
Addendum entered by Nicolasa Rey RN 08/10/20 07:25: pt asymptomatic Original Note: at 2109 pt had 11 beat run V TACH notified labs ordered and normal k, mag ,and echo doppler for nsvt ordered cardialogy consulted c
[2020-08-10] MEDS: 0.9 % Sodium Chloride Flush 3 ML SYRINGE IVFLUSH ×3 (09:23→20:47)
[2020-08-10] MEDS: Losartan Potassium 50 MG TABLET 100 MG PO (09:23)
[2020-08-10] MEDS: dilTIAZem HCL CD 180 MG CAP.ER.24H PO ×2 (09:23→20:46)
[2020-08-10] MEDS: Cholecalciferol (Vitamin D3) 25 MCG TABLET PO (09:23)
[2020-08-10] MEDS: Ascorbic Acid 500 MG TABLET PO (09:23)
[2020-08-10] MEDS: Sucralfate 1 GM TABLET PO ×2 (09:23→20:46)
[2020-08-10] MEDS: Furosemide 20 MG TABLET PO (09:23)
[2020-08-10] MEDS: Ferrous Sulfate 324 MG TABLET.DR PO (09:23)
[2020-08-10] MEDS: Fluticasone Propionate Nasal 16 GM SPRAY 1 SPRAY NOSTRIL-B (09:24)
[2020-08-10] MEDS: Insulin Lispro 100 UNIT/ML 3 ML VIAL SUBCUT ×4 (09:34→20:45)
[2020-08-10 10:14] LABS: Glucose, Whole Blood 241 mg/dL (60-115)
--- NOTE | 2020-08-10 11:24 | HO.PM.IMPN ---
Subjective Subjective Date of Service: 08/10/20 Interval History: seen and examined this AM reports feeling fine despite looking very tired unable to complete full ROS Physical Exam Vital Signs: Vital Signs: Last Vital Signs Temp 97.8 F 08/10/20 11:20 Pulse 78 08/10/20 11:20 Resp 17 08/10/20 11:20 BP 115/56 L 08/10/20 11:20 Pulse Ox 96 08/10/20 11:20 Body Mass Index 25.8 Const: Other: General - ill appearing Cardiovascular - s1s2 Lungs - dim sounds, no distress; down to 4L FiO2 Abdomen - soft, nontender, no rebound or guarding Extremities - no edema bilaterally Neuro - lethargic, but easily arousable Objective Data Current Medications Generic Name Dose Route Start Last Admin Trade Name Freq PRN Reason Stop Dose Admin Acetaminophen 650 mg 07/31/20 17:56 Acetaminophen 325 Mg Tablet PO Q6H PRN Pain, Mild (Pain Scale 1-3) Albuterol Sulfate 2 puff 07/31/20 17:56 Albuterol Sulfate 90 Mcg 8 Gm Inhaler INHALE RQ4H PRN Shortness of Breath Alprazolam 0.25 mg 08/07/20 13:07 08/09/20 21:43 Alprazolam 0.25 Mg Tablet PO 0.25 mg Q6H PRN Administration Anxiety Ascorbic Acid 500 mg 08/01/20 09:00 08/10/20 09:23 Ascorbic Acid 500 Mg Tablet PO 500 mg DAILY MARIAM Administration Atorvastatin Calcium 20 mg 07/31/20 21:00 08/09/20 21:43 Atorvastatin Calcium 20 Mg Tablet PO 20 mg BEDTIME MARIAM Administration Benzocaine 1 lozenge 08/03/20 07:12 Throat Lozenge, Medicated Lozenge MUCOUS MEM Q2H PRN Sore Throat Benzonatate 100 mg 07/31/20 17:56 08/08/20 21:14 Benzonatate 100 Mg Capsule PO 100 mg TID PRN Administration cough Diltiazem HCl 180 mg 07/31/20 21:00 08/10/20 09:23 Diltiazem Hcl Cd 180 Mg Cap.Er.24h PO 180 mg BID MARIAM Administration Protocol Docusate Sodium 100 mg 07/31/20 17:56 Docusate Sodium 100 Mg Capsule PO DAILY PRN Constipation Enoxaparin Sodium 40 mg 07/31/20 20:00 08/09/20 19:27 Enoxaparin Sodium 40 Mg/0.4 Ml Syringe SUBCUT 40 mg Q24H MARIAM Administration Ferrous Sulfate 324 mg 08/01/20 09:00 08/10/20 09:23 Ferrous Sulfate 324 Mg Tablet. PO 324 mg DAILY MARIAM Administration Fluticasone Propionate 1 spray 08/01/20 09:00 08/10/20 09:24 Fluticasone Propionate Nasal 16 Gm [place] NOSTRIL-B 1 spray DAILY MARIAM Administration Fluticasone/Vilanterol 1 puff 08/01/20 08:00 08/10/20 07:56 Fluticasone/Vilanterol 200/25 Blst.W.Dev INHALE Not Given RDAILY [facility] Furosemide 20 mg 08/07/20 09:00 08/10/20 09:23 Furosemide 20 Mg Tablet PO 20 mg DAILY [facility] Administration Protocol Guaifenesin 600 mg 07/31/20 17:56 07/31/20 22:08 Guaifenesin [place] 600 Mg Tab.Er.12h PO 600 mg BID PRN Administration cough Guaifenesin/Codeine Phosphate 5 ml 08/01/20 14:57 08/09/20 04:41 Guaifen/Codeine Sf 200/20/10ml 10 Ml Liquid PO 5 ml Q6H PRN Administration severe cough Insulin Glargine 12 unit 07/31/20 21:00 08/09/20 21:43 Insulin Glargine,Hum.Rec.Anlog 100 Unit/Ml 10 Ml Vial SUBCUT 12 unit BEDTIME MARIAM Administration Insulin Human Lispro 0 unit 07/31/20 21:00 08/10/20 09:34 Insulin Lispro 100 Unit/Ml 3 Ml Vial SUBCUT 4 unit QIDACHS [facility] Administration Protocol Losartan Potassium 100 mg 08/07/20 09:00 08/10/20 09:23 Losartan Potassium 50 Mg Tablet PO 100 mg DAILY [facility] Administration Protocol Montelukast Sodium 10 mg 07/31/20 21:00 08/09/20 21:43 Montelukast Sodium 10 Mg Tablet PO 10 mg BEDTIME MARIAM Administration Omeprazole 20 mg 08/01/20 06:30 08/10/20 06:37 Omeprazole 20 Mg Capsule. PO 20 mg DAILY@0630 [facility] Administration Ondansetron HCl 4 mg 07/31/20 17:56 Ondansetron Hcl 4 Mg/2 Ml Vial IVPUSH Q8H PRN Nausea and Vomiting Pharmacy Consult 1 each 07/31/20 15:17 Consult Rx Perform Med Rec MISCELLANE ONCE PRN Consult order Sodium Chloride 3 ml 08/01/20 00:00 08/10/20 09:23 0.9 % Sodium Chloride Flush 3 Ml Syringe IVFLUSH 3 ml QSHIFT MARIAM Administration Sucralfate 1 gm 07/31/20 21:00 08/10/20 09:23 Sucralfate 1 Gm Tablet PO 1 gm BID MARIAM Administration Vitamin D 25 mcg 08/01/20 09:00 08/10/20 09:23 Cholecalciferol (Vitamin D3) 25 Mcg Tablet PO 25 mcg DAILY MARIAM Administration Labs CBC & Chem 7: 08/06/20 04:40 08/09/20 22:25 Microbiology Microbiology Results: Microbiology 07/31/20 16:14 Blood - Venous Blood Culture - Final No growth after 5 days. 07/31/20 14:25 Blood - Venous Blood Culture - Final No growth after 5 days. Assessment and Plan (1) COVID-19: Status: Acute Assessment and Plan: 79-year-old male with a history of steroid dependent COPD, anxiety, diabetes, polymyalgia rheumatica, PUD among others, recently diagnosed with COVID-19 here with shortness of breath and hypoxia 1. Acute resp. failure with hypoxia and viral sepsis secondary to COVID-19 on 4L [place] ([place]) this AM Goal is above 88-90 completed 10 day course decadron + redesivir continue with supportive care 2. Physical deconditioning 2/2 acute illness, decrease PO intake encouraged to sit up and eat more PT when O2 improved 3. Delirium / encephalopathy multifactoral Mitigate factors frequent reorientation 4. Uncontrolled DM basal+bolus worsened by steriods 5. Hyperlipidemia Continue statin 6. Polymyalgia rheumatica restart prednisone 10mg 7. Hypertension Continue diltiazem, losartan 8. PUD Continue sucralfate, ppi 9. Severe anxiety prn xanax and non-pharmacological methods reassured him about his condition 10. ADALBERTO with metabolic acidosis resolved Full Code DVT pptx d/w the daughter -- Aden ([facility]) @ [phone]. She reports no decision on patients code status has been reached as of yet. She will be continuing further discussion with the patients .
[2020-08-10 11:54] LABS: Glucose, Whole Blood 280 mg/dL (60-115)
[2020-08-10] MEDS: predniSONE 10 MG TABLET PO (12:30)
--- NOTE | 2020-08-10 19:02 | PC.NURSE ---
1830 patient found to desat down to 76% with increased WOB. [place] nasal cannula 2l in place pt resting comfortably in bed. Monitor o2 for several minutes at bedside and increased o2 up to 5l with sao2 only up to 86% then back down to 80 shortly after. Pt continue to c/o sob. hospitalist made aware. 100% nonrebreather placed on patient with improvement in sa02 up to 95%. Patient states he feels better and appears calm and comfortable.
[2020-08-10 20:14] LABS: Glucose, Whole Blood 280 mg/dL (60-115)
[2020-08-10 20:27] LABS: Glucose, Whole Blood 363 mg/dL (60-115)
[2020-08-10] MEDS: Insulin Glargine,Hum.rec.anlog 100 UNIT/ML 10 ML VIAL 12 UNIT SUBCUT (20:45)
[2020-08-10] MEDS: Atorvastatin Calcium 20 MG TABLET PO (20:46)
[2020-08-10] MEDS: Enoxaparin Sodium 40 MG/0.4 ML SYRINGE SUBCUT (20:46)
[2020-08-10] MEDS: Montelukast Sodium 10 MG TABLET PO (20:46)
[2020-08-11] VITALS (7 sets, daily range): BP systolic 133–159; BP diastolic 66–83; PULSE 69–80; RESP 20–22; TEMP 36–36.6; O2SAT 93–99
--- NOTE | 2020-08-11 05:02 | PC.NURSE ---
08/10/20 @2032. Pt had a POC of 363. Md was made aware. Md advised to cover per sliding scale.
[2020-08-11] MEDS: Omeprazole 20 MG CAPSULE.DR PO (05:34)
[2020-08-11 07:24] LABS: Glucose, Whole Blood 209 mg/dL (60-115)
[2020-08-11] MEDS: Furosemide 20 MG TABLET PO (08:14)
[2020-08-11] MEDS: Insulin Lispro 100 UNIT/ML 3 ML VIAL SUBCUT ×4 (08:14→20:43)
[2020-08-11] MEDS: Sucralfate 1 GM TABLET PO ×2 (08:14→20:42)
[2020-08-11] MEDS: Cholecalciferol (Vitamin D3) 25 MCG TABLET PO (08:15)
[2020-08-11] MEDS: dilTIAZem HCL CD 180 MG CAP.ER.24H PO ×2 (08:15→20:44)
[2020-08-11] MEDS: Ascorbic Acid 500 MG TABLET PO (08:15)
[2020-08-11] MEDS: Ferrous Sulfate 324 MG TABLET.DR PO (08:15)
[2020-08-11] MEDS: Losartan Potassium 50 MG TABLET 100 MG PO (08:15)
[2020-08-11] MEDS: Fluticasone Propionate Nasal 16 GM SPRAY 1 SPRAY NOSTRIL-B (08:15)
[2020-08-11] MEDS: predniSONE 10 MG TABLET PO (08:15)
[2020-08-11] MEDS: 0.9 % Sodium Chloride Flush 3 ML SYRINGE IVFLUSH ×3 (08:16→20:44)
[2020-08-11] MEDS: Benzonatate 100 MG CAPSULE PO ×2 (08:49→18:09)
[2020-08-11] MEDS: ALPRAZolam 0.25 MG TABLET PO ×3 (08:49→18:09)
[2020-08-11 08:57] LABS: Hematocrit 27.9 % (42-52); Hemoglobin 9.3 g/dl (14.0-18.0); Mean Corpuscular HGB Conc 33.3 g/dl (31.0-36.0); Mean Corpuscular Hemoglobin 30.4 pg (27.0-33.0); Mean Corpuscular Volume 91.2 fL (80-98); Mean Platelet Volume 10.9 fL (9.4-12.4); Platelet Count 305 X10*3/uL (160-400); Red Blood Count 3.06 X10*6/uL (4.60-5.80); Red Cell Distribution Width 13.2 % (11.0-16.0); White Blood Count 18.6 X10*3/uL (4.8-10.8)
[2020-08-11 09:17] LABS: Anion Gap 16 (12-20); Blood Urea Nitrogen 75 mg/dL (9-16); Calcium 7.9 mg/dL (8.4-10.2); Carbon Dioxide 22 mmol/L (22-29); Chloride 104 mmol/L (96-108); Creatinine Clr Calc Pharmacy 50.4; Estimated Glomerular Filt Rate > 60; Glucose Random 214 mg/dL (60-115); Potassium 4.3 mmol/L (3.3-5.1); Sodium 138 mmol/L (135-145)
[2020-08-11 11:17] LABS: Glucose, Whole Blood 227 mg/dL (60-115)
[2020-08-11] MEDS: guaiFENesin LA 600 MG TAB.ER.12H PO (14:47)
--- NOTE | 2020-08-11 16:22 | P.PNIM_ITS ---
Subjective Subjective Date of Service: 08/11/20 Interval History: seen and examined this AM looks better and more alert tells me he wants to live unable to complete full ROS Physical Exam Vital Signs: Vital Signs: Last Vital Signs Temp 97.4 F 08/11/20 15:22 Pulse 76 08/11/20 15:22 Resp 20 08/11/20 15:22 BP 138/70 08/11/20 15:22 Pulse Ox 96 08/11/20 15:22 Body Mass Index 25.8 Const: Other: General - ill appearing Cardiovascular - s1s2 Lungs - dim sounds, no distress; down to 4L FiO2 Abdomen - soft, nontender, no rebound or guarding Extremities - no edema bilaterally Neuro - awake and alert Objective Data Current Medications Generic Name Dose Route Start Last Admin Trade Name Freq PRN Reason Stop Dose Admin Acetaminophen 650 mg 07/31/20 17:56 Acetaminophen 325 Mg Tablet PO Q6H PRN Pain, Mild (Pain Scale 1-3) Albuterol Sulfate 2 puff 07/31/20 17:56 Albuterol Sulfate 90 Mcg 8 Gm Inhaler INHALE RQ4H PRN Shortness of Breath Alprazolam 0.25 mg 08/07/20 13:07 08/11/20 14:47 Alprazolam 0.25 Mg Tablet PO 0.25 mg Q6H PRN Administration Anxiety Ascorbic Acid 500 mg 08/01/20 09:00 08/11/20 08:15 Ascorbic Acid 500 Mg Tablet PO 500 mg DAILY MARIAM Administration Atorvastatin Calcium 20 mg 07/31/20 21:00 08/10/20 20:46 Atorvastatin Calcium 20 Mg Tablet PO 20 mg BEDTIME MARIAM Administration Benzocaine 1 lozenge 08/03/20 07:12 Throat Lozenge, Medicated Lozenge MUCOUS MEM Q2H PRN Sore Throat Benzonatate 100 mg 07/31/20 17:56 08/11/20 08:49 Benzonatate 100 Mg Capsule PO 100 mg TID PRN Administration cough Diltiazem HCl 180 mg 07/31/20 21:00 08/11/20 08:15 Diltiazem Hcl Cd 180 Mg Cap.Er.24h PO 180 mg BID MARIAM Administration Protocol Docusate Sodium 100 mg 07/31/20 17:56 Docusate Sodium 100 Mg Capsule PO DAILY PRN Constipation Enoxaparin Sodium 40 mg 07/31/20 20:00 08/10/20 20:46 Enoxaparin Sodium 40 Mg/0.4 Ml Syringe SUBCUT 40 mg Q24H MARIAM Administration Ferrous Sulfate 324 mg 08/01/20 09:00 08/11/20 08:15 Ferrous Sulfate 324 Mg Tablet. PO 324 mg DAILY MARIAM Administration Fluticasone Propionate 1 spray 08/01/20 09:00 08/11/20 08:15 Fluticasone Propionate Nasal 16 Gm [place] NOSTRIL-B 1 spray DAILY MARIAM Administration Fluticasone/Vilanterol 1 puff 08/01/20 08:00 08/11/20 07:37 Fluticasone/Vilanterol 200/25 Blst.W.Dev INHALE Not Given RDAILY [facility] Furosemide 20 mg 08/07/20 09:00 08/11/20 08:14 Furosemide 20 Mg Tablet PO 20 mg DAILY MARIAM Administration Protocol Guaifenesin 600 mg 07/31/20 17:56 08/11/20 14:47 Guaifenesin [place] 600 Mg Tab.Er.12h PO 600 mg BID PRN Administration cough Insulin Glargine 12 unit 07/31/20 21:00 08/10/20 20:45 Insulin Glargine,Hum.Rec.Anlog 100 Unit/Ml 10 Ml Vial SUBCUT 12 unit BEDTIME [facility] Administration Insulin Human Lispro 0 unit 07/31/20 21:00 08/11/20 12:59 Insulin Lispro 100 Unit/Ml 3 Ml Vial SUBCUT 4 unit QIDACHS [facility] Administration Protocol Losartan Potassium 100 mg 08/07/20 09:00 08/11/20 08:15 Losartan Potassium 50 Mg Tablet PO 100 mg DAILY [facility] Administration Protocol Montelukast Sodium 10 mg 07/31/20 21:00 08/10/20 20:46 Montelukast Sodium 10 Mg Tablet PO 10 mg BEDTIME MARIAM Administration Omeprazole 20 mg 08/01/20 06:30 08/11/20 05:34 Omeprazole 20 Mg Capsule. PO 20 mg DAILY@0630 MARIAM Administration Ondansetron HCl 4 mg 07/31/20 17:56 Ondansetron Hcl 4 Mg/2 Ml Vial IVPUSH Q8H PRN Nausea and Vomiting Pharmacy Consult 1 each 07/31/20 15:17 Consult Rx Perform Med Rec MISCELLANE ONCE PRN Consult order Prednisone 10 mg 08/10/20 12:00 08/11/20 08:15 Prednisone 10 Mg Tablet PO 10 mg DAILY MARIAM Administration Sodium Chloride 3 ml 08/01/20 00:00 08/11/20 14:47 0.9 % Sodium Chloride Flush 3 Ml Syringe IVFLUSH 3 ml QSHIFT MARIAM Administration Sucralfate 1 gm 07/31/20 21:00 08/11/20 08:14 Sucralfate 1 Gm Tablet PO 1 gm BID MARIAM Administration Vitamin D 25 mcg 08/01/20 09:00 08/11/20 08:15 Cholecalciferol (Vitamin D3) 25 Mcg Tablet PO 25 mcg DAILY MARIAM Administration Labs CBC & Chem 7: 08/11/20 08:28 08/11/20 08:28 Microbiology Microbiology Results: Microbiology 07/31/20 16:14 Blood - Venous Blood Culture - Final No growth after 5 days. 07/31/20 14:25 Blood - Venous Blood Culture - Final No growth after 5 days. Assessment and Plan (1) COVID-19: Status: Acute Assessment and Plan: 79-year-old male with a history of steroid dependent COPD, anxiety, diabetes, polymyalgia rheumatica, PUD among others, recently diagnosed with COVID-19 here with shortness of breath and hypoxia 1. Acute resp. failure with hypoxia and viral sepsis secondary to COVID-19 tolerating between 4-6L [place] ([place]) this AM Goal is above 88-90 completed 10 day course decadron + redesivir continue with supportive care 2. Physical deconditioning 2/2 acute illness, decrease PO intake encouraged to sit up and eat more PT when O2 improved 3. Delirium / encephalopathy multifactoral, appears better today Mitigate factors frequent reorientation 4. Uncontrolled DM basal+bolus worsened by steriods 5. Hyperlipidemia Continue statin 6. Polymyalgia rheumatica restart prednisone 10mg 7. Hypertension Continue diltiazem, losartan 8. PUD Continue sucralfate, ppi 9. Severe anxiety prn xanax and non-pharmacological methods reassured him about his condition 10. ADALBERTO with metabolic acidosis resolved Full Code DVT pptx will update family.
[2020-08-11 16:54] LABS: Glucose, Whole Blood 274 mg/dL (60-115)
[2020-08-11 19:33] LABS: Glucose, Whole Blood 345 mg/dL (60-115)
[2020-08-11] MEDS: Montelukast Sodium 10 MG TABLET PO (20:42)
[2020-08-11] MEDS: Atorvastatin Calcium 20 MG TABLET PO (20:43)
[2020-08-11] MEDS: Insulin Glargine,Hum.rec.anlog 100 UNIT/ML 10 ML VIAL 12 UNIT SUBCUT (20:43)
[2020-08-11] MEDS: Enoxaparin Sodium 40 MG/0.4 ML SYRINGE SUBCUT (20:43)
[2020-08-12] VITALS (8 sets, daily range): BP systolic 133–157; BP diastolic 58–98; PULSE 69–87; RESP 18–24; TEMP 35.9–36.6; O2SAT 91–98; BMI 25.4
[2020-08-12] MEDS: ALPRAZolam 0.25 MG TABLET PO (03:48)
[2020-08-12] MEDS: Omeprazole 20 MG CAPSULE.DR PO (05:16)
[2020-08-12 07:39] LABS: Glucose, Whole Blood 112 mg/dL (60-115)
[2020-08-12] MEDS: Cholecalciferol (Vitamin D3) 25 MCG TABLET PO (09:04)
[2020-08-12] MEDS: Losartan Potassium 50 MG TABLET 100 MG PO (09:04)
[2020-08-12] MEDS: Sucralfate 1 GM TABLET PO ×2 (09:04→21:24)
[2020-08-12] MEDS: Furosemide 20 MG TABLET PO (09:04)
[2020-08-12] MEDS: dilTIAZem HCL CD 180 MG CAP.ER.24H PO ×2 (09:04→21:24)
[2020-08-12] MEDS: predniSONE 10 MG TABLET PO (09:04)
[2020-08-12] MEDS: Ferrous Sulfate 324 MG TABLET.DR PO (09:04)
[2020-08-12] MEDS: Ascorbic Acid 500 MG TABLET PO (09:04)
[2020-08-12] MEDS: 0.9 % Sodium Chloride Flush 3 ML SYRINGE IVFLUSH ×3 (09:05→21:31)
[2020-08-12] MEDS: Fluticasone Propionate Nasal 16 GM SPRAY 1 SPRAY NOSTRIL-B (09:06)
[2020-08-12 09:31] LABS: Hematocrit 30.3 % (42-52); Hemoglobin 10.2 g/dl (14.0-18.0); Mean Corpuscular HGB Conc 33.7 g/dl (31.0-36.0); Mean Corpuscular Hemoglobin 30.4 pg (27.0-33.0); Mean Corpuscular Volume 90.4 fL (80-98); PLT CLUMP 1; Red Blood Count 3.35 X10*6/uL (4.60-5.80); Red Cell Distribution Width 13.3 % (11.0-16.0)
[2020-08-12 09:49] LABS: Anion Gap 18 (12-20); Blood Urea Nitrogen 64 mg/dL (9-16); C Reactive Protein 1.15 mg/dL (< or = 0.50); Calcium 8.1 mg/dL (8.4-10.2); Carbon Dioxide 18 mmol/L (22-29); Chloride 107 mmol/L (96-108); Creatinine Clr Calc Pharmacy 53.7; Estimated Glomerular Filt Rate > 60; Glucose Random 123 mg/dL (60-115); Potassium 5.3 mmol/L (3.3-5.1); Sodium 138 mmol/L (135-145)
[2020-08-12 10:09] LABS: White Blood Count 15.5 X10*3/uL (4.8-10.8)
--- NOTE | 2020-08-12 10:34 | P.CDIC_ITS ---
CDI Concurrent Query Service Date: 08/12/20 Documentation Clarification: Please clarify if you are treating a proba ble/suspected/likely or confirmed: Specifics: Septic encephalopathy Toxic/metabolic encephalopathy Acute encephalopathy Please specify if known Acute Encephalopathy, multifactorial Provider Response: Other Other Diagnosis: Acute Encephalopathy, multifactorial PLEASE DO NOT DELETE/MODIFY EXISTING CONTENT Additional information is needed in order to code to the highest accuracy and appropriate Severity of Illness (SOI). Please clarify the information noted below in your progress notes and discharge summary. Risk Factors/Clinical Indicators/Treatments PN: 08/08 - confusion likely 2/2 hospital delirium, steroids decrease po xanax PN: 08/09 - Confusion/encephalopathy likely multifactoral including acute illness, steroids frequent reorientation, vial sepsis/covid CDS: Gladys Willard CCS, CDIS Contact Number: [phone] Please Review the information above and exercise your independent professional judgment in responding to the query. If you concur, pleas document in the PROGRESS NOTES and DISCHARGE SUMMARY. If you do not agree with the query, please document in the query above. THIS QUERY IS PART OF THE PERMANENT MEDICAL RECORD
[2020-08-12 11:21] LABS: Glucose, Whole Blood 223 mg/dL (60-115)
[2020-08-12] MEDS: Insulin Lispro 100 UNIT/ML 3 ML VIAL SUBCUT ×3 (12:01→21:25)
--- NOTE | 2020-08-12 15:08 | P.PNIM_ITS ---
Subjective Subjective Date of Service: 08/12/20 Interval History: seen and examined this AM feels a bit tired today Physical Exam Vital Signs: Vital Signs: Last Vital Signs Temp 97.8 F 08/12/20 11:51 Pulse 79 08/12/20 11:51 Resp 24 H 08/12/20 11:51 BP 133/58 L 08/12/20 11:51 Pulse Ox 96 08/12/20 11:51 Body Mass Index 25.4 Const: Other: General - ill appearing Cardiovascular - s1s2 Lungs - dim sounds, no distress; down to 4L FiO2 Abdomen - soft, nontender, no rebound or guarding Extremities - no edema bilaterally Neuro - awake and alert Objective Data Current Medications Generic Name Dose Route Start Last Admin Trade Name Freq PRN Reason Stop Dose Admin Acetaminophen 650 mg 07/31/20 17:56 Acetaminophen 325 Mg Tablet PO Q6H PRN Pain, Mild (Pain Scale 1-3) Albuterol Sulfate 2 puff 07/31/20 17:56 Albuterol Sulfate 90 Mcg 8 Gm Inhaler INHALE RQ4H PRN Shortness of Breath Ascorbic Acid 500 mg 08/01/20 09:00 08/12/20 09:04 Ascorbic Acid 500 Mg Tablet PO 500 mg DAILY MARIAM Administration Atorvastatin Calcium 20 mg 07/31/20 21:00 08/11/20 20:43 Atorvastatin Calcium 20 Mg Tablet PO 20 mg BEDTIME MARIAM Administration Benzocaine 1 lozenge 08/03/20 07:12 Throat Lozenge, Medicated Lozenge MUCOUS MEM Q2H PRN Sore Throat Benzonatate 100 mg 07/31/20 17:56 08/11/20 18:09 Benzonatate 100 Mg Capsule PO 100 mg TID PRN Administration cough Diltiazem HCl 180 mg 07/31/20 21:00 08/12/20 09:04 Diltiazem Hcl Cd 180 Mg Cap.Er.24h PO 180 mg BID MARIAM Administration Protocol Docusate Sodium 100 mg 07/31/20 17:56 Docusate Sodium 100 Mg Capsule PO DAILY PRN Constipation Enoxaparin Sodium 40 mg 07/31/20 20:00 08/11/20 20:43 Enoxaparin Sodium 40 Mg/0.4 Ml Syringe SUBCUT 40 mg Q24H MARIAM Administration Ferrous Sulfate 324 mg 08/01/20 09:00 08/12/20 09:04 Ferrous Sulfate 324 Mg Tablet. PO 324 mg DAILY MARIAM Administration Fluticasone Propionate 1 spray 08/01/20 09:00 08/12/20 09:06 Fluticasone Propionate Nasal 16 Gm [place] NOSTRIL-B 1 spray DAILY MARIAM Administration Fluticasone/Vilanterol 1 puff 08/01/20 08:00 08/12/20 07:28 Fluticasone/Vilanterol 200/25 Blst.W.Dev INHALE Not Given RDAILY [facility] Furosemide 20 mg 08/07/20 09:00 08/12/20 09:04 Furosemide 20 Mg Tablet PO 20 mg DAILY MARIAM Administration Protocol Guaifenesin 600 mg 07/31/20 17:56 08/11/20 14:47 Guaifenesin [place] 600 Mg Tab.Er.12h PO 600 mg BID PRN Administration cough Insulin Glargine 12 unit 07/31/20 21:00 08/11/20 20:43 Insulin Glargine,Hum.Rec.Anlog 100 Unit/Ml 10 Ml Vial SUBCUT 12 unit BEDTIME MARIAM Administration Insulin Human Lispro 0 unit 07/31/20 21:00 08/12/20 12:01 Insulin Lispro 100 Unit/Ml 3 Ml Vial SUBCUT 4 unit QIDACHS [facility] Administration Protocol Losartan Potassium 100 mg 08/07/20 09:00 08/12/20 09:04 Losartan Potassium 50 Mg Tablet PO 100 mg DAILY MARIAM Administration Protocol Montelukast Sodium 10 mg 07/31/20 21:00 08/11/20 20:42 Montelukast Sodium 10 Mg Tablet PO 10 mg BEDTIME MARIAM Administration Omeprazole 20 mg 08/01/20 06:30 08/12/20 05:16 Omeprazole 20 Mg Capsule. PO 20 mg DAILY@0630 [facility]IAM Administration Ondansetron HCl 4 mg 07/31/20 17:56 Ondansetron Hcl 4 Mg/2 Ml Vial IVPUSH Q8H PRN Nausea and Vomiting Pharmacy Consult 1 each 07/31/20 15:17 Consult Rx Perform Med Rec MISCELLANE ONCE PRN Consult order Prednisone 10 mg 08/10/20 12:00 08/12/20 09:04 Prednisone 10 Mg Tablet PO 10 mg DAILY MARIAM Administration Sodium Chloride 3 ml 08/01/20 00:00 08/12/20 09:05 0.9 % Sodium Chloride Flush 3 Ml Syringe IVFLUSH 3 ml QSHIFT MARIAM Administration Sucralfate 1 gm 07/31/20 21:00 08/12/20 09:04 Sucralfate 1 Gm Tablet PO 1 gm BID MARIAM Administration Vitamin D 25 mcg 08/01/20 09:00 08/12/20 09:04 Cholecalciferol (Vitamin D3) 25 Mcg Tablet PO 25 mcg DAILY MARIAM Administration Labs CBC & Chem 7: 08/12/20 09:07 08/12/20 09:07 Microbiology Microbiology Results: Microbiology 07/31/20 16:14 Blood - Venous Blood Culture - Final No growth after 5 days. 07/31/20 14:25 Blood - Venous Blood Culture - Final No growth after 5 days. Assessment and Plan (1) COVID-19: Status: Acute Assessment and Plan: 79-year-old male with a history of steroid dependent COPD, anxiety, diabetes, polymyalgia rheumatica, PUD among others, recently diagnosed with COVID-19 here with shortness of breath and hypoxia 1. Acute resp. failure with hypoxia and viral sepsis secondary to COVID-19 tolerating between fluctuates between 6-8L Goal is above 88-90 completed 10 day course decadron + redesivir continue with supportive care cxr with bibasilar atelectasis (more likely) vs infiltrates (less likely) --> incentive regina + empiric doxy. 2. Physical deconditioning 2/2 acute illness, decrease PO intake encouraged to sit up and eat more PT when O2 improved 3. Acute encephalopathy, delirium multifactoral including covid + hospitalization + steroids + baseline severe anxiety Mitigate factors frequent reorientation 4. Uncontrolled DM basal+bolus worsened by steriods 5. Hyperlipidemia Continue statin 6. Polymyalgia rheumatica restart prednisone 10mg 7. Hypertension Continue diltiazem, losartan 8. PUD Continue sucralfate, ppi 9. Severe anxiety prn xanax and non-pharmacological methods reassured him about his condition 10. ADALBERTO with metabolic acidosis resolved Full Code DVT pptx
[2020-08-12] MEDS: Benzonatate 100 MG CAPSULE PO ×2 (15:24→22:43)
[2020-08-12 16:36] LABS: Glucose, Whole Blood 185 mg/dL (60-115)
[2020-08-12] MEDS: Doxycycline Hyclate 100 MG in 0.9 % Sodium Chloride 250 ML 166.67 MG IV (17:11)
[2020-08-12] MEDS: Throat Lozenge, Medicated LOZENGE 1 LOZENGE MUCOUS MEM ×3 (18:10→22:43)
[2020-08-12] MEDS: Enoxaparin Sodium 40 MG/0.4 ML SYRINGE SUBCUT (19:44)
[2020-08-12 20:42] LABS: Glucose, Whole Blood 269 mg/dL (60-115)
[2020-08-12] MEDS: Montelukast Sodium 10 MG TABLET PO (21:24)
[2020-08-12] MEDS: Insulin Glargine,Hum.rec.anlog 100 UNIT/ML 10 ML VIAL 12 UNIT SUBCUT (21:24)
[2020-08-12] MEDS: Atorvastatin Calcium 20 MG TABLET PO (21:24)
[2020-08-13] MEDS: ALPRAZolam 0.5 MG TABLET PO (00:31)
[2020-08-13] MEDS: Throat Lozenge, Medicated LOZENGE 1 LOZENGE MUCOUS MEM (01:04)
[2020-08-13 03:27] VITALS: BP 136/78; PULSE 82; RESP 18; TEMP 36.7; O2SAT 97
[2020-08-13] MEDS: Doxycycline Hyclate 100 MG in 0.9 % Sodium Chloride 250 ML 166.67 MG IV (04:39)
[2020-08-13 05:43] VITALS: BMI 24.8
[2020-08-13] MEDS: Omeprazole 20 MG CAPSULE.DR PO (06:06)
[2020-08-13 07:17] LABS: Glucose, Whole Blood 107 mg/dL (60-115)
[2020-08-13 07:39] VITALS: BP 143/70; PULSE 90; RESP 26; TEMP 36.8; O2SAT 94
[2020-08-13] MEDS: Furosemide 20 MG TABLET PO (08:40)
[2020-08-13] MEDS: Ascorbic Acid 500 MG TABLET PO (08:41)
[2020-08-13] MEDS: Ferrous Sulfate 324 MG TABLET.DR PO (08:41)
[2020-08-13] MEDS: Fluticasone Propionate Nasal 16 GM SPRAY 1 SPRAY NOSTRIL-B (08:41)
[2020-08-13] MEDS: Losartan Potassium 50 MG TABLET 100 MG PO (08:41)
[2020-08-13] MEDS: predniSONE 10 MG TABLET PO (08:41)
[2020-08-13] MEDS: dilTIAZem HCL CD 180 MG CAP.ER.24H PO ×2 (08:41→21:09)
[2020-08-13] MEDS: Cholecalciferol (Vitamin D3) 25 MCG TABLET PO (08:41)
[2020-08-13] MEDS: 0.9 % Sodium Chloride Flush 3 ML SYRINGE IVFLUSH ×2 (08:41→16:18)
[2020-08-13] MEDS: Sucralfate 1 GM TABLET PO ×2 (08:41→21:10)
--- NOTE | 2020-08-13 11:07 | MHC.CM.PN ---
Home is the Patient's goal for dc; PT to eval when O2 improves (5L today). Patient is receiving IV Doxycycline and IV Zosyn. CM will follow for dc planning, pending PT eval and possible need to adjust the dc plan.
[2020-08-13 12:00] VITALS: BP 146/69; PULSE 92; RESP 22; TEMP 37.1; O2SAT 96
[2020-08-13] MEDS: ALPRAZolam 0.25 MG TABLET PO (12:14)
[2020-08-13 12:58] LABS: Glucose, Whole Blood 250 mg/dL (60-115)
[2020-08-13] MEDS: Benzonatate 100 MG CAPSULE PO (14:14)
[2020-08-13] MEDS: Docusate Sodium 100 MG CAPSULE PO (14:14)
--- NOTE | 2020-08-13 14:41 | MHC.CM.PN ---
MONICA spoke with MD and Patient's /Valerie at [phone]. Per MD, Patient would like to return home with [facility]. MONICA has requested that the [facility] Liaison phone Valerie today at 4 to be clear as to how much hands on support that Hospice can offer and possibly a group conversation with Patient's children as well to coordinate how much support Patient's Children can provide, to assist Valerie in caring for Patient at home. Dermatologist has indicated that she will call Valerie today at 4 PM, to help develop a plan. CM will follow.
[2020-08-13 15:08] VITALS: BP 136/71; PULSE 89; RESP 20; TEMP 36.9; O2SAT 97
--- NOTE | 2020-08-13 15:48 | HO.PM.IMPN ---
Subjective Subjective Date of Service: 08/13/20 Interval History: seen and examined this AM awake and alert tells me he is tired and wants Andry to take him wants to go home on hospice d/w the daughter and on the phone -- both in agreement with DNR/DNI and hospice transition Physical Exam Vital Signs: Vital Signs: Last Vital Signs Temp 98.5 F 08/13/20 15:08 Pulse 89 08/13/20 15:08 Resp 20 08/13/20 15:08 BP 136/71 08/13/20 15:08 Pulse Ox 97 08/13/20 15:08 Body Mass Index 24.8 Const: Other: General - ill appearing Cardiovascular - s1s2 Lungs - dim sounds, no distress; down to 4L FiO2 Abdomen - soft, nontender, no rebound or guarding Extremities - no edema bilaterally Neuro - awake and alert Objective Data Current Medications Generic Name Dose Route Start Last Admin Trade Name Freq PRN Reason Stop Dose Admin Acetaminophen 650 mg 07/31/20 17:56 Acetaminophen 325 Mg Tablet PO Q6H PRN Pain, Mild (Pain Scale 1-3) Albuterol Sulfate 2 puff 07/31/20 17:56 Albuterol Sulfate 90 Mcg 8 Gm Inhaler INHALE RQ4H PRN Shortness of Breath Ascorbic Acid 500 mg 08/01/20 09:00 08/13/20 08:41 Ascorbic Acid 500 Mg Tablet PO 500 mg DAILY MARIAM Administration Atorvastatin Calcium 20 mg 07/31/20 21:00 08/12/20 21:24 Atorvastatin Calcium 20 Mg Tablet PO 20 mg BEDTIME MARIAM Administration Benzocaine 1 lozenge 08/03/20 07:12 08/13/20 01:04 Throat Lozenge, Medicated Lozenge MUCOUS MEM 1 lozenge Q2H PRN Administration Sore Throat Benzonatate 100 mg 07/31/20 17:56 08/13/20 14:14 Benzonatate 100 Mg Capsule PO 100 mg TID PRN Administration cough Diltiazem HCl 180 mg 07/31/20 21:00 08/13/20 08:41 Diltiazem Hcl Cd 180 Mg Cap.Er.24h PO 180 mg BID MARIAM Administration Protocol Docusate Sodium 100 mg 07/31/20 17:56 08/13/20 14:14 Docusate Sodium 100 Mg Capsule PO 100 mg DAILY PRN Administration Constipation Enoxaparin Sodium 40 mg 07/31/20 20:00 08/12/20 19:44 Enoxaparin Sodium 40 Mg/0.4 Ml Syringe SUBCUT 40 mg Q24H MARIAM Administration Ferrous Sulfate 324 mg 08/01/20 09:00 08/13/20 08:41 Ferrous Sulfate 324 Mg Tablet. PO 324 mg DAILY MARIAM Administration Fluticasone Propionate 1 spray 08/01/20 09:00 08/13/20 08:41 Fluticasone Propionate Nasal 16 Gm [place] NOSTRIL-B 1 spray DAILY MARIAM Administration Fluticasone/Vilanterol 1 puff 08/01/20 08:00 08/13/20 07:06 Fluticasone/Vilanterol 200/25 Blst.W.Dev INHALE Not Given RDAILY [facility] Furosemide 20 mg 08/07/20 09:00 08/13/20 08:40 Furosemide 20 Mg Tablet PO 20 mg DAILY MARIAM Administration Protocol Guaifenesin 600 mg 07/31/20 17:56 08/11/20 14:47 Guaifenesin [place] 600 Mg Tab.Er.12h PO 600 mg BID PRN Administration cough Doxycycline Hyclate 100 mg/ 250 mls @ 166.67 mls/hr 08/12/20 17:00 08/13/20 06:09 Sodium Chloride IV Infused Q12H [facility] Infusion Insulin Glargine 12 unit 07/31/20 21:00 08/12/20 21:24 Insulin Glargine,Hum.Rec.Anlog 100 Unit/Ml 10 Ml Vial SUBCUT 12 unit BEDTIME MARIAM Administration Insulin Human Lispro 0 unit 07/31/20 21:00 08/13/20 13:48 Insulin Lispro 100 Unit/Ml 3 Ml Vial SUBCUT Not Given QIDACHS [facility] Protocol Losartan Potassium 100 mg 08/07/20 09:00 08/13/20 08:41 Losartan Potassium 50 Mg Tablet PO 100 mg DAILY MARIAM Administration Protocol Montelukast Sodium 10 mg 07/31/20 21:00 08/12/20 21:24 Montelukast Sodium 10 Mg Tablet PO 10 mg BEDTIME MARIAM Administration Omeprazole 20 mg 08/01/20 06:30 08/13/20 06:06 Omeprazole 20 Mg Capsule. PO 20 mg DAILY@0630 [facility] Administration Ondansetron HCl 4 mg 07/31/20 17:56 Ondansetron Hcl 4 Mg/2 Ml Vial IVPUSH Q8H PRN Nausea and Vomiting Pharmacy Consult 1 each 07/31/20 15:17 Consult Rx Perform Med Rec MISCELLANE ONCE PRN Consult order Prednisone 10 mg 08/10/20 12:00 08/13/20 08:41 Prednisone 10 Mg Tablet PO 10 mg DAILY MARIAM Administration Sodium Chloride 3 ml 08/01/20 00:00 08/13/20 08:41 0.9 % Sodium Chloride Flush 3 Ml Syringe IVFLUSH 3 ml QSHIFT MARIAM Administration Sucralfate 1 gm 07/31/20 21:00 08/13/20 08:41 Sucralfate 1 Gm Tablet PO 1 gm BID MARIAM Administration Vitamin D 25 mcg 08/01/20 09:00 08/13/20 08:41 Cholecalciferol (Vitamin D3) 25 Mcg Tablet PO 25 mcg DAILY MARIAM Administration Labs CBC & Chem 7: 08/12/20 09:07 08/12/20 09:07 Microbiology Microbiology Results: Microbiology 07/31/20 16:14 Blood - Venous Blood Culture - Final No growth after 5 days. 07/31/20 14:25 Blood - Venous Blood Culture - Final No growth after 5 days. Assessment and Plan (1) COVID-19: Status: Acute Assessment and Plan: 79-year-old male with a history of steroid dependent COPD, anxiety, diabetes, polymyalgia rheumatica, PUD among others, recently diagnosed with COVID-19 here with shortness of breath and hypoxia 1. Acute resp. failure with hypoxia and viral sepsis secondary to COVID-19 on 5L NC Goal is above 88-90 completed 10 day course decadron + redesivir continue with supportive care stop antibiotics 2. Physical deconditioning 2/2 acute illness, decrease PO intake 3. Acute encephalopathy, delirium multifactoral including covid + hospitalization + steroids + baseline severe anxiety Mitigate factors frequent reorientation 4. Uncontrolled DM basal+bolus worsened by steroids 5. Hyperlipidemia Continue statin 6. Polymyalgia rheumatica prednisone 10 7. Hypertension Continue diltiazem, losartan 8. PUD Continue sucralfate, ppi 9. Severe anxiety prn xanax and non-pharmacological methods reassured him about his condition 10. ADALBERTO with metabolic acidosis resolved Full Code DVT pptx dispo: transition to hospice -- location to be determined. Patient is severely debilitated and will require multiple services at home.
[2020-08-13 15:57] LABS: Glucose, Whole Blood 304 mg/dL (60-115)
[2020-08-13] MEDS: Insulin Lispro 100 UNIT/ML 3 ML VIAL SUBCUT ×2 (16:18→21:10)
[2020-08-13 16:23] VITALS: O2SAT 95
[2020-08-13 19:08] VITALS: BP 139/64; PULSE 80; RESP 20; TEMP 36.2; O2SAT 94
[2020-08-13 19:48] LABS: Glucose, Whole Blood 207 mg/dL (60-115)
[2020-08-13] MEDS: Atorvastatin Calcium 20 MG TABLET PO (21:09)
[2020-08-13] MEDS: Montelukast Sodium 10 MG TABLET PO (21:09)
[2020-08-13] MEDS: Enoxaparin Sodium 40 MG/0.4 ML SYRINGE SUBCUT (21:09)
[2020-08-13] MEDS: Insulin Glargine,Hum.rec.anlog 100 UNIT/ML 10 ML VIAL 12 UNIT SUBCUT (21:10)
[2020-08-14] VITALS (10 sets, daily range): BP systolic 134–177; BP diastolic 65–89; PULSE 71–90; RESP 16–18; TEMP 36.3–37; O2SAT 92–95; BMI 25.1
[2020-08-14] MEDS: 0.9 % Sodium Chloride Flush 3 ML SYRINGE IVFLUSH ×4 (01:15→21:25)
[2020-08-14] MEDS: Omeprazole 20 MG CAPSULE.DR PO (06:34)
[2020-08-14] MEDS: Fluticasone/Vilanterol 200/25 BLST.W.DEV 1 PUFF INHALE (08:08)
[2020-08-14 08:20] LABS: Glucose, Whole Blood 87 mg/dL (60-115)
[2020-08-14] MEDS: dilTIAZem HCL CD 180 MG CAP.ER.24H PO ×2 (09:26→21:23)
[2020-08-14] MEDS: Cholecalciferol (Vitamin D3) 25 MCG TABLET PO (09:27)
[2020-08-14] MEDS: predniSONE 10 MG TABLET PO (09:27)
[2020-08-14] MEDS: Sucralfate 1 GM TABLET PO ×2 (09:27→21:23)
[2020-08-14] MEDS: Ferrous Sulfate 324 MG TABLET.DR PO (09:27)
[2020-08-14] MEDS: Furosemide 20 MG TABLET PO (09:27)
[2020-08-14] MEDS: Fluticasone Propionate Nasal 16 GM SPRAY 1 SPRAY NOSTRIL-B (09:27)
[2020-08-14] MEDS: Ascorbic Acid 500 MG TABLET PO (09:27)
[2020-08-14] MEDS: Losartan Potassium 50 MG TABLET 100 MG PO (09:27)
[2020-08-14] MEDS: Benzonatate 100 MG CAPSULE PO (09:43)
--- NOTE | 2020-08-14 10:34 | HO.PM.IMPN ---
Subjective Subjective Date of Service: 08/14/20 Interval History: seen and examined this AM tells me he is ready to go home and be with his family. Physical Exam Vital Signs: Vital Signs: Last Vital Signs Temp 97.6 F 08/14/20 07:37 Pulse 71 08/14/20 09:27 Resp 18 08/14/20 07:37 BP 177/84 H 08/14/20 09:27 Pulse Ox 95 08/14/20 07:37 Body Mass Index 25.1 Const: Other: General - ill appearing Cardiovascular - s1s2 Lungs - dim sounds, no distress; down to 4L FiO2 Abdomen - soft, nontender, no rebound or guarding Extremities - no edema bilaterally Neuro - awake and alert Objective Data Current Medications Generic Name Dose Route Start Last Admin Trade Name Freq PRN Reason Stop Dose Admin Acetaminophen 650 mg 07/31/20 17:56 Acetaminophen 325 Mg Tablet PO Q6H PRN Pain, Mild (Pain Scale 1-3) Albuterol Sulfate 2 puff 07/31/20 17:56 Albuterol Sulfate 90 Mcg 8 Gm Inhaler INHALE RQ4H PRN Shortness of Breath Ascorbic Acid 500 mg 08/01/20 09:00 08/14/20 09:27 Ascorbic Acid 500 Mg Tablet PO 500 mg DAILY MARIAM Administration Atorvastatin Calcium 20 mg 07/31/20 21:00 08/13/20 21:09 Atorvastatin Calcium 20 Mg Tablet PO 20 mg BEDTIME MARIAM Administration Benzocaine 1 lozenge 08/03/20 07:12 08/13/20 01:04 Throat Lozenge, Medicated Lozenge MUCOUS MEM 1 lozenge Q2H PRN Administration Sore Throat Benzonatate 100 mg 07/31/20 17:56 08/14/20 09:43 Benzonatate 100 Mg Capsule PO 100 mg TID PRN Administration cough Diltiazem HCl 180 mg 07/31/20 21:00 08/14/20 09:26 Diltiazem Hcl Cd 180 Mg Cap.Er.24h PO 180 mg BID MARIAM Administration Protocol Docusate Sodium 100 mg 07/31/20 17:56 08/13/20 14:14 Docusate Sodium 100 Mg Capsule PO 100 mg DAILY PRN Administration Constipation Enoxaparin Sodium 40 mg 07/31/20 20:00 08/13/20 21:09 Enoxaparin Sodium 40 Mg/0.4 Ml Syringe SUBCUT 40 mg Q24H MARIAM Administration Ferrous Sulfate 324 mg 08/01/20 09:00 08/14/20 09:27 Ferrous Sulfate 324 Mg Tablet. PO 324 mg DAILY MARIAM Administration Fluticasone Propionate 1 spray 08/01/20 09:00 08/14/20 09:27 Fluticasone Propionate Nasal 16 Gm [place] NOSTRIL-B 1 spray DAILY MARIAM Administration Fluticasone/Vilanterol 1 puff 08/01/20 08:00 08/14/20 08:08 Fluticasone/Vilanterol 200/25 Blst.W.Dev INHALE 1 puff RDAILY MARIAM Administration Furosemide 20 mg 08/07/20 09:00 08/14/20 09:27 Furosemide 20 Mg Tablet PO 20 mg DAILY MARIAM Administration Protocol Guaifenesin 600 mg 07/31/20 17:56 08/11/20 14:47 Guaifenesin [place] 600 Mg Tab.Er.12h PO 600 mg BID PRN Administration cough Insulin Glargine 12 unit 07/31/20 21:00 08/13/20 21:10 Insulin Glargine,Hum.Rec.Anlog 100 Unit/Ml 10 Ml Vial SUBCUT 12 unit BEDTIME MARIAM Administration Insulin Human Lispro 0 unit 07/31/20 21:00 08/14/20 08:02 Insulin Lispro 100 Unit/Ml 3 Ml Vial SUBCUT Not Given QIDACHS [facility] Protocol Losartan Potassium 100 mg 08/07/20 09:00 08/14/20 09:27 Losartan Potassium 50 Mg Tablet PO 100 mg DAILY MARIAM Administration Protocol Montelukast Sodium 10 mg 07/31/20 21:00 08/13/20 21:09 Montelukast Sodium 10 Mg Tablet PO 10 mg BEDTIME MARIAM Administration Omeprazole 20 mg 08/01/20 06:30 08/14/20 06:34 Omeprazole 20 Mg Capsule. PO 20 mg DAILY@0630 MARIAM Administration Ondansetron HCl 4 mg 07/31/20 17:56 Ondansetron Hcl 4 Mg/2 Ml Vial IVPUSH Q8H PRN Nausea and Vomiting Pharmacy Consult 1 each 07/31/20 15:17 Consult Rx Perform Med Rec MISCELLANE ONCE PRN Consult order Prednisone 10 mg 08/10/20 12:00 08/14/20 09:27 Prednisone 10 Mg Tablet PO 10 mg DAILY MARIAM Administration Sodium Chloride 3 ml 08/01/20 00:00 08/14/20 09:26 0.9 % Sodium Chloride Flush 3 Ml Syringe IVFLUSH 3 ml QSHIFT MARIAM Administration Sucralfate 1 gm 07/31/20 21:00 08/14/20 09:27 Sucralfate 1 Gm Tablet PO 1 gm BID MARIAM Administration Vitamin D 25 mcg 08/01/20 09:00 08/14/20 09:27 Cholecalciferol (Vitamin D3) 25 Mcg Tablet PO 25 mcg DAILY MARIAM Administration Labs CBC & Chem 7: 08/12/20 09:07 08/12/20 09:07 Microbiology Microbiology Results: Microbiology 07/31/20 16:14 Blood - Venous Blood Culture - Final No growth after 5 days. 07/31/20 14:25 Blood - Venous Blood Culture - Final No growth after 5 days. Assessment and Plan (1) COVID-19: Status: Acute Assessment and Plan: 79-year-old male with a history of steroid dependent COPD, anxiety, diabetes, polymyalgia rheumatica, PUD among others, recently diagnosed with COVID-19 here with shortness of breath and hypoxia 1. Acute resp. failure with hypoxia and viral sepsis secondary to COVID-19 O2 stable on 3-4L by [place] cannula Goal is above 88-90 completed 10 day course decadron + redesivir continue with supportive care 2. Physical deconditioning 2/2 acute illness, decrease PO intake 3. Acute sepsis (viral) encephalopathy, delirium multifactoral including covid + hospitalization + steroids + baseline severe anxiety Mitigate factors frequent reorientation improving 4. Uncontrolled DM basal+bolus worsened by steroids 5. Hyperlipidemia Continue statin 6. Polymyalgia rheumatica prednisone 10mg baseline 7. Hypertension Continue diltiazem, losartan 8. PUD Continue sucralfate, ppi 9. Severe anxiety prn xanax and non-pharmacological methods reassured him about his condition 10. ADALBERTO with metabolic acidosis resolved Full Code DVT pptx dispo: transition to hospice -- location to be determined. Patient is severely debilitated and will require multiple services at home. CM working on this.
--- NOTE | 2020-08-14 11:33 | MHC.CM.PN ---
The goal for dc is for Patient to return home with [facility], on 08/16/20; family is actively arranging for home care to supplement Hospice services. Hospice has been informed of the dc goal and will be arranging for home O2.MD is aware and CM will follow for dc planning.
[2020-08-14 11:37] LABS: Glucose, Whole Blood 148 mg/dL (60-115)
[2020-08-14] MEDS: guaiFENesin LA 600 MG TAB.ER.12H PO (13:34)
[2020-08-14 16:06] LABS: Glucose, Whole Blood 185 mg/dL (60-115)
[2020-08-14] MEDS: Insulin Lispro 100 UNIT/ML 3 ML VIAL SUBCUT ×2 (16:18→21:24)
[2020-08-14] MEDS: Docusate Sodium 100 MG CAPSULE PO (16:26)
[2020-08-14] MEDS: ondansetron HCL 4 MG/2 ML VIAL IVPUSH (16:26)
[2020-08-14 20:29] LABS: Glucose, Whole Blood 188 mg/dL (60-115)
[2020-08-14] MEDS: Atorvastatin Calcium 20 MG TABLET PO (21:23)
[2020-08-14] MEDS: Montelukast Sodium 10 MG TABLET PO (21:23)
[2020-08-14] MEDS: Enoxaparin Sodium 40 MG/0.4 ML SYRINGE SUBCUT (21:23)
[2020-08-14] MEDS: Insulin Glargine,Hum.rec.anlog 100 UNIT/ML 10 ML VIAL 12 UNIT SUBCUT (21:25)
[2020-08-15] VITALS (9 sets, daily range): BP systolic 137–159; BP diastolic 58–77; PULSE 73–86; RESP 16–20; TEMP 36.1–36.7; O2SAT 90–97; BMI 25.6
[2020-08-15] MEDS: Omeprazole 20 MG CAPSULE.DR PO (05:50)
[2020-08-15 08:00] LABS: Glucose, Whole Blood 88 mg/dL (60-115)
[2020-08-15] MEDS: Fluticasone/Vilanterol 200/25 BLST.W.DEV 1 PUFF INHALE (08:26)
[2020-08-15] MEDS: predniSONE 10 MG TABLET PO (08:49)
[2020-08-15] MEDS: 0.9 % Sodium Chloride Flush 3 ML SYRINGE IVFLUSH ×3 (08:49→21:28)
[2020-08-15] MEDS: Sucralfate 1 GM TABLET PO ×2 (08:49→21:27)
[2020-08-15] MEDS: dilTIAZem HCL CD 180 MG CAP.ER.24H PO ×2 (08:49→21:28)
[2020-08-15] MEDS: Ferrous Sulfate 324 MG TABLET.DR PO (08:49)
[2020-08-15] MEDS: Cholecalciferol (Vitamin D3) 25 MCG TABLET PO (08:49)
[2020-08-15] MEDS: Furosemide 20 MG TABLET PO (08:49)
[2020-08-15] MEDS: Losartan Potassium 50 MG TABLET 100 MG PO (08:49)
[2020-08-15] MEDS: Ascorbic Acid 500 MG TABLET PO (08:49)
[2020-08-15] MEDS: Fluticasone Propionate Nasal 16 GM SPRAY 1 SPRAY NOSTRIL-B (08:50)
[2020-08-15 12:06] LABS: Glucose, Whole Blood 137 mg/dL (60-115)
--- NOTE | 2020-08-15 12:42 | PM.EVENT ---
Event Note Date of Service: 08/15/20 Event Note: Progress Note S Seen and examined Reports he in a better place mentally after hospice decision. He just asks that we dont reverse that decision. I have told him that since he has made this decision as long as he wants it, we will move forward with it. O Vitals - stable Gen - awake and alert; NAD CVS - S1S2 Lungs - no distress Abd - soft nt/nd Neuro - non-focal; awake and alert A/p 79 yo M with multiple co-morbidities who is admitted for resp. failure due to covid. He and family had decided upon transition to hospice -- will be d/c 08/16/2019; continue current mgmt dispo: home with hospice tomorrow once family is able to set up services at home.
[2020-08-15] MEDS: Throat Lozenge, Medicated LOZENGE 1 LOZENGE MUCOUS MEM ×2 (12:58→21:49)
[2020-08-15] MEDS: polyethylene glycoL 3350 17 GM POWD.PACK PO (12:58)
--- NOTE | 2020-08-15 14:33 | MHC.CM.PN ---
Patient will be dc to home tomorrow at noon, via [facility] at 2 PM, with [facility]. IMM addressed with /HCP/Pat at [phone] and original will be mailed certified letter to Pat and a copy placed on the chart. Patient/family aware of and in agreement with the dc plan. Hospital bed has already been delivered; family still awaits O2 to be delivered.
[2020-08-15 17:06] LABS: Glucose, Whole Blood 165 mg/dL (60-115)
[2020-08-15 19:46] LABS: Glucose, Whole Blood 150 mg/dL (60-115)
[2020-08-15 20:20] LABS: Glucose, Whole Blood 130 mg/dL (60-115)
[2020-08-15] MEDS: Montelukast Sodium 10 MG TABLET PO (21:27)
[2020-08-15] MEDS: Enoxaparin Sodium 40 MG/0.4 ML SYRINGE SUBCUT (21:27)
[2020-08-15] MEDS: Atorvastatin Calcium 20 MG TABLET PO (21:28)
[2020-08-16 03:23] VITALS: BP 150/68; PULSE 75; RESP 18; TEMP 36.6; O2SAT 97
[2020-08-16 06:00] VITALS: BMI 25.5
[2020-08-16 07:38] LABS: Glucose, Whole Blood 97 mg/dL (60-115)
[2020-08-16 08:00] VITALS: BP 133/63; PULSE 83; RESP 22; TEMP 36.4; O2SAT 97
[2020-08-16] MEDS: Ferrous Sulfate 324 MG TABLET.DR PO (08:42)
[2020-08-16] MEDS: Losartan Potassium 50 MG TABLET 100 MG PO (08:42)
[2020-08-16] MEDS: Sucralfate 1 GM TABLET PO (08:42)
[2020-08-16] MEDS: 0.9 % Sodium Chloride Flush 3 ML SYRINGE IVFLUSH (08:42)
[2020-08-16] MEDS: predniSONE 10 MG TABLET PO (08:42)
[2020-08-16] MEDS: dilTIAZem HCL CD 180 MG CAP.ER.24H PO (08:42)
[2020-08-16] MEDS: Cholecalciferol (Vitamin D3) 25 MCG TABLET PO (08:43)
[2020-08-16] MEDS: Ascorbic Acid 500 MG TABLET PO (08:43)
[2020-08-16] MEDS: polyethylene glycoL 3350 17 GM POWD.PACK PO (08:43)
[2020-08-16] MEDS: Furosemide 20 MG TABLET PO (08:43)
--- NOTE | 2020-08-16 09:07 | PM.DS ---
DS: Providers Provider Date of Service: 08/16/20 Date of admission: 07/31/20 17:05 Primary care physician: Unknown Physician Consults: 07/31/20 17:56 Consult to Infectious Diseases Routine Consulting Provider: Mariam Woodruff Reason for consultation: [email or web address] Has provider been notified: No DS: Diagnosis Discharge Diagnosis (1) COVID-19: Status: Acute (2) Viral sepsis: Status: Acute (3) Acute respiratory failure with hypoxia: Status: Acute (4) Septic encephalopathy: Status: Acute (5) Type 2 diabetes mellitus with hyperglycemia: Status: Acute (6) PMR (polymyalgia rheumatica): Status: Acute DS: Medications Discharge Medications Home Medications: Home Medications Medication Instructions Recorded Confirmed albuterol sulfate 90 mcg/actuation 90 mcg INHALATION Q6-8H PRN 03/17/20 07/31/20 aerosol inhaler ferrous sulfate 325 mg (65 mg 325 mg PO DAILY 03/17/20 07/31/20 iron) tablet,delayed release fluticasone 250 mcg-salmeterol 50 1 inh INHALATION BID 03/17/20 07/31/20 mcg/dose blistr powdr for inhalation fluticasone propionate 50 1 spray INTRANASAL DAILY 03/17/20 07/31/20 mcg/actuation nasal spray,suspension insulin lispro 100 unit/mL 5 unit SUBCUT TIDAC 03/17/20 07/31/20 subcutaneous solution losartan 50 mg tablet 50 mg PO DAILY 03/17/20 07/31/20 alprazolam 0.5 mg PO Q6H PRN 07/31/20 07/31/20 ascorbic acid (vitamin C) [Vitamin 500 mg PO DAILY 07/31/20 07/31/20 C] atorvastatin 20 mg PO BEDTIME 07/31/20 07/31/20 cholecalciferol (vitamin D3) 25 mcg PO DAILY 07/31/20 07/31/20 montelukast 10 mg PO BEDTIME 07/31/20 07/31/20 nystatin 4 ml PO BID 07/31/20 07/31/20 Previous Rx's Medication Instructions Recorded pantoprazole 40 mg tablet,delayed 40 mg PO DAILY #90 tab 05/06/20 release furosemide 20 mg tablet 20 mg PO Q OTHER DAY 60 Days #30 06/18/20 tab diltiazem HCl 180 mg 180 mg PO BID 90 Days #180 cap 01/04/21 capsule,extended release 24 hr sucralfate 1 gram tablet 1 g PO BID #180 tab 06/23/20 Lantus U-100 Insulin 12 unit SUBCUT BEDTIME #10 ml 07/02/20 guaifenesin [Mucinex] 600 mg PO BID PRN #30 tab 07/02/20 benzonatate [Tessalon Perles] 100 mg PO TID PRN #30 cap 07/27/20 lorazepam [Ativan] 0.5 mg PO TID PRN #30 tab 08/16/20 morphine concentrate 5 mg PO Q6H PRN #30 ml 08/16/20 polyethylene glycol 3350 [Miralax] 17 g PO DAILY PRN 30 Days #510 g 08/16/20 prednisone 10 mg PO DAILY #30 tab 08/16/20 DS: Summary Hospital Course Hospital Course: Patient presented with respiratory failure secondary to COVID-19. He was started on supplemental oxygen and was treated with IV Decadron, remdesivir. His condition continue to deteriorate despite this and his O2 requirements continued to increase. He developed septic encephalopathy in hospital delirium. Multiple discussions were held with the patient's and daughter who are the healthcare proxies. Patient's wetlands conservation laborer/PCP came to see the patient as well and ultimately the decision was made to transition him to hospice care. Patient's overall status did improve and his encephalopathy resolved. He was able to verbalize his own wishes stating that he was ready to go home and spend the remainder of his days with his family. A MOL[facility] form was completed with him and he was able to verbalize understanding of with the form entail. He will be discharged home to continue hospice care. Time Spent with Patient Time attestation: Total time spent providing and/or coordinating discharge services: Discharge coordination time: Greater than 30 minutes Physical Exam Vital Signs: Vital Signs: Last Vital Signs Temp 97.6 F 08/16/20 08:00 Pulse 83 08/16/20 08:00 Resp 22 H 08/16/20 08:00 BP 133/63 08/16/20 08:00 Pulse Ox 97 08/16/20 08:00 Body Mass Index 25.5 Const: Other: General - no acute distress, appears comfortable; chronically ill appearing Cardiovascular - s1s2 Lungs - No respiratory dsitress, saturating 97 on 3L Abdomen - soft, nontender, no rebound or guarding Neuro - awake and alert, no focal deficits; oriented to place/time/situation Psych - appropriate affect DS: Data Data Completed and Pending Labs on day of discharge: Laboratory Results - last 24 hr 08/15/20 08/15/20 08/15/20 11:54 17:00 19:39 POC Glucose 137 H 165 H 150 H 08/15/20 08/16/20 20:16 07:24 POC Glucose 130 H 97 Discharge Plan Discharge Patient Disposition: Hospice - Home Referrals: [facility] [Outside] Po,Lorna Chavez MD [Physician] - 1 Week ( Please call and schedule a follow up within 1 week. ) Discharge Medications: New prednisone 10 mg Tablet 10 mg PO DAILY Qty: 30 RF: 0 morphine concentrate 100 mg/5 mL (20 mg/mL) solution 5 mg PO Q6H PRN (Reason: pain/shortness of b) Qty: 30 RF: 0 lorazepam [Ativan] 0.5 mg tablet 0.5 mg PO TID PRN (Reason: anxiety) Qty: 30 RF: 0 polyethylene glycol 3350 [Miralax] 17 gram/dose powder 17 g PO DAILY PRN (Reason: constipation) 30 Days Qty: 510 RF: 0 Continued pantoprazole 40 mg tablet,delayed release (DR/EC) 40 mg PO DAILY Qty: 90 RF: 3 furosemide [Lasix] 20 mg tablet 20 mg PO Q OTHER DAY 60 Days Qty: 30 RF: 1 Lantus U-100 Insulin 100 unit/mL Solution 12 unit subcut BEDTIME Qty: 10 RF: 0 guaifenesin [Mucinex] 600 mg Tablet Extended Release 12hr 600 mg PO BID PRN (Reason: cough) Qty: 30 RF: 0 benzonatate [Tessalon Perles] 100 mg capsule 100 mg PO TID PRN (Reason: cough) Qty: 30 RF: 0 alprazolam 0.5 mg tablet 0.5 mg PO Q6H PRN (Reason: Anxiety) RF: 0 ascorbic acid (vitamin C) [Vitamin C] 500 mg Tablet,Chewable 500 mg PO DAILY RF: 0 nystatin 100,000 unit/mL suspension 4 ml PO BID RF: 0 atorvastatin 20 mg tablet 20 mg PO BEDTIME RF: 0 montelukast 10 mg tablet 10 mg PO BEDTIME RF: 0 cholecalciferol (vitamin D3) 25 mcg (1,000 unit) Tablet 25 mcg PO DAILY RF: 0 diltiazem HCl 180 mg capsule,extended release 24hr 180 mg PO BID 90 Days Qty: 180 RF: 2 sucralfate 1 gram tablet 1 g PO BID Qty: 180 RF: 3 albuterol sulfate 90 mcg/actuation HFA aerosol inhaler 90 mcg inhalation Q6-8H PRN (Reason: Wheezing) RF: 0 fluticasone propion-salmeterol 250-50 mcg/dose blister with device 1 inh inhalation BID RF: 0 losartan 50 mg tablet 50 mg PO DAILY RF: 0 insulin lispro 100 unit/mL solution 5 unit subcut TIDAC RF: 0 fluticasone propionate 50 mcg/actuation spray,suspension 1 spray intranasal DAILY RF: 0 ferrous sulfate 325 mg (65 mg iron) tablet,delayed release (DR/EC) 325 mg PO DAILY RF: 0 Discontinued prednisone 20 mg tablet 40 mg PO DAILY Qty: 12 RF: 0 Discharge Orders: Discharge Order (Routine); Ordered 08/16/20 Ordered By: Lamonte Guadalupe Diet: advance to usual diet Activity on Discharge: As tolerated Stand Alone Forms: Patient Portal Discharge page Care Plan Goals: To stay healthy and out of the hospital. Health Concerns: COVID Hospice Care Plan of Treatment: You will be transitioning to hospice care at home.
[2020-08-16] MEDS: ALPRAZolam 0.5 MG TABLET PO (09:14)
[2020-08-16] MEDS: Fluticasone Propionate Nasal 16 GM SPRAY 1 SPRAY NOSTRIL-B (09:18)
--- NOTE | 2020-08-16 10:28 | MHC.CM.PN ---
MONICA spoke to pts this morning to confirm pts DC plan. She reports the hospital bed and home O2 were already delivered. She states she and the pts adult children were working on getting home care but they will not start until at least Tuesday. She is hoping the hospice agency can teach her how to roll pt in the event she needs to do so. She also reports an air mattress was delivered to the home last night. She reports the delivery engineer set it up but then she decided to sit on it and it deflated. She reports she can hear the air coming out when she sits on it. MONICA informed her the [facility] nurse primary montessori teacher would be contacted to ensure the equipment was working before the pt was sent home. MONICA spoke to Lorri from [facility] [place]. She reports that is what the mattress is supposed to do. She states you can hear the air when you lie on it. Lorri confirms she will be admitting the pt to service today so she will be able to explain this to the pts while she is there. MONICA called pts , Valerie ([phone]) and gave her the above info and confirmed that the hospice nurse would be coming to admit the pt to service after he is home. Pt will DC home with [facility] services today at 1200 hours via BLS
[2020-08-16 11:19] LABS: Glucose, Whole Blood 225 mg/dL (60-115)
[2020-08-16] MEDS: Insulin Lispro 100 UNIT/ML 3 ML VIAL SUBCUT (11:33)
== END 2020-08-16 12:10 | disposition hospice, home (50) | DRG 871 ==
LOC: HO.ED 16:23 → HO.EDOVER 17:17 → HO.IMC 20:35
PROVIDERS: Hospitalist; Internal Medicine; Physician Assistant Medical; Student in an Organized Health Care Education/Training Program; Admitting Provider Family Medicine; Emergency Provider Internal Medicine; PCP Internal Medicine; Visit Provider Family Medicine
DX: A41.89 Other specified sepsis (principal); U07.1 COVID-19; J12.82 Pneumonia due to coronavirus disease 2019; J96.01 Acute respiratory failure with hypoxia; E87.2 Acidosis; F05 Delirium due to known physiological condition; G93.40 Encephalopathy, unspecified; F41.9 Anxiety disorder, unspecified; E11.65 Type 2 diabetes mellitus with hyperglycemia; K27.9 Peptic ulcer, site unspecified, unspecified as acute or chronic, without hemorrhage or perforation; E78.5 Hyperlipidemia, unspecified; M35.3 Polymyalgia rheumatica; Z87.891 Personal history of nicotine dependence; Z88.0 Allergy status to penicillin; Z88.2 Allergy status to sulfonamides; Z79.4 Long term (current) use of insulin; Z79.52 Long term (current) use of systemic steroids; Z79.899 Other long term (current) drug therapy
CPT/HCPCS: 36415; 71045; 71250; 80048; 80076; 82728; 82803; 82947; 83605; 83735; 84145; 84484; 85025; 85027; 85379; 85610; 85730; 86140; 87040; 93005; 94640; 94644; 96365; 96367; 96375; 99285; J0696; J1100; J1650; J1940; J2060; J2405; J3490

== ENCOUNTER → 2024-02-15 13:56 | Outpatient (RCR) | payer MEDICARE, BC, SELFPAY ==
--- NOTE | 2020-05-05 15:29 | MHC.HEMONC ---
Pt was scheduled for televisit with Dr Grant. Pt was called with no answer. also called with no answer. Message left with both
--- NOTE | 2020-05-05 15:40 | HO.HEMONCTE1 ---
[facility] Telehealth - Telehealth Location of Provider rendering services: Office Location of Patient: Home Patient Identification confirmed using: Name, : Yes Telehealth Method: Telephone Patient verbally consented to billing insurance company: Yes Patient informed of any privacy concerns related to visit: Yes Medical Summary - Medical Summary Chief complaint: Follow up Medical Summary: Diagnosis: Normocytic anemia Longstanding history of polymyalgia rheumatica and chronic kidney disease. Normocytic anemia since 2016. In December 2016 patient had upper GI bleeding, underwent EGD with sclerotherapy by Dr. James. He was on prednisone 20 mg once a day, this has been lowered to 5 mg a day. Normal vitamin B12 and folate levels. Serum protein electrophoresis/immunofixation normal. Interval History Interval history: This is a scheduled follow-up for patient, tele visit because of COVID-19 pandemic guidelines. Patient states that he is feeling a bit discouraged because of persistent pain in his legs. He was going to the pain clinic here at [facility], he did not like to be on narcotics. He is now going to see someone at [facility]. He has had cortisone injections. All this started in October of this year after a fall. He denies any swelling of the calf or redness. He has pain only when he walks. He denies chest pain, shortness of breath, dizziness but reports overall weakness. Review of Systems - Constitutional Reports as per HPI, Reports no additional constitutional complaints - Cardiovascular Reports no additional cardiovascular complaints - Respiratory Reports no additional respiratory complaints Home Medications and Allergies Home Medications Medication Instructions Recorded Confirmed Type albuterol sulfate 90 mcg/actuation INHALATION 03/17/20 04/03/20 History aerosol inhaler alprazolam 0.5 mg tablet mg PO 03/17/20 04/03/20 History atorvastatin 20 mg tablet 20 mg PO DAILY 03/17/20 04/03/20 History benzonatate 100 mg capsule 100 mg PO TID 03/17/20 04/03/20 History blood sugar diagnostic #10 ea 03/17/20 04/03/20 History diltiazem HCl 180 mg mg PO 03/17/20 04/03/20 History capsule,extended release 24 hr ferrous sulfate 325 mg (65 mg 325 mg PO DAILY 03/17/20 04/03/20 History iron) tablet,delayed release fluticasone 250 mcg-salmeterol 50 INHALATION 03/17/20 04/03/20 History mcg/dose blistr powdr for inhalation fluticasone propionate 50 INTRANASAL 03/17/20 04/03/20 History mcg/actuation nasal spray,suspension insulin glargine 100 unit/mL unit SUBCUT 03/17/20 04/03/20 History subcutaneous solution insulin lispro 100 unit/mL SUBCUT 03/17/20 04/03/20 History subcutaneous solution insulin syringe-needle U-100 0.5 #10 ea 03/17/20 04/03/20 History mL 31 gauge x 5/16 ipratropium 0.5 mg-albuterol 3 mg ml INHALATION 03/17/20 04/03/20 History (2.5 mg base)/3 mL nebulization soln losartan 50 mg tablet mg PO 03/17/20 04/03/20 History metformin 500 mg tablet 500 mg PO BID 03/17/20 04/03/20 History neomycin 3.5 mg/g-polymyxin B OPHTHALMIC (EYE) ONCE 03/17/20 04/03/20 History 10,000 unit/g-dexameth 0.1 % eye oint prednisone 10 mg tablet 10 mg PO BID 03/17/20 04/03/20 History prednisone 5 mg tablet mg PO 03/17/20 04/03/20 History promethazine 6.25 mg-codeine 10 ml PO 03/17/20 04/03/20 History mg/5 mL syrup sucralfate 1 gram tablet PO 03/17/20 04/03/20 History tizanidine 4 mg tablet 4 mg PO TID 03/17/20 04/03/20 History Allergies Allergy/AdvReac Type Severity Reaction Status Date / Time ELLEN Inhibitors Allergy Severe DIFFICULTY Verified 05/01/20 13:53 [ELLEN INHIBITORS] BREATHING egg [EGGS] Allergy Severe DIFFICULTY Verified 05/01/20 13:53 BREATHING nut - unspecified [nut] Allergy Severe ANAPHYLAXIS Verified 05/01/20 13:53 acetic acid [VINEGAR] Allergy Unknown UNKNOWN Verified 05/01/20 13:53 hydrochlorothiazide Allergy Unknown Unknown Verified 05/01/20 13:53 mold Allergy Unknown SHORTNESS Verified 05/01/20 13:53 OF BREATH niacin [From SIMCOR] Allergy Unknown SHORTNESS Verified 05/01/20 13:53 OF BREATH penicillin V Allergy Unknown throat Verified 05/01/20 13:53 swelling simvastatin Allergy Unknown Unknown Verified 04/03/20 14:54 Sulfa (Sulfonamide Allergy Unknown SWELLING Unverified 04/03/20 14:54 Antibiotics) [SULFA (SULFONAMIDE ANTIBIOTICS)] tramadol Allergy Unknown Unknown Verified 04/03/20 14:54 wheat Allergy Unknown UNKNOWN Unverified 04/03/20 14:54 corn syrup [CORN SYRUP] AdvReac Mild N/D Unverified 04/03/20 14:54 lactose [LACTOSE] AdvReac Mild N/V/D Unverified 04/03/20 14:54 FLU VACCINE Allergy Unknown Difficulty Uncoded 04/03/20 14:54 Breathing Progress Note: A/P (1) Anemia Status: Chronic Assessment and plan: 1. This is a 79-year-old male with multiple medical problems presenting with chronic normocytic anemia dating back to 2017. He has mild iron deficiency as well as chronic kidney disease. Rest of hematological workup is negative. He probably has anemia of chronic disease. However, we need a bone marrow aspiration /biopsy to rule out other hematological disorders such as myelodysplastic syndrome/lymphoma or other hematological malignancies. He would like to defer that for now. 2. Chronic leukocytosis probably related to prednisone use. He is usually on 5 mg for his polymyalgia rheumatica. At this time he is on 30 mg for his bronchitis. This is being tapered off. On his next visit I will submit blood for flow cytometry as well as bcr/ABL translocation. Check CBC, arrange for home draw. - Time Spent With Patient Total time spent is greater than 50% in coordination of care (as documented) at patient's floor/unit and/or counseling patient: 15 - 24 minutes
--- NOTE | 2020-05-05 15:56 | MHC.HEMONC ---
Pt called for televisit. States not feeling well. States right leg is sore and painful, difficulty walking. Had cortisone shot in March. States is being followed by Dr James for bleeding, and per pt everything is the same. Put through to Dr Grant for televisit.
--- NOTE | 2020-05-27 14:10 | MHC.HEMONC ---
Labs 05/09/20 hgb 9.[address] Grant, patient states he is having a home draw this week. Patient KEILA tuttle called states he is having a home draw tomorrow. Based on labs results patient will be booked for a T&S and transfusion.
[2020-06-10 08:45] VITALS: BP 147/71; PULSE 70; RESP 12; TEMP 36.6; O2SAT 97; BMI 26.6
[2020-06-10 08:46] LABS: MANUAL DIFF FLAG NO
[2020-06-10 08:49] LABS: Basophils Absolute Auto 0.1 X10*3/uL (0.0-0.2); Basophils Percent Auto 0.5 % (0-2); Eosinophils Absolute Auto 0.2 X10*3/uL (0.0-0.4); Eosinophils Percent Auto 1.6 % (0-4); Hematocrit 27.8 % (42-52); Hemoglobin 9.1 g/dl (14.0-18.0); Imm Gran Abs Auto 0.19 X10*3/uL (0.00-0.03); Imm Gran Pct Auto 1.7 % (0.0-0.4); Lymphocytes Absolute Auto 2.8 X10*3/uL (1.2-4.9); Lymphocytes Percent Auto 24.7 % (20-40); Mean Corpuscular HGB Conc 32.7 g/dl (31.0-36.0); Mean Corpuscular Hemoglobin 32.4 pg (27.0-33.0); Mean Corpuscular Volume 98.9 fL (80-98); Mean Platelet Volume 10.4 fL (9.4-12.4); Monocytes Absolute Auto 0.8 X10*3/uL (0.1-1.2); Monocytes Percent Auto 7.2 % (2-11); Neutrophils Absolute Auto 7.4 X10*3/uL (2.0-8.3); Neutrophils Percent Auto 64.3 % (45-73); Platelet Count 302 X10*3/uL (160-400); Red Blood Count 2.81 X10*6/uL (4.60-5.80); Red Cell Distribution Width 15.2 % (11.0-16.0); White Blood Count 11.5 X10*3/uL (4.8-10.8)
--- NOTE | 2020-06-10 12:17 | PM.HEMONCPN ---
Medical Summary - Medical Summary Date of Service: 06/10/20 Chief complaint: Generalized weakness Medical Summary: Diagnosis: Normocytic anemia Longstanding history of polymyalgia rheumatica and chronic kidney disease. Normocytic anemia since 2017. In December 2016 patient had upper GI bleeding, underwent EGD with sclerotherapy by Dr. James. He was on prednisone 20 mg once a day, this has been lowered to 5 mg a day. Normal vitamin B12 and folate levels. Serum protein electrophoresis/immunofixation normal. Interval History Interval history: Patient is here in follow-up. Today, he is accompanied by his daughter. Over the last few weeks he has become progressively weak as well as forgetful. He is essentially wheelchair bound and attributes this to weakness which is causing him inability to get up and walk. He has chronic pain in his right hip and knee from a remote fall. He is on prednisone 5 mg daily. He states that this weakness is similar to a flare of PMR but he had sometime ago. He denies any fever or chills. No chest pain or shortness of breath. He has been evaluated by accountancy professor and has not been found to have any concern for GI bleeding. His COPD is stable and under control. Review of Systems - Constitutional Reports as per HPI, Reports no additional constitutional complaints - Cardiovascular Reports no additional cardiovascular complaints - Respiratory Reports no additional respiratory complaints - Gastrointestinal Reports no additional gastrointestinal complaints [facility] Medical History: Medical History (Last Updated 06/10/20 @ 12:20 by Diana Grant MD) Allergic rhinitis Asthma Bronchitis Cataracts, bilateral COPD (chronic obstructive pulmonary disease) Hx of hiatal hernia PMR (polymyalgia rheumatica) Family History: Family History (Last Updated 06/10/20 @ 08:55 by Delicia Perez) Family/Other Cancer Surgical History: Surgical History (Last Updated 06/10/20 @ 08:54 by Delicia Perez) Hx of appendectomy S/P triple vessel bypass Smoking status: Former smoker Oncology Screenings - ECOG Performance Status ECOG Performance Status: 3 Home Medications and Allergies Home Medications Medication Instructions Recorded Confirmed Type albuterol sulfate 90 mcg/actuation 90 mcg INHALATION Q6-8H PRN 03/17/20 06/10/20 History aerosol inhaler alprazolam 0.5 mg tablet 0.5 mg PO DAILY PRN 03/17/20 06/10/20 History blood sugar diagnostic #10 ea 03/17/20 04/03/20 History diltiazem HCl 180 mg 180 mg PO DAILY 03/17/20 06/10/20 History capsule,extended release 24 hr ferrous sulfate 325 mg (65 mg 325 mg PO DAILY 03/17/20 06/10/20 History iron) tablet,delayed release fluticasone 250 mcg-salmeterol 50 1 inh INHALATION DAILY 03/17/20 06/10/20 History mcg/dose blistr powdr for inhalation fluticasone propionate 50 1 spray INTRANASAL DAILY 03/17/20 06/10/20 History mcg/actuation nasal spray,suspension insulin glargine 100 unit/mL 100 unit SUBCUT DAILY 03/17/20 06/10/20 History subcutaneous solution insulin lispro 100 unit/mL 100 sliding scale dose SUBCUT DAILY 03/17/20 06/10/20 History subcutaneous solution ipratropium 0.5 mg-albuterol 3 mg 0.5 ml INHALATION Q4-6H 03/17/20 06/10/20 History (2.5 mg base)/3 mL nebulization soln losartan 50 mg tablet 50 mg PO DAILY 03/17/20 06/10/20 History metformin 500 mg tablet 500 mg PO BID 03/17/20 06/10/20 History sucralfate 1 gram tablet 1 g PO DAILY 03/17/20 06/10/20 History tizanidine 4 mg tablet 4 mg PO TID 03/17/20 06/10/20 History hydrocodone 5 mg-acetaminophen 325 1 tab PO BID PRN 05/29/20 06/10/20 History mg tablet Allergies Allergy/AdvReac Type Severity Reaction Status Date / Time ELLEN Inhibitors Allergy Severe DIFFICULTY Verified 05/29/20 11:28 [ELLEN INHIBITORS] BREATHING egg [EGGS] Allergy Severe DIFFICULTY Verified 05/29/20 11:28 BREATHING nut - unspecified [nut] Allergy Severe ANAPHYLAXIS Verified 05/29/20 11:28 acetic acid [VINEGAR] Allergy Unknown UNKNOWN Verified 05/29/20 11:28 hydrochlorothiazide Allergy Unknown Unknown Verified 05/29/20 11:28 mold Allergy Unknown SHORTNESS Verified 05/29/20 11:28 OF BREATH niacin [From SIMCOR] Allergy Unknown SHORTNESS Verified 05/29/20 11:28 OF BREATH penicillin V Allergy Unknown throat Verified 05/29/20 11:28 swelling simvastatin Allergy Unknown Unknown Verified 04/03/20 14:54 Sulfa (Sulfonamide Allergy Unknown SWELLING Unverified 04/03/20 14:54 Antibiotics) [SULFA (SULFONAMIDE ANTIBIOTICS)] tramadol Allergy Unknown Unknown Verified 04/03/20 14:54 wheat Allergy Unknown UNKNOWN Unverified 04/03/20 14:54 corn syrup [CORN SYRUP] AdvReac Mild N/D Unverified 04/03/20 14:54 lactose [LACTOSE] AdvReac Mild N/V/D Unverified 04/03/20 14:54 FLU VACCINE Allergy Unknown Difficulty Uncoded 04/03/20 14:54 Breathing Exam Vital signs: Vital Signs Temp 97.9 F 06/10/20 08:45 Pulse 70 06/10/20 08:45 Resp 12 06/10/20 08:45 BP 147/71 H 06/10/20 08:45 Pulse Ox 97 06/10/20 08:45 Intake & Output 06/09/20 06/10/20 06/10/20 18:59 06:59 18:59 Other: Weight 79.4 kg Weight 79.4 kg Body Mass Index 26.6 - Constitutional Present: no acute distress - Routine HEENT Exam Head: Present: normal inspection Eye: Present: EOMI - Routine Respiratory Exam Present: CTAB - Routine Cardiovascular Exam Cardiovascular: Present: S1, S2 Data - Labs CBC & Chem 7: 06/10/20 08:35 Labs: 06/10/20 08:35 Complete Blood Count Auto Diff Routine Laboratory Last Values WBC 11.5 X10*3/uL (4.8-10.8) H 06/10/20 08:35 RBC 2.81 X10*6/uL (4.60-5.80) L 06/10/20 08:35 Hgb 9.1 g/dl (14.0-18.0) L 06/10/20 08:35 Hct 27.8 % (42-52) L 06/10/20 08:35 MCV 98.9 fL (80-98) H 06/10/20 08:35 MCH 32.4 pg (27.0-33.0) 06/10/20 08:35 MCHC 32.7 g/dl (31.0-36.0) 06/10/20 08:35 RDW 15.2 % (11.0-16.0) 06/10/20 08:35 Plt Count 302 X10*3/uL (160-400) 06/10/20 08:35 MPV 10.4 fL (9.4-12.4) 06/10/20 08:35 Immature Gran % (Auto) 1.7 % (0.0-0.4) H 06/10/20 08:35 Neut % (Auto) 64.3 % (45-73) 06/10/20 08:35 Lymph % (Auto) 24.7 % (20-40) 06/10/20 08:35 [place] % (Auto) 7.2 % (2-11) 06/10/20 08:35 Eos % (Auto) 1.6 % (0-4) 06/10/20 08:35 Baso % (Auto) 0.5 % (0-2) 06/10/20 08:35 Lymph # (Auto) 2.8 X10*3/uL (1.2-4.9) 06/10/20 08:35 [place] # (Auto) 0.8 X10*3/uL (0.1-1.2) 06/10/20 08:35 Eos # (Auto) 0.2 X10*3/uL (0.0-0.4) 06/10/20 08:35 Baso # (Auto) 0.1 X10*3/uL (0.0-0.2) 06/10/20 08:35 Abs Immat Gran (auto) 0.19 X10*3/uL (0.00-0.03) H 06/10/20 08:35 Absolute Neuts (auto) 7.4 X10*3/uL (2.0-8.3) 06/10/20 08:35 Absolute Nucleated RBC 0.000 X10*3/uL (0.0-0.012) 06/10/20 08:35 Nucleated RBC % (auto) 0.0 /100WBC (0.0-0.2) 06/10/20 08:35 Progress Note: A/P (1) Anemia Problem details: IT IS SEC TO ANEMIA OF CHRONIC DISEASE , AND ALSO POSSIBLE LOW GRADE GI BLEEDS . CONT. TO G U WITH HEMATOLOGY . Status: Chronic Assessment and plan: 1. This is a 79-year-old male with multiple medical problems presenting with chronic normocytic anemia dating back to 2017. He has mild iron deficiency as well as chronic kidney disease. Rest of hematological workup is negative. He probably has anemia of chronic disease. However, we need a bone marrow aspiration /biopsy to rule out other hematological disorders such as myelodysplastic syndrome/lymphoma or other hematological malignancies. He is willing to consider this in the future. 2. Chronic leukocytosis probably related to prednisone use. Blood flow cytometry has been submitted today. 3. Generalized weakness similar to his previous flare of PMR. 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 I also discussed his case with his PCP who feels that increasing his prednisone to 10 mg daily may help his symptoms. Follow-up in 1 month. - Time Spent With Patient Total time spent is greater than 50% in coordination of care (as documented) at patient's floor/unit and/or counseling patient: 15 - 24 minutes
[2020-06-11 16:37] LABS: LLE Markers 23
== END | disposition home or self-care (01) ==
LOC: HO.ONC 06-10 08:19
PROVIDERS: PCP Internal Medicine; Visit Provider Internal Medicine
DX: D64.9 Anemia, unspecified (principal); E61.1 Iron deficiency; D72.829 Elevated white blood cell count, unspecified; N18.9 Chronic kidney disease, unspecified; M35.3 Polymyalgia rheumatica; R53.1 Weakness; Z79.52 Long term (current) use of systemic steroids
CPT/HCPCS: 36415; 85025; 88184; 88185; 88189; 99214; Q3014